=== PATIENT | male | born 1945 | race Caucasian/White ===

== ENCOUNTER 2019-02-06 05:46 | Inpatient (IN) | payer MEDICARE, OTHER ==
[2019-02-06 06:50] LABS: Basophils # (A) 0.1 k/uL (0-0.2); Basophils % (A) 0 %; Eosinophils # (A) 0.1 k/uL (0-0.7); Eosinophils % (A) 0 %; HCT 38.5 % (39.0-53.0); Hypochromasia Slight; Lymphocytes % (A) 4 %; MCH 28.8 pg (25.0-35.0); MCHC 31.1 g/dL (31.0-37.0); MCV 92.5 fL (80.0-100.0); Mean Platelet Volume 6.6; Monocytes # (A) 0.4 k/uL (0-1.0); Monocytes % (A) 2 %; Neutrophils # (A) 23.7 k/uL (1.3-7.7); Neutrophils % (A) 94 %; Platelet Count 330 k/uL (150-450); RBC 4.16 m/uL (4.30-5.90); WBC 25.2 k/uL (3.8-10.6)
[2019-02-06] MEDS ORDERED: LEVOFLOXACIN 750MG-D5W PMX 750 MG in DEXTROSE/WATER 1 150ML.BAG IVPB STA (06:54)
[2019-02-06 06:58] LABS: ALT 19 U/L (21-72); AST 14 U/L (17-59); Albumin 3.1 g/dL (3.5-5.0); Alkaline Phosphatase 72 U/L (38-126); Anion Gap 10 mmol/L; Blood Urea Nitrogen 15 mg/dL (9-20); Calcium 9.2 mg/dL (8.4-10.2); Carbon Dioxide 26 mmol/L (22-30); Chloride 104 mmol/L (98-107); Glucose 248 mg/dL (74-99); Potassium 5.1 mmol/L (3.5-5.1); Sodium 140 mmol/L (137-145); Total Bilirubin 0.8 mg/dL (0.2-1.3); Total Protein 5.7 g/dL (6.3-8.2)
[2019-02-06] MEDS ORDERED: SODIUM CHLORIDE 0.9% 1,000 ML IV ONE (07:04)
--- NOTE | 2019-02-06 07:04 | ED ---
SOB HPI - General Chief Complaint: Shortness of Breath Stated Complaint: Sepsis, ELSA Time Seen by Provider: 02/06/19 06:06 Source: patient, EMS Mode of arrival: ambulatory Limitations: no limitations - History of Present Illness Initial Comments: This patient is a 73-year-old man who arrives as a transfer from [facility]. The patient had gone to that facility earlier tonight for shortness of breath cough, and chest pain with cough. The patient states that symptoms have been coming on over the course of the past 24 hours or so. He states that he was starting to feel similar to an episode that he had in October when he was hospitalized at [facility] for what he is describing as a COPD exacerbation. The patient states that at that time he required intubation. Patient states that his cough is been productive of some thick whitish sputum. He believes he may also had a fever associated. The outside hospital reported that the patient was tachycardic and hypotensive. He received fluid bolus. Patient also was given dose of Zosyn and vancomycin area he reportedly was persistently hypotensive and they placed a central line and started patient on Levophed. On arrival, the patient states that the pain that he was having with the cough has resolved. He states that his breathing seems much better. He does continue to complain of a cough. Review of the outside labs reveals the patient did have leukocytosis with a white count of 25.5 thousand. He was found have lactic acid of 3.0. The patient's outside chest x-rays reviewed and there is right lower lobe infiltrate. MD Complaint: shortness of breath, cough Onset/Timin -: days(s) Severity: moderate Quality: aching Consistency: constant Improves With: nothing Worsens With: coughing, inspiration Known History Of: COPD Associated Symptoms: denies other symptoms Treatments Prior to Arrival: oxygen - Related Data Home Oxygen Therapy: Yes Home Oxygen Amount: 2 Liters Home Medications Medication Instructions Recorded Confirmed ALPRAZolam [Xanax] 0.5 mg PO TID PRN 02/06/19 02/06/19 Albuterol Inhaler [Ventolin Hfa 1 - 2 puff INHALATION RT-Q4H PRN 02/06/19 02/06/19 Inhaler] Aspirin EC [Ecotrin Low Dose] 81 mg PO DAILY 02/06/19 02/06/19 Atorvastatin [Lipitor] 20 mg PO DAILY 02/06/19 02/06/19 Diltiazem Cd [Cardizem Cd] 120 mg PO DAILY 02/06/19 02/06/19 FLUoxetine HCL [PROzac] 20 mg PO DAILY 02/06/19 02/06/19 Fluticasone Nasal [place] [Flonase 1 spr EA NOSTRIL DAILY 02/06/19 02/06/19 Nasal [place]] Fluticasone/Salmeterol [Advair 1 puff INHALATION RT-BID 02/06/19 02/06/19 500-50 Diskus] Ipratropium-Albuterol Nebulize 3 ml INHALATION RT-Q4H PRN 02/06/19 02/06/19 [Duoneb 0.5 mg-3 mg/3 ml Soln] Loperamide [Imodium] 2 mg PO QID PRN 02/06/19 02/06/19 Umeclidinium Brm/Vilanterol Tr 1 puff INHALATION RT-DAILY 02/06/19 02/06/19 [Anoro Ellipta 62.5-25 Mcg INH] metFORMIN HCL [Glucophage] 500 mg PO BID-W/MEALS 02/06/19 02/06/19 Allergies Allergy/AdvReac Type Severity Reaction Status Date / Time No Known Allergies Allergy Unverified 02/06/19 07:31 Review of Systems ROS Statement: Those systems with pertinent positive or pertinent negative responses have been documented in the HPI. ROS Other: All systems not noted in ROS Statement are negative. Constitutional: Reports: chills, weakness Respiratory: Reports: as per HPI, cough, dyspnea. Denies: hemoptysis Cardiovascular: Reports: as per HPI, chest pain. Denies: palpitations, edema, syncope Gastrointestinal: Denies: abdominal pain, nausea, vomiting Genitourinary: Denies: dysuria Musculoskeletal: Denies: back pain Skin: Denies: rash Neurological: Denies: headache Past Medical History Past Medical History: COPD Additional Past Medical History / Comment(s): pneumonia History of Any Multi-Drug Resistant Organisms: MRSA Date of last positivie culture/infection: 2011 Past Surgical History: Orthopedic Surgery Additional Past Surgical History / Comment(s): trachesotmy 2011 Past Psychological History: Anxiety, Depression Smoking Status: Former smoker Past Alcohol Use History: None Reported Past Drug Use History: None Reported - Past Family History Father Family Medical History: Osteoarthritis (OA) Mother Family Medical History: Congestive Heart Failure (CHF), Diabetes Mellitus, Osteoarthritis (OA) Brother(s) Family Medical History: Myocardial Infarction ([place]) Additional Family Medical History / Comment(s): One brother of drowning, One of suicide, One of a heart attack at the age of 52 or 54 General Exam Limitations: no limitations General appearance: alert, in no apparent distress Head exam: Present: atraumatic, normocephalic Eye exam: Present: normal appearance. Absent: scleral icterus, conjunctival injection ENT exam: Present: mucous membranes dry Neck exam: Present: other (Healing tracheostomy) Respiratory exam: Present: wheezes, rales, rhonchi, chest wall tenderness. Absent: respiratory distress, stridor, accessory muscle use Cardiovascular Exam: Present: normal rhythm, tachycardia, normal heart sounds. Absent: systolic murmur, diastolic murmur, rubs, gallop GI/Abdominal exam: Present: soft. Absent: distended, tenderness, guarding, rebound, rigid, mass Extremities exam: Present: normal inspection, normal capillary refill. Absent: pedal edema, calf tenderness Back exam: Present: normal inspection. Absent: CVA tenderness (R), CVA tenderness (L) Neurological exam: Present: alert, oriented X3. Absent: motor sensory deficit Skin exam: Present: warm, dry, intact, normal color. Absent: rash Course Vital Signs 02/06/19 02/06/19 02/06/19 05:47 05:59 06:38 Temperature 98 F Pulse Rate 105 H 100 Respiratory 20 20 Rate Blood Pressure 103/59 112/56 111/63 O2 Sat by Pulse 93 L 97 Oximetry 02/06/19 02/06/19 07:00 08:00 Temperature 97.8 F Pulse Rate 77 94 Respiratory 20 17 Rate Blood Pressure 108/62 105/61 O2 Sat by Pulse 97 97 Oximetry Medical Decision Making - Lab Data Result diagrams: 02/09/19 08:15 02/09/19 08:15 Lab Results 02/06/19 02/06/19 02/06/19 Range/Units 06:29 06:29 06:29 WBC 25.2 H (3.8-10.6) k/uL RBC 4.16 L (4.30-5.90) m/uL Hgb 12.0 L (13.0-17.5) gm/dL Hct 38.5 L (39.0-53.0) % MCV 92.5 (80.0-100.0) fL MCH 28.8 (25.0-35.0) pg MCHC 31.1 (31.0-37.0) g/dL RDW 14.0 (11.5-15.5) % Plt Count 330 (150-450) k/uL Neutrophils % 94 % Lymphocytes % 4 % Monocytes % 2 % Eosinophils % 0 % Basophils % 0 % Neutrophils # 23.7 H (1.3-7.7) k/uL Lymphocytes # 1.0 (1.0-4.8) k/uL Monocytes # 0.4 (0-1.0) k/uL Eosinophils # 0.1 (0-0.7) k/uL Basophils # 0.1 (0-0.2) k/uL Hypochromasia Slight Sodium 140 (137-145) mmol/L Potassium 5.1 (3.5-5.1) mmol/L Chloride 104 (98-107) mmol/L Carbon Dioxide 26 (22-30) mmol/L Anion Gap 10 mmol/L BUN 15 (9-20) mg/dL Creatinine 0.68 (0.66-1.25) mg/dL Est GFR (CKD-EPI)AfAm >90 (>60 ml/min/1.73 sqM) Est GFR (CKD-EPI)NonAf >90 (>60 ml/min/1.73 sqM) Glucose 248 H (74-99) mg/dL Plasma Lactic Acid Issac (0.7-2.0) mmol/L Calcium 9.2 (8.4-10.2) mg/dL Total Bilirubin 0.8 (0.2-1.3) mg/dL AST 14 L (17-59) U/L ALT 19 L (21-72) U/L Alkaline Phosphatase 72 (38-126) U/L Total Protein 5.7 L (6.3-8.2) g/dL Albumin 3.1 L (3.5-5.0) g/dL Influenza Type A RNA Not Detected (Not Detectd) Influenza Type B (PCR) Not Detected (Not Detectd) 02/06/19 Range/Units 06:29 WBC (3.8-10.6) k/uL RBC (4.30-5.90) m/uL Hgb (13.0-17.5) gm/dL Hct (39.0-53.0) % MCV (80.0-100.0) fL MCH (25.0-35.0) pg MCHC (31.0-37.0) g/dL RDW (11.5-15.5) % Plt Count (150-450) k/uL Neutrophils % % Lymphocytes % % Monocytes % % Eosinophils % % Basophils % % Neutrophils # (1.3-7.7) k/uL Lymphocytes # (1.0-4.8) k/uL Monocytes # (0-1.0) k/uL Eosinophils # (0-0.7) k/uL Basophils # (0-0.2) k/uL Hypochromasia Sodium (137-145) mmol/L Potassium (3.5-5.1) mmol/L Chloride (98-107) mmol/L Carbon Dioxide (22-30) mmol/L Anion Gap mmol/L BUN (9-20) mg/dL Creatinine (0.66-1.25) mg/dL Est GFR (CKD-EPI)AfAm (>60 ml/min/1.73 sqM) Est GFR (CKD-EPI)NonAf (>60 ml/min/1.73 sqM) Glucose (74-99) mg/dL Plasma Lactic Acid Issac 4.1 H* (0.7-2.0) mmol/L Calcium (8.4-10.2) mg/dL Total Bilirubin (0.2-1.3) mg/dL AST (17-59) U/L ALT (21-72) U/L Alkaline Phosphatase (38-126) U/L Total Protein (6.3-8.2) g/dL Albumin (3.5-5.0) g/dL Influenza Type A RNA (Not Detectd) Influenza Type B (PCR) (Not Detectd) - EKG Data -: EKG Interpreted by Pa EKG shows normal: sinus rhythm, axis (Normal), intervals (Normal), QRS complexes (Normal) Rate: tachycardia (Rate 102 BPM) Interpretation: nonspecific ST-T wave changes Critical Care Time Critical Care Time: Yes (40 minutes) Disposition Clinical Impression: Sepsis, Pneumonia, Lactic acidosis Disposition: ADMITTED IP TO THIS HOSP Condition: Serious Is patient prescribed a controlled substance at d/c from ED?: No
[2019-02-06] MEDS: SODIUM CHLORIDE 0.9% 1,000 ML IV SCH ×3 (07:22→21:42)
[2019-02-06] MEDS ORDERED: FAMOTIDINE 20 MG/2 ML VIAL IV SCH (09:00)
[2019-02-06 09:18] LABS: Glucose,Whole Blood 203 mg/dL (75-99)
[2019-02-06] MEDS: PIPERACILLIN-TAZOBACTAM 3.375 GM in SODIUM CHLORIDE 0.9% 100 ML IVPB SCH ×3 (09:53→23:24)
[2019-02-06] MEDS ORDERED: LOPERAMIDE 2 MG CAP PO PRN (10:13)
[2019-02-06] MEDS ORDERED: ALBUTEROL NEBULIZED 2.5 MG/3 ML INHALATION PRN (10:13)
[2019-02-06] MEDS ORDERED: IPRATROPIUM-ALBUTEROL 3 ML NEB INHALATION PRN (10:13)
[2019-02-06] MEDS: FLUoxetine HCL 20 MG CAP PO SCH (11:05)
[2019-02-06] MEDS: HEPARIN SODIUM,PORCINE 5,000 UNIT/ML 1 ML VIAL SQ SCH ×3 (11:05→23:24)
[2019-02-06] MEDS: ASPIRIN 81 MG PO SCH (11:05)
[2019-02-06] MEDS: metFORMIN 500 MG TAB PO SCH ×2 (11:05→18:04)
[2019-02-06] MEDS: DILTIAZEM CD 120 MG CAP.ER.24H PO SCH (11:05)
[2019-02-06] MEDS: FLUTICASONE 50MCG/SPRAY NASAL 16GM EA NOSTRIL SCH (11:09)
[2019-02-06 11:24] VITALS: BMI 28.5
[2019-02-06 11:25] LABS: Glucose,Whole Blood 191 mg/dL (75-99)
[2019-02-06] MEDS: IPRATROPIUM-ALBUTEROL 3 ML NEB INHALATION SCH ×4 (11:40→20:26)
[2019-02-06] MEDS ORDERED: IPRATROPIUM 0.5 MG/2.5 ML NEBU INHALATION SCH (12:00)
[2019-02-06] MEDS: INSULIN ASPART (NovoLOG) 100 UNIT/ML VIAL SQ SCH ×3 (12:54→21:42)
[2019-02-06 17:24] LABS: Glucose,Whole Blood 205 mg/dL (75-99)
[2019-02-06] MEDS: ALPRAZolam 0.5 MG TAB PO PRN (18:06)
--- NOTE | 2019-02-06 18:29 | CONS ---
CONSULTATION PULMONARY/CRITICAL CARE CONSULTATION: DATE OF SERVICE: 02/06/2019 Dated February 06, 2019. REASON FOR CONSULTATION: Shortness of breath. A 73-year-old male, well known to me. We actually saw him initially over at [facility] a couple weeks back. The patient apparently went into the [facility] Emergency Room where he was complaining of shortness of breath, cough, chest pain, chest congestion and phlegm production. The patient had not been feeling well for about a day or so prior to being seen there. The patient was feeling very similar to the way he felt when he was hospitalized previously at [facility] back in October. The patient states that his sputum is thick and white. He also has fever and may have some chills as well. In addition, the outside hospital reported that the patient was tachycardic and hypotensive. He received fluid boluses, some Zosyn and vancomycin and shipped down to our ER. He also had a central line placed in his right femoral area and norepinephrine was started. Currently, the patient seems to be doing relatively well. He is sitting on the bed. His tracheostomy is in place. He has got some congested and wet sounding cough. He is not requiring any pressor anymore. He looks quite stable actually. The patient denies any chest pain or chest discomfort. Denies any fever chills today. Still coughing up phlegm. Still quite congested and very short of breath with wheezing. CURRENT MEDICATIONS: Include Xanax, Ventolin inhaler, low-dose aspirin, Lipitor, Cardizem, Prozac, Flonase nasal spray, Advair Diskus, updrafts with albuterol and Atrovent, Imodium, Anoro, metformin. ALLERGIES: There are no known allergies. PAST MEDICAL HISTORY: Positive for pneumonia, respiratory failure requiring long-term mechanical ventilation and eventual tracheostomy insertion. The tracheostomy was placed in 2011. The patient also has a prior episode of pneumonia. He also suffers from hyperlipidemia and anxiety. The patient also has hypertension. The patient also has diabetes mellitus, type 2. SURGICAL HISTORY: Includes tracheostomy and various orthopedic procedures. Again, the tracheostomy was done in 2011. SOCIAL HISTORY: Positive for previous heavy tobacco use. Denies alcohol or illicit drug use. FAMILY HISTORY: Noncontributory. REVIEW OF SYSTEMS: CONSTITUTIONAL: Fever, chills. NEUROLOGIC: Negative. HEENT: Negative. CARDIOVASCULAR: Negative. PULMONARY: Shortness of breath, chest tightness, wheezing, cough, phlegm production. GI: Negative. : Negative. RHEUMATOLOGIC: Negative. IMMUNOLOGIC: Negative. ENDOCRINOLOGIC: Negative. DERMATOLOGIC: Negative. PHYSICAL EXAMINATION: Current vital signs are reviewed, temperature 97.4, heart rate 88, respiratory rate 18, blood pressure 116/59 mean 78, 3 L saturation 95%. Patient appears in no acute distress. HEENT examination is grossly unremarkable. Mucous membranes are moist. Neck is supple. Full range of motion. There is a midline tracheostomy. No adenopathy or thyromegaly. Neck veins are flat. Cardiovascular examination reveals a regular rhythm and rate. S1, S2 normal. Heart rate about 80 beats per minute. No murmur. Lungs reveal coarse inspiratory and expiratory rhonchi and wheezes. Breath sounds are diminished. There is prolongation. Abdomen is soft. Bowel sounds are heard. Extremities are intact. No cyanosis, clubbing, or edema. Skin without rash. Neurologic examination is brief but nonfocal. LABS: Reviewed. White count 25.2, hemoglobin 12, hematocrit 38.5, platelet count 330, 000. Sodium 140, potassium 5.1, chloride 104, CO2 is 26, BUN and creatinine were 15 and 0.68. Plasma lactic acid at 2.6. AST 14, ALT 19, albumin 3.1. Influenza studies are negative. A chest x-ray shows some possible bibasilar, right greater than left atelectasis. Medications are reviewed. The patient is currently on formoterol and updrafts with albuterol and Atrovent. The patient is also receiving Levaquin and Zosyn. No steroids. ASSESSMENT: 1. Chronic obstructive pulmonary disease exacerbation complicated by purulent tracheobronchitis and possible bronchial pneumonia. 2. Previous history of respiratory failure requiring long-term mechanical ventilation. 3. Status post tracheostomy. 4. Previous history of heavy tobacco use. 5. History of hyperlipidemia. 6. History of hypertension. 7. History of diabetes mellitus. 8. Acute on chronic hypoxemic respiratory failure. PLAN: The patient's medications are adjusted accordingly. Will make sure he is on appropriate medications such as short-acting beta agonist, short-acting muscarinic antagonist, inhaled corticosteroids, long-acting beta agonist, antibiotics and systemic corticosteroids. Additional recommendations and suggestions are forthcoming. The patient wants to see us in clinic. He agrees to see us in [place] because he lives up that [address]. No additional recommendations are made. Prognosis is guarded. MMODL / IJN: [id number] /
[2019-02-06] MEDS ORDERED: SYMBICORT 160-4.5 MCG INHALER INHALATION SCH (20:00)
[2019-02-06] MEDS: FORMOTEROL FUMARATE 20 MCG/2 ML NEBU INHALATION SCH (20:26)
[2019-02-06 20:59] LABS: Glucose,Whole Blood 199 mg/dL (75-99)
[2019-02-06] MEDS: FAMOTIDINE 20 MG TAB PO SCH (21:42)
[2019-02-06] MEDS: ATORVASTATIN 20 MG TAB PO SCH (21:42)
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
[2019-02-07] MEDS: SODIUM CHLORIDE 0.9% 1,000 ML IV SCH ×4 (02:11→21:40)
[2019-02-07 02:46] LABS: Basophils % (A) 0 %; Eosinophils # (A) 0.1 k/uL (0-0.7); Eosinophils % (A) 0 %; HCT 34.8 % (39.0-53.0); HGB 10.6 gm/dL (13.0-17.5); Hypochromasia Moderate; Lymphocytes # (A) 1.1 k/uL (1.0-4.8); Lymphocytes % (A) 5 %; MCH 28.7 pg (25.0-35.0); MCHC 30.4 g/dL (31.0-37.0); MCV 94.2 fL (80.0-100.0); Mean Platelet Volume 6.6; Monocytes # (A) 0.7 k/uL (0-1.0); Monocytes % (A) 3 %; Neutrophils # (A) 19.6 k/uL (1.3-7.7); Neutrophils % (A) 90 %; Platelet Count 322 k/uL (150-450); RDW 14.3 % (11.5-15.5); WBC 21.7 k/uL (3.8-10.6)
[2019-02-07 02:56] LABS: Anion Gap 6 mmol/L; Blood Urea Nitrogen 18 mg/dL (9-20); Calcium 9.2 mg/dL (8.4-10.2); Carbon Dioxide 28 mmol/L (22-30); Chloride 107 mmol/L (98-107); Glucose 174 mg/dL (74-99); Potassium 4.6 mmol/L (3.5-5.1); Sodium 141 mmol/L (137-145)
[2019-02-07 06:04] LABS: Glucose,Whole Blood 164 mg/dL (75-99)
[2019-02-07] MEDS: LEVOFLOXACIN 750MG-D5W PMX 750 MG in DEXTROSE/WATER 1 150ML.BAG IVPB SCH (06:32)
[2019-02-07] MEDS: metFORMIN 500 MG TAB PO SCH ×2 (06:32→18:09)
[2019-02-07] MEDS: INSULIN ASPART (NovoLOG) 100 UNIT/ML VIAL SQ SCH ×4 (06:33→21:39)
[2019-02-07] MEDS: FORMOTEROL FUMARATE 20 MCG/2 ML NEBU INHALATION SCH ×2 (07:18→21:46)
[2019-02-07] MEDS: IPRATROPIUM-ALBUTEROL 3 ML NEB INHALATION SCH ×4 (07:19→21:47)
[2019-02-07] MEDS: PIPERACILLIN-TAZOBACTAM 3.375 GM in SODIUM CHLORIDE 0.9% 100 ML IVPB SCH ×3 (08:22→23:43)
[2019-02-07] MEDS: HEPARIN SODIUM,PORCINE 5,000 UNIT/ML 1 ML VIAL SQ SCH ×3 (08:23→21:39)
[2019-02-07] MEDS: ASPIRIN 81 MG PO SCH (08:23)
[2019-02-07] MEDS: DILTIAZEM CD 120 MG CAP.ER.24H PO SCH (08:23)
[2019-02-07] MEDS: FLUoxetine HCL 20 MG CAP PO SCH (08:23)
[2019-02-07] MEDS: FAMOTIDINE 20 MG TAB PO SCH ×2 (08:23→21:38)
[2019-02-07] MEDS: FLUTICASONE 50MCG/SPRAY NASAL 16GM EA NOSTRIL SCH (08:23)
[2019-02-07 11:30] LABS: Glucose,Whole Blood 155 mg/dL (75-99)
--- NOTE | 2019-02-07 13:23 | P.PN ---
Subjective Progress Note Date: 02/07/19 Principal diagnosis: Acute exacerbation of chronic obstructive pulmonary disease, could've a purulent tracheal bronchitis and possible bronchial pneumonia This is 73-year-old white male patient of Dr. Valiente, who was admitted to the hospital on 02/06/2019 after presenting with complaints of shortness of breath, cough, chest pain, chest congestion and phlegm production. Chest x-ray on admission showed a possible bibasilar right greater than left atelectasis. Patient has been started on empiric antibiotics in the form of Levaquin and Zosyn. Patient has a mid midline neck stoma from his previous tracheostomy, is covered with a piece of gauze, and patient is bringing up some yellow colored sputum. Lately on 4 L per nasal cannula his pulse ox is 99%, afebrile, hemodynamically stable, he is ambulating about the room, no acute distress, lung sounds reveal scattered wheezes and rhonchi, his lab work has been reviewed, white blood cell count is 21.7, hemoglobin is 10.6, electrolytes and renal profile were within normal limits, plasma lactic acid is at 1.9. Objective - Vital Signs Vital signs: Vital Signs Temp 98.0 F 02/07/19 08:00 Pulse 102 H 02/07/19 12:32 Resp 15 02/07/19 04:00 BP 108/56 02/07/19 08:00 Pulse Ox 99 02/07/19 08:00 Intake & Output 02/06/19 02/07/19 02/07/19 18:59 06:59 18:59 Intake Total 560 510 Output Total 2400 250 Balance -1840 260 Weight 82.554 kg 85 kg Intake: Intake, IV Titration 100 150 Amount Levofloxacin 750Mg-D5w 100 Pmx 750 mg In Dextrose/ Water 1 150ml.bag @ 100 mls/hr IVPB Q24H [facility] Rx#: [id number] Sodium Chloride 0.9% 1, 150 000 ml @ 150 mls/hr IV . Q6H40M [facility] Rx#:[id number] Oral 460 360 Output: Urine 2400 250 Other: Voiding Method Urinal Urinal # Voids 2 1 - Exam GENERAL EXAM: Alert, pleasant, 73-year-old white male 4 L of oxygen, comfortable in no apparent distress. HEAD: Normocephalic/atraumatic. EYES: Normal reaction of pupils, equal size. Conjunctiva pink, sclera white. NOSE: Clear with pink turbinates. THROAT: No erythema or exudates. NECK: No masses, no JVD, no thyroid enlargement, no adenopathy. Midline neck stoma, covered with the gauze, draining yellowish colored sputum CHEST: No chest wall deformity. Symmetrical expansion. LUNGS: Equal air entry with no crackles, wheeze, rhonchi or dullness. CVS: Regular rate and rhythm, normal S1 and S2, no gallops, no murmurs, no rubs ABDOMEN: Soft, nontender. No hepatosplenomegaly, normal bowel sounds, no g uarding or rigidity. EXTREMITIES: No clubbing, no edema, no cyanosis, 2+ pulses and upper and lower extremities. MUSCULOSKELETAL: Muscle strength and tone normal. SPINE: No scoliosis or deformity SKIN: No rashes CENTRAL NERVOUS SYSTEM: Alert and oriented -3. No focal deficits, tone is normal in all 4 extremities. PSYCHIATRIC: Alert and oriented -3. Appropriate affect. Intact judgment and insight. - Labs CBC & Chem 7: 02/07/19 02:19 02/07/19 02:19 Labs: Abnormal Lab Results - Last 24 Hours (Table) 02/06/19 02/06/19 02/06/19 Range/Units 17:15 17:22 20:57 WBC (3.8-10.6) k/uL RBC (4.30-5.90) m/uL Hgb (13.0-17.5) gm/dL Hct (39.0-53.0) % MCHC (31.0-37.0) g/dL Neutrophils # (1.3-7.7) k/uL Creatinine (0.66-1.25) mg/dL Glucose (74-99) mg/dL POC Glucose (mg/dL) 205 H 199 H (75-99) mg/dL Plasma Lactic Acid Issac 2.6 H* (0.7-2.0) mmol/L 02/06/19 02/07/19 02/07/19 Range/Units 21:08 02:19 02:19 WBC 21.7 H (3.8-10.6) k/uL RBC 3.70 L (4.30-5.90) m/uL Hgb 10.6 L (13.0-17.5) gm/dL Hct 34.8 L (39.0-53.0) % MCHC 30.4 L (31.0-37.0) g/dL Neutrophils # 19.6 H (1.3-7.7) k/uL Creatinine 0.57 L (0.66-1.25) mg/dL Glucose 174 H (74-99) mg/dL POC Glucose (mg/dL) (75-99) mg/dL Plasma Lactic Acid Issac 2.3 H* (0.7-2.0) mmol/L 02/07/19 02/07/19 Range/Units 06:03 11:26 WBC (3.8-10.6) k/uL RBC (4.30-5.90) m/uL Hgb (13.0-17.5) gm/dL Hct (39.0-53.0) % MCHC (31.0-37.0) g/dL Neutrophils # (1.3-7.7) k/uL Creatinine (0.66-1.25) mg/dL Glucose (74-99) mg/dL POC Glucose (mg/dL) 164 H 155 H (75-99) mg/dL Plasma Lactic Acid Issac (0.7-2.0) mmol/L Microbiology - Last 24 Hours (Table) 02/06/19 07:24 Blood Culture - Preliminary Blood No Growth after 24 hours Assessment and Plan Plan: Assessment: #1. Chronic obstructive pulmonary disease exacerbation complicated with purulent tracheal bronchitis and possible bronchial pneumonia #2. Previous history of respiratory failure requiring long-term mechanical ventilation #3. Status post tracheostomy, patient is currently decannulated, and he has midline neck stoma, covered with a gauze which is draining purulent drainage #4. Previous history of heavy tobacco use #5. Hypertension #6. Hyperlipidemia #7. Diabetes mellitus type 2 #8. Acute on chronic hypoxemic respiratory failure related to COPD exacerbation #9. Mild lactic acidosis likely related to sepsis, recovered with IV hydration Plan: We'll continue current medical treatment, continue Zosyn and Levaquin, nebulized bronchodilators, sputum for culture, hemodynamic was stable, no fever or chills, and DVT prophylaxis, we'll continue to follow I performed a history & physical examination of the patient and discussed their management with my nurse practitioner, Katie Mcgovern. I reviewed the nurse practitioner's note and agree with the documented findings and plan of care. Lung sounds are positive for diffuse wheezes and rhonchi. The findings and the impression was discussed with the patient. I attest to the documentation by the nurse practitioner. Time with Patient: Less than 30
[2019-02-07 16:11] LABS: Glucose,Whole Blood 137 mg/dL (75-99)
[2019-02-07 21:11] LABS: Glucose,Whole Blood 229 mg/dL (75-99)
[2019-02-07] MEDS: ALPRAZolam 0.5 MG TAB PO PRN (21:38)
[2019-02-07] MEDS: ATORVASTATIN 20 MG TAB PO SCH (21:38)
[2019-02-08] MEDS: SODIUM CHLORIDE 0.9% 1,000 ML IV SCH ×3 (04:06→21:02)
[2019-02-08] MEDS: INSULIN ASPART (NovoLOG) 100 UNIT/ML VIAL SQ SCH ×4 (06:23→21:01)
[2019-02-08] MEDS: metFORMIN 500 MG TAB PO SCH ×3 (06:23→17:38)
[2019-02-08 06:26] LABS: Glucose,Whole Blood 89 mg/dL (75-99)
[2019-02-08] MEDS: LEVOFLOXACIN 750MG-D5W PMX 750 MG in DEXTROSE/WATER 1 150ML.BAG IVPB SCH (06:28)
[2019-02-08 07:04] LABS: Basophils % (A) 0 %; Eosinophils # (A) 0.1 k/uL (0-0.7); Eosinophils % (A) 1 %; HCT 34.8 % (39.0-53.0); HGB 10.7 gm/dL (13.0-17.5); Hypochromasia Moderate; Lymphocytes # (A) 2.9 k/uL (1.0-4.8); Lymphocytes % (A) 17 %; MCH 28.6 pg (25.0-35.0); MCHC 30.8 g/dL (31.0-37.0); Mean Platelet Volume 7.7; Monocytes # (A) 0.8 k/uL (0-1.0); Monocytes % (A) 5 %; Neutrophils # (A) 12.5 k/uL (1.3-7.7); Neutrophils % (A) 76 %; Platelet Count 357 k/uL (150-450); RBC 3.74 m/uL (4.30-5.90); RDW 14.6 % (11.5-15.5); WBC 16.5 k/uL (3.8-10.6)
[2019-02-08 07:15] LABS: Anion Gap 4 mmol/L; Blood Urea Nitrogen 22 mg/dL (9-20); Calcium 8.7 mg/dL (8.4-10.2); Carbon Dioxide 33 mmol/L (22-30); Chloride 105 mmol/L (98-107); Glucose 88 mg/dL (74-99); Potassium 4.3 mmol/L (3.5-5.1); Sodium 142 mmol/L (137-145)
[2019-02-08] MEDS: FORMOTEROL FUMARATE 20 MCG/2 ML NEBU INHALATION SCH ×2 (08:07→20:55)
[2019-02-08] MEDS: IPRATROPIUM-ALBUTEROL 3 ML NEB INHALATION SCH ×4 (08:08→20:57)
[2019-02-08] MEDS: HEPARIN SODIUM,PORCINE 5,000 UNIT/ML 1 ML VIAL SQ SCH ×2 (08:24→17:39)
[2019-02-08] MEDS: FAMOTIDINE 20 MG TAB PO SCH ×2 (08:24→21:01)
[2019-02-08] MEDS: FLUoxetine HCL 20 MG CAP PO SCH (08:24)
[2019-02-08] MEDS: PIPERACILLIN-TAZOBACTAM 3.375 GM in SODIUM CHLORIDE 0.9% 100 ML IVPB SCH ×2 (08:24→17:38)
[2019-02-08] MEDS: ASPIRIN 81 MG PO SCH (08:24)
[2019-02-08] MEDS: FLUTICASONE 50MCG/SPRAY NASAL 16GM EA NOSTRIL SCH (08:24)
[2019-02-08] MEDS: DILTIAZEM CD 120 MG CAP.ER.24H PO SCH (08:24)
[2019-02-08 11:19] LABS: Glucose,Whole Blood 140 mg/dL (75-99)
[2019-02-08 13:19] LABS: Hemoglobin A1C 6.6 % (4.0-6.0)
[2019-02-08 17:09] LABS: Glucose,Whole Blood 182 mg/dL (75-99)
--- NOTE | 2019-02-08 19:06 | P.PN ---
Subjective Progress Note Date: 02/08/19 Principal diagnosis: Acute exacerbation of chronic obstructive pulmonary disease, could've a purulent tracheal bronchitis and possible bronchial pneumonia This is 73-year-old white male patient of Dr. Valiente, who was admitted to the hospital on 02/06/2019 after presenting with complaints of shortness of breath, cough, chest pain, chest congestion and phlegm production. Chest x-ray on admission showed a possible bibasilar right greater than left atelectasis. Patient has been started on empiric antibiotics in the form of Levaquin and Zosyn. Patient has a mid midline neck stoma from his previous tracheostomy, is covered with a piece of gauze, and patient is bringing up some yellow colored sputum. Lately on 4 L per nasal cannula his pulse ox is 99%, afebrile, hemodynamically stable, he is ambulating about the room, no acute distress, lung sounds reveal scattered wheezes and rhonchi, his lab work has been reviewed, white blood cell count is 21.7, hemoglobin is 10.6, electrolytes and renal profile were within normal limits, plasma lactic acid is at 1.9. On 02/08/2019 patient seen in follow-up on medical surgical floor. Awake and alert, he is breathing easier today, he is on 2 L per nasal cannula, pulse ox of 97%, hemodynamically stable, lung sounds reveal a few scattered wheezes, and rhonchi, overall less bronchospastic on today's exam, no fever or chills, work was reviewed, and there has been a trend down in patients leukocytosis, with blood cell count of 16.5, hemoglobin is 10.7, sodium was 142, potassium is 4.3, chloride was 105, CO2 33, B1 is 22 and creatinine is 0.72. he is ambulating in the room, in no acute distress, his tracheal stoma is covered with a gauze dressing, and there has been decreasing the amount of secretions, blood and sputum cultures so far show no growth. Objective - Vital Signs Vital signs: Vital Signs Temp 98.3 F 02/08/19 17:14 Pulse 99 02/08/19 17:14 Resp 22 02/08/19 17:14 BP 131/72 02/08/19 17:14 Pulse Ox 97 02/08/19 17:14 Intake & Output 02/08/19 02/08/1902/09/19 06:59 18:59 06:59 Intake Total 2600 1790 Output Total 1000 250 Balance 1600 1540 Intake: IV 2600 1300 Piperacillin-Tazobactam 3 200 100 .375 gm In Sodium Chloride 0.9% 100 ml @ 25 mls/hr IVPB Q8HR [facility] Rx# :[id number] Sodium Chloride 0.9% 1, 2400 1200 000 ml @ 150 mls/hr IV . Q6H40M [facility] Rx#:[id number] Oral 490 Output: Urine 1000 250 Other: Voiding Method Urinal # Voids 1 - Exam GENERAL EXAM: Alert, pleasant, 73-year-old white male 3 L of oxygen, comfortable in no apparent distress. HEAD: Normocephalic/atraumatic. EYES: Normal reaction of pupils, equal size. Conjunctiva pink, sclera white. NOSE: Clear with pink turbinates. THROAT: No erythema or exudates. NECK: No masses, no JVD, no thyroid enlargement, no adenopathy. Midline neck stoma, covered with the gauze, draining yellowish colored sputum CHEST: No chest wall deformity. Symmetrical expansion. LUNGS: Equal air entry with no crackles, wheeze, rhonchi or dullness. CVS: Regular rate and rhythm, normal S1 and S2, no gallops, no murmurs, no rubs ABDOMEN: Soft, nontender. No hepatosplenomegaly, normal bowel sounds, no guarding or rigidity. EXTREMITIES: No clubbing, no edema, no cyanosis, 2+ pulses and upper and lower extremities. MUSCULOSKELETAL: Muscle strength and tone normal. SPINE: No scoliosis or deformity SKIN: No rashes CENTRAL NERVOUS SYSTEM: Alert and oriented -3. No focal deficits, tone is normal in all 4 extremities. PSYCHIATRIC: Alert and oriented -3. Appropriate affect. Intact judgment and insight. - Labs CBC & Chem 7: 02/08/19 06:15 02/08/19 06:15 Labs: Abnormal Lab Results - Last 24 Hours (Table) 02/07/19 02/07/19 02/08/19 Range/Units 02:19 21:10 06:15 WBC 16.5 H (3.8-10.6) k/uL RBC 3.74 L (4.30-5.90) m/uL Hgb 10.7 L (13.0-17.5) gm/dL Hct 34.8 L (39.0-53.0) % MCHC 30.8 L (31.0-37.0) g/dL Neutrophils # 12.5 H (1.3-7.7) k/uL Carbon Dioxide (22-30) mmol/L BUN (9-20) mg/dL POC Glucose (mg/dL) 229 H (75-99) mg/dL Hemoglobin A1c 6.6 H (4.0-6.0) % 02/08/19 02/08/19 02/08/19 Range/Units 06:15 11:15 17:07 WBC (3.8-10.6) k/uL RBC (4.30-5.90) m/uL Hgb (13.0-17.5) gm/dL Hct (39.0-53.0) % MCHC (31.0-37.0) g/dL Neutrophils # (1.3-7.7) k/uL Carbon Dioxide 33 H (22-30) mmol/L BUN 22 H (9-20) mg/dL POC Glucose (mg/dL) 140 H 182 H (75-99) mg/dL Hemoglobin A1c (4.0-6.0) % Microbiology - Last 24 Hours (Table) 02/06/19 07:24 Blood Culture - Preliminary Blood No Growth after 48 hours 02/07/19 12:10 Gram Stain - Preliminary Sputum Assessment and Plan Plan: Assessment: #1. Chronic obstructive pulmonary disease exacerbation complicated with purulent tracheal bronchitis and possible bronchial pneumonia #2. Previous history of respiratory failure requiring long-term mechanical ventilation #3. Status post tracheostomy, patient is currently decannulated, and he has midline neck stoma, covered with a gauze which is draining purulent drainage #4. Previous history of heavy tobacco use #5. Hypertension #6. Hyperlipidemia #7. Diabetes mellitus type 2 #8. Acute on chronic hypoxemic respiratory failure related to COPD exacerbation #9. Mild lactic acidosis likely related to sepsis, recovered with IV hydration Plan: Continue current antibiotic coverage, we will obtain repeat chest x-ray in the morning, clinically patient is stable, continue nebulized bronchodilators, Pul micort and Perforomist. I performed a history & physical examination of the patient and discussed their management with my nurse practitioner, Katie Mcgovern. I reviewed the nurse practitioner's note and agree with the documented findings and plan of care. Lung sounds are positive for diffuse wheezes and rhonchi. The findings and the impression was discussed with the patient. I attest to the documentation by the nurse practitioner. Time with Patient: Less than 30
--- NOTE | 2019-02-08 20:15 | P.PN ---
Subjective Progress Note Date: 02/08/19 Interval history:Mr. Schwab is a 73-year-old male with a past medical history of COPD, anxiety, depression status post tracheostomy in 2011 transferred from [facility]. Patient states that he felt his heart racing and also felt unusually dizzy and called 911 from home. Then he was taken to [facility] where he was found to be tachycardic and also hypotensive. Patient received fluid boluses was also given a dose of Zosyn and vancomycin and had a central line placed was started on Levophed. Patient's labs from [place] showed leukocytosis at 25.5 and lactic acid 3. Then he was transferred to [facility] ER. In the ER patient's Levophed has been discontinued his blood pressure was maintained without pressors and in the ER patient's lactic acid has been 4.1. e has been admitted to the floor for further management. Currently the patient is sitting up in the bed appears to be in no acute distress. Patient states that his breathing has improved and he does not have palpitations anymore. Patient thinks that he might have had a fever at home but not sure about it. Patient had tracheostomy done in 2011 and he covers his ostomy opening with a gauze every day. He reports having noticed a little more secretions from his tracheostomy. And was having mild difficulty in breathing. Denies having any cough he felt that his chest was feeling tight but no chest pain. Patient denies having any recent travel. No complaints of having lower extremity swelling. Patient has been started on levofloxacin and Zosyn. 02/08/2019 maintained on nebulized bronchodilators, Levaquin, Zosyn. Afebrile, WBC trending down to 16.7. Sputum culture pending. Preliminary Blood cultures reporting no growth. Maintaining O2 sats in the high 90s on 3 L nasal cannula. Ambulating in room, tolerating exertion well. Objective - Vital Signs Vital signs: Vital Signs Temp 98.3 F 02/08/19 17:14 Pulse 99 02/08/19 17:14 Resp 22 02/08/19 17:14 BP 131/72 02/08/19 17:14 Pulse Ox 97 02/08/19 17:14 Intake & Output 02/08/19 02/08/19 02/09/19 06:59 18:59 06:59 Intake Total 2600 1790 Output Total 1000 250 Balance 1600 1540 Intake: IV 2600 1300 Piperacillin-Tazobactam 3 200 100 .375 gm In Sodium Chloride 0.9% 100 ml @ 25 mls/hr IVPB Q8HR [facility] Rx# :[id number] Sodium Chloride 0.9% 1, 2400 1200 000 ml @ 150 mls/hr IV . Q6H40M [facility] Rx#:[id number] Oral 490 Output: Urine 1000 250 Other: Voiding Method Urinal # Voids 1 - Exam GEN. APPEARANCE: Sitting up at bedside, alert and oriented 3, no acute distress HEAD EXAM: atraumatic, normocephalic, normal inspection EYE EXAM: No pallor. No icterus. NECK EXAM: Patient has midline stoma present. Decreasing purulent secretions on the gauze noticed around the ostomy. Ostomy covered with gauze. RESPIRATORY EXAM: normal lung sounds bilaterally. Occasional fine bibasilar crackles and expiratory wheeze. Absent: respiratory distress, rhonchi, stridor CARDIOVASCULAR EXAM: regular rate, normal rhythm, normal heart sounds. Absent: systolic murmur, diastolic murmur, rubs, gallop, clicks GI/ABDOMINAL EXAM: soft, normal bowel sounds. Absent: distended, tenderness, guarding, rebound, rigid EXTREMITIES EXAM: No peripheral edema. No calf tenderness. NEUROLOGICAL EXAM: alert, oriented X3, no focal neurological deficits PSYCHIATRIC EXAM: normal affect, normal mood SKIN EXAM: warm, dry, intact, normal color. Absent: rash Microbiology 02/06/19 07:24 Blood Blood Culture - Preliminary No Growth after 48 hours 02/07/19 12:10 Sputum Gram Stain - Preliminary - Labs CBC & Chem 7: 02/08/19 06:15 02/08/19 06:15 Labs: Abnormal Lab Results - Last 24 Hours (Table) 02/07/19 02/07/19 02/08/19 Range/Units 02:19 21:10 06:15 WBC 16.5 H (3.8-10.6) k/uL RBC 3.74 L (4.30-5.90) m/uL Hgb 10.7 L (13.0-17.5) gm/dL Hct 34.8 L (39.0-53.0) % MCHC 30.8 L (31.0-37.0) g/dL Neutrophils # 12.5 H (1.3-7.7) k/uL Carbon Dioxide (22-30) mmol/L BUN (9-20) mg/dL POC Glucose (mg/dL) 229 H (75-99) mg/dL Hemoglobin A1c 6.6 H (4.0-6.0) % 02/08/19 02/08/19 02/08/19 Range/Units 06:15 11:15 17:07 WBC (3.8-10.6) k/uL RBC (4.30-5.90) m/uL Hgb (13.0-17.5) gm/dL Hct (39.0-53.0) % MCHC (31.0-37.0) g/dL Neutrophils # (1.3-7.7) k/uL Carbon Dioxide 33 H (22-30) mmol/L BUN 22 H (9-20) mg/dL POC Glucose (mg/dL) 140 H 182 H (75-99) mg/dL Hemoglobin A1c (4.0-6.0) % Microbiology - Last 24 Hours (Table) 02/06/19 07:24 Blood Culture - Preliminary Blood No Growth after 48 hours 02/07/19 12:10 Gram Stain - Preliminary Sputum Assessment and Plan Assessment: -Sepsis, present on admission, secondary to acute COPD exacerbation, purulent tracheobronchitis, possible pneumonia. -Acute on chronic hypoxic respiratory failure secondary to the above. -History of tracheostomy, decannulated. -Former smoker -Diabetes mellitus type 2 -Degenerative joint disease Plan: Continue on current medication regime ,monitoring and symptomatic treatment. Maintain antibiotics, sputum cultures pending. Continue on nebulized bronchodilators. Follow closely with pulmonary. Increase ambulation as tolerated. The impression and plan of care has been dictated as directed. : I performed a history and examination of this patient, discussed the same with the dictator. I agree with the dictator's note ,documented as a scribe. Any additional findings or plans will be noted.
[2019-02-08 20:55] LABS: Glucose,Whole Blood 134 mg/dL (75-99)
[2019-02-08] MEDS: ATORVASTATIN 20 MG TAB PO SCH (21:01)
[2019-02-08] MEDS: ALPRAZolam 0.5 MG TAB PO PRN (21:02)
--- NOTE | 2019-02-08 22:53 | P.PN ---
Subjective Progress Note Date: 02/07/19 Principal diagnosis: Sepsis Mr. Schwab is a 73-year-old male with a past medical history of COPD, anxiety, depression status post tracheostomy in 2011 transferred from [facility]. Patient states that he felt his heart racing and also felt unusually dizzy and called 911 from home. Then he was taken to [facility] where he was found to be tachycardic and also hypotensive. Patient received fluid boluses was also given a dose of Zosyn and vancomycin and had a central line placed was started on Levophed. Patient's labs from [place] showed leukocytosis at 25.5 and lactic acid 3. Then he was transferred to [facility] ER. In the ER patient's Levophed has been discontinued his blood pressure was maintained without pressors and in the ER patient's lactic acid has been 4.2 and he is admitted for further management. On 02/07/19 - Today the patient is lying comfortably in bed appears to be in no acute distress. He states that he is still having secretions that are thick from his tracheal stoma. He mentions that he has given a sample for culture. On review of systems Constitutional-no fever chills or rigors Respiratory-still having thick respiratory secretions, difficulty in breathing improved Cardiovascular-no chest pain palpitations GI-no abdominal pain nausea vomiting or diarrhea Objective - Vital Signs Vital signs: Vital Signs Temp 98.5 F 02/07/19 16:00 Pulse 98 02/07/19 16:24 Resp 15 02/07/19 04:00 BP 136/66 02/07/19 16:00 Pulse Ox 97 02/07/19 16:00 Intake & Output 02/06/19 02/07/19 02/07/19 18:59 06:59 18:59 Intake Total 560 750 Output Total 2400 450 Balance -1840 300 Weight 82.554 kg 85 kg Intake: Intake, IV Titration 100 150 Amount Levofloxacin 750Mg-D5w 100 Pmx 750 mg In Dextrose/ Water 1 150ml.bag @ 100 mls/hr IVPB Q24H [facility] Rx#: [id number] Sodium Chloride 0.9% 1, 150 000 ml @ 150 mls/hr IV . Q6H40M [facility] Rx#:[id number] Oral 460 600 Output: Urine 2400 450 Other: Voiding Method Urinal Urinal # Voids 2 1 - Exam GEN. APPEARANCE: alert, in no apparent distress HEAD EXAM: atraumatic, normocephalic, normal inspection EYE EXAM: No pallor. No icterus. NECK EXAM: Patient has tracheostomy in place. Thick secretions on the gauze noticed around the tracheal stoma. RESPIRATORY EXAM: normal lung sounds bilaterally. Absent: respiratory distress, wheezes, rales, rhonchi, stridor CARDIOVASCULAR EXAM: regular rate, normal rhythm, normal heart sounds. Absent: systolic murmur, diastolic murmur, rubs, gallop, clicks GI/ABDOMINAL EXAM: soft, normal bowel sounds. Absent: distended, tenderness, guarding, rebound, rigid EXTREMITIES EXAM: No peripheral edema. No calf tenderness. NEUROLOGICAL EXAM: alert, oriented X3, no focal neurological deficits - Labs CBC & Chem 7: 02/08/19 06:15 02/08/19 06:15 Labs: Abnormal Lab Results - Last 24 Hours (Table) 02/06/19 02/06/19 02/07/19 Range/Units 20:57 21:08 02:19 WBC 21.7 H (3.8-10.6) k/uL RBC 3.70 L (4.30-5.90) m/uL Hgb 10.6 L (13.0-17.5) gm/dL Hct 34.8 L (39.0-53.0) % MCHC 30.4 L (31.0-37.0) g/dL Neutrophils # 19.6 H (1.3-7.7) k/uL Creatinine (0.66-1.25) mg/dL Glucose (74-99) mg/dL POC Glucose (mg/dL) 199 H (75-99) mg/dL Plasma Lactic Acid Issac 2.3 H* (0.7-2.0) mmol/L 02/07/19 02/07/19 02/07/19 Range/Units 02:19 06:03 11:26 WBC (3.8-10.6) k/uL RBC (4.30-5.90) m/uL Hgb (13.0-17.5) gm/dL Hct (39.0-53.0) % MCHC (31.0-37.0) g/dL Neutrophils # (1.3-7.7) k/uL Creatinine 0.57 L (0.66-1.25) mg/dL Glucose 174 H (74-99) mg/dL POC Glucose (mg/dL) 164 H 155 H (75-99) mg/dL Plasma Lactic Acid Issac (0.7-2.0) mmol/L 02/07/19 Range/Units 16:10 WBC (3.8-10.6) k/uL RBC (4.30-5.90) m/uL Hgb (13.0-17.5) gm/dL Hct (39.0-53.0) % MCHC (31.0-37.0) g/dL Neutrophils # (1.3-7.7) k/uL Creatinine (0.66-1.25) mg/dL Glucose (74-99) mg/dL POC Glucose (mg/dL) 137 H (75-99) mg/dL Plasma Lactic Acid Issac (0.7-2.0) mmol/L Microbiology - Last 24 Hours (Table) 02/06/19 07:24 Blood Culture - Preliminary Blood No Growth after 24 hours Assessment and Plan Assessment: ASSESSMENT Sepsis- due to pneumonia vs Tracheobronchitis History of tracheostomy Type 2 DM Former smoker Degenerative joint disease COPD Plan: As the patient had lactic acidosis and required pressors with a white count he had sepsis, the possible source of infection could be his lungs- pneumonia versus tracheobronchitis. Patient has been started on vancomycin and Zosyn , chnaged to Levo and Zosyn by Pulmonary. Final blood and suputum cultures pending . Continue with breathing treatments. GI DVT prophylaxis. Pulmonary Dr. Hughes has been consulted and following the pt. Further recommendations to follow depending on the progress of the patient.
[2019-02-09] MEDS: HEPARIN SODIUM,PORCINE 5,000 UNIT/ML 1 ML VIAL SQ SCH ×3 (00:39→16:23)
[2019-02-09] MEDS: PIPERACILLIN-TAZOBACTAM 3.375 GM in SODIUM CHLORIDE 0.9% 100 ML IVPB SCH ×3 (00:39→16:23)
[2019-02-09 01:53] LABS: Glucose,Whole Blood 121 mg/dL (75-99)
[2019-02-09] MEDS ORDERED: LEVOFLOXACIN 750 MG TAB PO SCH (07:00)
[2019-02-09 07:07] LABS: Glucose,Whole Blood 99 mg/dL (75-99)
[2019-02-09] MEDS: SODIUM CHLORIDE 0.9% 1,000 ML IV SCH ×3 (07:09→14:23)
[2019-02-09] MEDS: INSULIN ASPART (NovoLOG) 100 UNIT/ML VIAL SQ SCH ×3 (07:09→17:15)
--- NOTE | 2019-02-09 07:25 | XR ---
EXAMINATION TYPE: XR chest 2V DATE OF EXAM: 02/09/2019 COMPARISON: 12/22/2012 HISTORY: Shortness of breath and productive cough TECHNIQUE: Frontal and lateral views of the chest are obtained. FINDINGS: There is pulmonary hyperinflation and flattening of the diaphragms credit resolution representative of under lying COPD. Additionally there is a right middle lobe and to a lesser degree right lung base focal co nsolidation and small right pleural effusion extending up the pleural surface with loculation lateral ly in the upper thorax. Mild interstitial edema is present. Cardia mediastinal silhouette is upper li mits of normal. Osseous structures are grossly intact. IMPRESSION: Right middle lobe and to lesser degree right basilar consolidations concerning for pneum onia with small loculated parapneumonic effusion and interstitial pulmonary edema. Findings are super imposed upon COPD.
[2019-02-09] MEDS: IPRATROPIUM-ALBUTEROL 3 ML NEB INHALATION SCH ×3 (08:43→15:22)
[2019-02-09] MEDS: FORMOTEROL FUMARATE 20 MCG/2 ML NEBU INHALATION SCH (08:43)
[2019-02-09 08:50] LABS: Basophils % (A) 0 %; Eosinophils # (A) 0.3 k/uL (0-0.7); Eosinophils % (A) 2 %; HGB 11.6 gm/dL (13.0-17.5); Hypochromasia Slight; Lymphocytes # (A) 2.3 k/uL (1.0-4.8); Lymphocytes % (A) 19 %; MCH 27.9 pg (25.0-35.0); MCHC 30.5 g/dL (31.0-37.0); MCV 91.2 fL (80.0-100.0); Mean Platelet Volume 6.8; Monocytes # (A) 0.7 k/uL (0-1.0); Monocytes % (A) 6 %; Neutrophils # (A) 8.7 k/uL (1.3-7.7); Neutrophils % (A) 71 %; Platelet Count 380 k/uL (150-450); RBC 4.17 m/uL (4.30-5.90); RDW 14.2 % (11.5-15.5); WBC 12.2 k/uL (3.8-10.6)
[2019-02-09 08:58] LABS: Anion Gap 8 mmol/L; Blood Urea Nitrogen 18 mg/dL (9-20); Calcium 8.5 mg/dL (8.4-10.2); Carbon Dioxide 33 mmol/L (22-30); Chloride 98 mmol/L (98-107); Glucose 148 mg/dL (74-99); Potassium 4.3 mmol/L (3.5-5.1); Sodium 139 mmol/L (137-145)
[2019-02-09] MEDS: metFORMIN 500 MG TAB PO SCH ×2 (09:24→17:15)
[2019-02-09] MEDS: DILTIAZEM CD 120 MG CAP.ER.24H PO SCH (09:24)
[2019-02-09] MEDS: FLUoxetine HCL 20 MG CAP PO SCH (09:24)
[2019-02-09] MEDS: ASPIRIN 81 MG PO SCH (09:24)
[2019-02-09] MEDS: FAMOTIDINE 20 MG TAB PO SCH (09:24)
[2019-02-09 11:20] LABS: Glucose,Whole Blood 126 mg/dL (75-99)
[2019-02-09] MEDS: FLUTICASONE 50MCG/SPRAY NASAL 16GM EA NOSTRIL SCH (11:29)
[2019-02-09 12:03] VITALS: BP 122/75; TEMP 97.4
--- NOTE | 2019-02-09 13:42 | P.PN ---
Subjective Progress Note Date: 02/09/19 Principal diagnosis: Acute exacerbation of chronic obstructive pulmonary disease, complicated by purulent tracheobronchitis and possible bronchial pneumonia. This is 73-year-old white male patient of Dr. Valiente, who was admitted to the hospital on 02/06/2019 after presenting with complaints of shortness of breath, cough, chest pain, chest congestion and phlegm production. Chest x-ray on admission showed a possible bibasilar right greater than left atelectasis. Patient has been started on empiric antibiotics in the form of Levaquin and Zosyn. Patient has a mid midline neck stoma from his previous tracheostomy, is covered with a piece of gauze, and patient is bringing up some yellow colored sputum. Lately on 4 L per nasal cannula his pulse ox is 99%, afebrile, hemodyna mically stable, he is ambulating about the room, no acute distress, lung sounds reveal scattered wheezes and rhonchi, his lab work has been reviewed, white blood cell count is 21.7, hemoglobin is 10.6, electrolytes and renal profile were within normal limits, plasma lactic acid is at 1.9. On 02/08/2019 patient seen in follow-up on medical surgical floor. Awake and alert, he is breathing easier today, he is on 2 L per nasal cannula, pulse ox of 97%, hemodynamically stable, lung sounds reveal a few scattered wheezes, and rhonchi, overall less bronchospastic on today's exam, no fever or chills, work was reviewed, and there has been a trend down in patients leukocytosis, with blood cell count of 16.5, hemoglobin is 10.7, sodium was 142, potassium is 4.3, chloride was 105, CO2 33, B1 is 22 and creatinine is 0.72. he is ambulating in the room, in no acute distress, his tracheal stoma is covered with a gauze dressing, and there has been decreasing the amount of secretions, blood and sputum cultures so far show no growth. Patient was seen today 02/09/2018 in follow-up on the regular medical floor. He is awake and alert in no acute distress. His breathing is back to his baseline. He is maintaining good O2 saturations in the upper 90s on 3 L/m per nasal cannula. He is afebrile. Hemodynamically stable. Blood cultures reveal no growth. Sputum culture reveals no growth. White count 12.2. Hemoglobin 11.6. Creatinine 0.64. He is currently on Zosyn and Levaquin, bronchodilators. Objective - Vital Signs Vital signs: Vital Signs Temp 97.4 F L 02/09/19 12:02 Pulse 101 H 02/09/19 12:02 Resp 20 02/09/19 12:02 BP 122/75 02/09/19 12:02 Pulse Ox 96 02/09/19 12:02 Intake & Output 02/08/19 02/09/19 02/09/19 18:59 06:59 18:59 Intake Total 1790 250 Output Total 250 900 Balance 1540 -650 Intake: IV 1300 250 Piperacillin-Tazobactam 3 100 100 .375 gm In Sodium Chloride 0.9% 100 ml @ 25 mls/hr IVPB Q8HR [facility] Rx# :[id number] Sodium Chloride 0.9% 1, 1200 150 000 ml @ 150 mls/hr IV . Q6H40M [facility] Rx#:[id number] Oral 490 Output: Urine 250 900 Other: Voiding Method Urinal Urinal # Voids 1 - Exam GENERAL EXAM: Alert, pleasant, 73-year-old gentleman, 3 L of oxygen, comfortable in no apparent distress. HEAD: Normocephalic/atraumatic. EYES: Normal reaction of pupils, equal size. Conjunctiva pink, sclera white. NOSE: Clear with pink turbinates. THROAT: No erythema or exudates. NECK: No masses, no JVD, no thyroid enlargement, no adenopathy. Midline neck stoma, covered with the gauze, draining yellowish colored sputum CHEST: No chest wall deformity. Symmetrical expansion. LUNGS: Equal air entry with no crackles, wheeze, rhonchi or dullness. CVS: Regular rate and rhythm, normal S1 and S2, no gallops, no murmurs, no rubs ABDOMEN: Soft, nontender. No hepatosplenomegaly, normal bowel sounds, no guarding or rigidity. EXTREMITIES: No clubbing, no edema, no cyanosis, 2+ pulses and upper and lower extremities. MUSCULOSKELETAL: Muscle strength and tone normal. SPINE: No scoliosis or deformity SKIN: No rashes CENTRAL NERVOUS SYSTEM: Alert and oriented -3. No focal deficits, tone is normal in all 4 extremities. PSYCHIATRIC: Alert and oriented -3. Appropriate affect. Intact judgment and insight. - Labs CBC & Chem 7: 02/09/19 08:15 02/09/19 08:15 Labs: Abnormal Lab Results - Last 24 Hours (Table) 02/08/19 02/08/19 02/09/19 Range/Units 17:07 20:39 01:51 WBC (3.8-10.6) k/uL RBC (4.30-5.90) m/uL Hgb (13.0-17.5) gm/dL Hct (39.0-53.0) % MCHC (31.0-37.0) g/dL Neutrophils # (1.3-7.7) k/uL Carbon Dioxide (22-30) mmol/L Creatinine (0.66-1.25) mg/dL Glucose (74-99) mg/dL POC Glucose (mg/dL) 182 H 134 H 121 H (75-99) mg/dL 02/09/19 02/09/19 02/09/19 Range/Units 08:15 08:15 11:19 WBC 12.2 H (3.8-10.6) k/uL RBC 4.17 L (4.30-5.90) m/uL Hgb 11.6 L (13.0-17.5) gm/dL Hct 38.0 L (39.0-53.0) % MCHC 30.5 L (31.0-37.0) g/dL Neutrophils # 8.7 H (1.3-7.7) k/uL Carbon Dioxide 33 H (22-30) mmol/L Creatinine 0.64 L (0.66-1.25) mg/dL Glucose 148 H (74-99) mg/dL POC Glucose (mg/dL) 126 H (75-99) mg/dL Microbiology - Last 24 Hours (Table) 02/07/19 12:10 Gram Stain - Final Sputum Sputum Culture - Final 02/06/19 07:24 Blood Culture - Preliminary Blood No Growth after 72 hours Assessment and Plan Assessment: Assessment: #1. Chronic obstructive pulmonary disease exacerbation complicated with purulent tracheal bronchitis and possible bronchial pneumonia #2. Previous history of respiratory failure requiring long-term mechanical ventilation #3. Status post tracheostomy, patient is currently decannulated, and he has mi dline neck stoma, covered with a gauze which is draining purulent drainage #4. Previous history of heavy tobacco use #5. Hypertension #6. Hyperlipidemia #7. Diabetes mellitus type 2 #8. Acute on chronic hypoxemic respiratory failure related to COPD exacerbation #9. Mild lactic acidosis likely related to sepsis, recovered with IV hydration Plan: The patient was seen and evaluated by Dr. Raymond. He is currently stable from the pulmonary standpoint he could be discharged home on his home luminary medications along with a course of antibiotics. He'll be seen in our office in 1-2 weeks' time. He is encouraged to call sooner with any recurrence of symptoms or other questions or concerns. I, the cosigning physician, performed a history & physical examination of the patient. Lungs sounds with faint end expiratory wheeze, diminished. Maintaining good O2 saturations in the 90s on 3 L/m per nasal cannula. I discussed the assessment and plan of care with my nurse practitioner, Kathy Arango. I attest to the above note as dictated by her.
[2019-02-09 15:24] VITALS: RESP 16
[2019-02-09 15:35] VITALS: PULSE 101
--- NOTE | 2019-02-09 17:40 | P.DS ---
Providers Date of admission: 02/06/19 06:54 Expected date of discharge: 02/09/19 Attending physician: Megan Hamm Consults: 02/06/19 07:26 Consult Physician Routine Consulting Provider: Davi Hughes Reason/Comments: sepsis and pneumonia. Do you want consulting provider notified?: Yes Primary care physician: [facility] Course: Final Diagnoses: -Sepsis, present on admission, secondary to acute COPD exacerbation, purulent tracheobronchitis, possible bronchial pneumonia. -Acute on chronic hypoxic respiratory failure secondary to the above. -History of tracheostomy, decannulated. -Former smoker -Diabetes mellitus type 2 -Degenerative joint disease Hospital course:Mr. Schwab is a 73-year-old male with a past medical history of COPD, anxiety, depression status post tracheostomy in 2011 transferred from [facility]. Patient states that he felt his heart racing and also felt unusually dizzy and called 911 from home. Then he was taken to [facility] where he was found to be tachycardic and also hypotensive. Patient received fluid boluses was also given a dose of Zosyn and vancomycin and had a central line placed was started on Levophed. Patient's labs from [place] showed leukocytosis at 25.5 and lactic acid 3. Then he was transferred to [facility] ER. In the ER patient's Levophed has been discontinued his blood pressure was maintained without pressors and in the ER patient's lactic acid has been 4.1. e has been admitted to the floor for further management. Currently the patient is sitting up in the bed appears to be in no acute distress. Patient states that his breathing has improved and he does not have palpitations anymore. Patient thinks that he might have had a fever at home but not sure about it. Patient had tracheostomy done in 2011 and he covers his ostomy opening with a gauze every day. He reports having noticed a little more secretions from his tracheostomy. And was having mild difficulty in breathing. Denies having any cough he felt that his chest was feeling tight but no chest pain. Patient denies having any recent travel. No complaints of having lower extremity swelling. Patient has been started on levofloxacin and Zosyn. 02/08/2019 maintained on nebulized bronchodilators, Levaquin, Zosyn. Afebrile, WBC trending down to 16.7. Sputum culture pending. Preliminary Blood cultures reporting no growth. Maintaining O2 sats in the high 90s on 3 L nasal cannula. Ambulating in room, tolerating exertion well. 02/09/2019 sputum and blood cultures reporting no growth. Significant clinical improvement. Cleared by pulmonary for discharge. Patient is being discharged home in a stable condition with guarded prognosis. - Exam GEN. APPEARANCE: alert and oriented 3, no acute distress RESPIRATORY EXAM: normal lung sounds bilaterally. CARDIOVASCULAR EXAM: regular rate, normal rhythm, normal heart sounds. GI/ABDOMINAL EXAM: soft, normal bowel sounds. NEUROLOGICAL EXAM: no focal neurological deficits Microbiology 02/07/19 12:10 Sputum Gram Stain - Final 02/07/19 12:10 Sputum Sputum Culture - Final 02/06/19 07:24 Blood Blood Culture - Preliminary No Growth after 72 hours The impression and plan of care has been dictated as directed. : I performed a history and examination of this patient, discussed the same with the dictator. I agree with the dictator's note ,documented as a scribe. Any additional findings or plans will be noted. Time taken: 35 minutes Patient Condition at Discharge: Stable Plan - Discharge Summary Discharge Rx Participant: No New Discharge Prescriptions: New Levofloxacin [Levaquin] 750 mg PO Q24H #5 tab predniSONE 10 mg PO DIRECTED #30 tab Continue Umeclidinium Brm/Vilanterol Tr [Anoro Ellipta 62.5-25 Mcg INH] 1 puff INHALATION RT-DAILY Fluticasone Nasal [place] [Flonase Nasal [place]] 1 spr EA NOSTRIL DAILY Diltiazem Cd [Cardizem CD] 120 mg PO DAILY Albuterol Inhaler [Ventolin Hfa Inhaler] 1 - 2 puff INHALATION RT-Q4H PRN PRN Reason: Shortness Of Breath metFORMIN HCL [Glucophage] 500 mg PO BID-W/MEALS Loperamide [Imodium] 2 mg PO QID PRN PRN Reason: Loose Stool Fluticasone/Salmeterol [Advair 500-50 Diskus] 1 puff INHALATION RT-BID Atorvastatin [Lipitor] 20 mg PO DAILY Aspirin EC [Ecotrin Low Dose] 81 mg PO DAILY FLUoxetine HCL [PROzac] 20 mg PO DAILY ALPRAZolam [Xanax] 0.5 mg PO TID PRN PRN Reason: Anxiety Ipratropium-Albuterol Nebulize [Duoneb 0.5 mg-3 mg/3 ml Soln] 3 ml INHALATION RT-Q4H PRN PRN Reason: Shortness Of Breath Discharge Medication List ALPRAZolam [Xanax] 0.5 mg PO TID PRN 02/06/19 [History] Albuterol Inhaler [Ventolin Hfa Inhaler] 1 - 2 puff INHALATION RT-Q4H PRN 02/06/19 [History] Aspirin EC [Ecotrin Low Dose] 81 mg PO DAILY 02/06/19 [History] Atorvastatin [Lipitor] 20 mg PO DAILY 02/06/19 [History] Diltiazem Cd [Cardizem CD] 120 mg PO DAILY 02/06/19 [History] FLUoxetine HCL [PROzac] 20 mg PO DAILY 02/06/19 [History] Fluticasone Nasal [place] [Flonase Nasal [place]] 1 spr EA NOSTRIL DAILY 02/06/19 [History] Fluticasone/Salmeterol [Advair 500-50 Diskus] 1 puff INHALATION RT-BID 02/06/19 [History] Ipratropium-Albuterol Nebulize [Duoneb 0.5 mg-3 mg/3 ml Soln] 3 ml INHALATION RT-Q4H PRN 02/06/19 [History] Loperamide [Imodium] 2 mg PO QID PRN 02/06/19 [History] Umeclidinium Brm/Vilanterol Tr [Anoro Ellipta 62.5-25 Mcg INH] 1 puff INHALATION RT-DAILY 02/06/19 [History] metFORMIN HCL [Glucophage] 500 mg PO BID-W/MEALS 02/06/19 [History] Levofloxacin [Levaquin] 750 mg PO Q24H #5 tab 02/09/19 [Rx] predniSONE 10 mg PO DIRECTED #30 tab 02/09/19 [Rx] Follow up Appointment(s)/Referral(s): Prasanna Valiente MD [Primary Care Provider] - 02/18/19 2:30 pm Kal Raymond MD [STAFF PHYSICIAN] - 02/17/19 1:15 pm Ambulatory/Diagnostic Orders: Complete Blood Count w/diff [LAB.AMB] Time Frame: 3 Days, Location: None Coco cted Patient Instructions/Handouts: Prednisone (By mouth), Levofloxacin (By mouth), Sepsis (GEN), Pneumonia (DC)
== END 2019-02-09 17:30 | disposition home or self-care (01) | DRG 871 ==
LOC: EC 05:46 → 3SCARD 06:54 → 3NMEDONC 02-08 12:04
PROVIDERS: ADMIT Hospitalist; ATTEND Hospitalist
DX: A41.9 Sepsis, unspecified organism (principal); J18.9 Pneumonia, unspecified organism; J96.21 Acute and chronic respiratory failure with hypoxia; E87.2 Acidosis; J44.0 Chronic obstructive pulmonary disease with (acute) lower respiratory infection; J44.1 Chronic obstructive pulmonary disease with (acute) exacerbation; E11.9 Type 2 diabetes mellitus without complications; E78.5 Hyperlipidemia, unspecified; F32.9 Major depressive disorder, single episode, unspecified; F41.9 Anxiety disorder, unspecified; I10 Essential (primary) hypertension; M19.90 Unspecified osteoarthritis, unspecified site; Z79.82 Long term (current) use of aspirin; Z79.84 Long term (current) use of oral hypoglycemic drugs; Z79.899 Other long term (current) drug therapy; Z82.49 Family history of ischemic heart disease and other diseases of the circulatory system; Z83.3 Family history of diabetes mellitus; Z87.891 Personal history of nicotine dependence; Z93.0 Tracheostomy status; Z87.01 Personal history of pneumonia (recurrent); Z86.14 Personal history of Methicillin resistant Staphylococcus aureus infection; Z82.61 Family history of arthritis; Z81.8 Family history of other mental and behavioral disorders
CPT/HCPCS: 36415; 71046; 80048; 80053; 83036; 83605; 85025; 87040; 87070; 87205; 87502; 93005; 94640; 94760; 96365; 99291

== ENCOUNTER 2022-09-20 13:41 | Inpatient (IN) | payer MEDICARE, OTHER ==
--- NOTE | 2022-09-20 14:04 | ED ---
SOB HPI - General Chief Complaint: Shortness of Breath Stated Complaint: shortness of breath Time Seen by Provider: 09/20/22 13:49 Source: patient, EMS, RN notes reviewed - History of Present Illness Initial Comments: Patient is a pleasant 77-year-old male presents to the emergency room via EMS with complaints of worsening shortness of breath and increased oxygen needs at home. He reports that he has been having increased shortness of breath over the last week and over the last 3 days he has required increased amounts of oxygen he is typically on 3 L nasal cannula and has been meaning to utilize 4-5 L nasal cannula. He states that today on 5 L he was unable to get his oxygen saturations above 87%. In addition to the shortness of breath he does complain of a cough with occasional sputum production. He denies any fevers chills chest pain, nausea, vomiting, known exposure to flu or COVID. 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 In addition to his respiratory history he has a hip past medical history significant for hypertension, hyperlipidemia depression and anxiety. - Related Data Home Medications Medication Instructions Recorded Confirmed ALPRAZolam [Xanax] 0.5 mg PO TID PRN 02/06/19 02/06/19 Albuterol Inhaler [Ventolin Hfa 1 - 2 puff INHALATION RT-Q4H PRN 02/06/19 02/06/19 Inhaler] Aspirin EC [Ecotrin Low Dose] 81 mg PO DAILY 02/06/19 02/06/19 Atorvastatin [Lipitor] 20 mg PO DAILY 02/06/19 02/06/19 Diltiazem Cd [Cardizem CD] 120 mg PO DAILY 02/06/19 02/06/19 FLUoxetine HCL [PROzac] 20 mg PO DAILY 02/06/19 02/06/19 Fluticasone Nasal [place] [Flonase 1 spr EA NOSTRIL DAILY 02/06/19 02/06/19 Nasal [place]] Fluticasone Propion/Salmeterol 1 puff INHALATION RT-BID 02/06/19 02/06/19 [Advair 500-50 Diskus] Ipratropium-Albuterol Nebulize 3 ml INHALATION RT-Q4H PRN 02/06/19 02/06/19 [Duoneb 0.5 mg-3 mg/3 ml Soln] Loperamide [Imodium] 2 mg PO QID PRN 02/06/19 02/06/19 Umeclidinium Brm/Vilanterol Tr 1 puff INHALATION RT-DAILY 02/06/19 02/06/19 [Anoro Ellipta 62.5-25 Mcg INH] metFORMIN HCL [Glucophage] 500 mg PO BID-W/MEALS 02/06/19 02/06/19 Previous Rx's Medication Instructions Recorded Levofloxacin [Levaquin] 750 mg PO Q24H #5 tab 02/09/19 predniSONE 10 mg PO DIRECTED #30 tab 02/09/19 Allergies Allergy/AdvReac Type Severity Reaction Status Date / Time No Known Allergies Allergy Verified 09/20/22 14:13 Review of Systems ROS Statement: Those systems with pertinent positive or pertinent negative responses have been documented in the HPI. ROS Other: All systems not noted in ROS Statement are negative. Past Medical History Past Medical History: COPD Additional Past Medical History / Comment(s): pneumonia History of Any Multi-Drug Resistant Organisms: MRSA Date of last positivie culture/infection: 2011 MDRO Source:: sputum Past Surgical History: Orthopedic Surgery Additional Past Surgical History / Comment(s): trachesotmy 2011 Past Anesthesia/Blood Transfusion Reactions: No Reported Reaction Past Psychological History: Anxiety, Depression Past Alcohol Use History: None Reported Past Drug Use History: None Reported - Past Family History Father Family Medical History: Osteoarthritis (OA) Mother Family Medical History: Congestive Heart Failure (CHF), Diabetes Mellitus, Osteoarthritis (OA) Brother(s) Family Medical History: Myocardial Infarction (AR) Additional Family Medical History / Comment(s): One brother of drowning, One of suicide, One of a heart attack at the age of 52 or 54 General Exam Limitations: no limitations General appearance: alert, in no apparent distress Head exam: Present: atraumatic, normocephalic, normal inspection Eye exam: Present: normal appearance, PERRL, EOMI. Absent: scleral icterus, conjunctival injection, periorbital swelling ENT exam: Present: normal exam, mucous membranes moist Neck exam: Present: other (Tracheostoma with dressing intact) Respiratory exam: Present: respiratory distress (Intermittent use of the accesory muscles oxygenating well on 5 L nasal cannula with intermittent episodes of tachypnea), wheezes (fine upper expiratory), accessory muscle use (Occasional tripoding and purse lipped breathing), decreased breath sounds. Absent: rales, rhonchi Cardiovascular Exam: Present: regular rate, normal rhythm, normal heart sounds. Absent: systolic murmur, diastolic murmur, rubs, gallop, clicks GI/Abdominal exam: Present: soft, normal bowel sounds. Absent: distended, tenderness, guarding, rebound, rigid Extremities exam: Present: normal inspection. Absent: pedal edema, joint swelling Back exam: Present: normal inspection Neurological exam: Present: alert, oriented X3, CN II-XII intact Psychiatric exam: Present: normal affect, normal mood Skin exam: Present: warm, dry, intact, normal color, other (sylvester complexion). Absent: rash Course Vital Signs 09/20/22 09/20/22 09/20/22 13:55 14:00 15:32 Temperature 98.1 F Pulse Rate 94 92 Respiratory 18 22 Rate Blood Pressure 112/52 O2 Sat by Pulse 99 Oximetry 09/20/22 15:38 Temperature Pulse Rate 92 Respiratory Rate Blood Pressure O2 Sat by Pulse Oximetry Medical Decision Making - Medical Decision Making 77-year-old male with known history of hypoxic COPD requiring home oxygen on several inhalers and nebulized treatments at home presenting with increased shortness of breath and increased oxygen demand. No coarse rales noted on exam highly suspect COPD exacerbation given lack of significant airflow. Will obtain chest x-ray, EKG, CBC, CMP, troponin, coags along with lactic acid and blood cultures in case of pneumonia. Will obtain chest x-ray as well. Will get general lab treatment along with IV Solu-Medrol and monitor response. Labs reveal elevated lactic acid and elevated CO2 will add venous blood gases. No evidence of severe decompensation indicating need for arterial blood gases or BiPAP at this time. Chest x-ray negative for acute processes. CBC reveals mild leukocytosis. Tolerated steroids and nebulized treatment well. Still with occasional pursed lip breathing and tri-poding along with increased oxygenation needs. Patient will need admission for acute COPD exacerbation. Dr. Lizama notified regarding patient's status and need for admission. Orders received for admission along with consult to pulmonary Dr. Raymond is his primary court door fitter. Case discussed with Dr. Ambrosio. - Lab Data Result diagrams: 09/20/22 14:44 09/20/22 14:44 Lab Results 09/20/22 09/20/22 09/20/22 Range/Units 14:44 14:44 14:44 WBC 10.9 H (3.8-10.6) k/uL RBC 4.37 (4.30-5.90) m/uL Hgb 13.2 (13.0-17.5) gm/dL Hct 42.8 (39.0-53.0) % MCV 98.0 (80.0-100.0) fL MCH 30.3 (25.0-35.0) pg MCHC 30.9 L (31.0-37.0) g/dL RDW 12.7 (11.5-15.5) % Plt Count 240 (150-450) k/uL MPV 8.3 Neutrophils % 87 % Lymphocytes % 9 % Monocytes % 3 % Eosinophils % 1 % Basophils % 0 % Neutrophils # 9.5 H (1.3-7.7) k/uL Lymphocytes # 1.0 (1.0-4.8) k/uL Monocytes # 0.3 (0-1.0) k/uL Eosinophils # 0.1 (0-0.7) k/uL Basophils # 0.0 (0-0.2) k/uL Hypochromasia Marked PT 9.7 (9.0-12.0) sec INR 0.9 (<1.2) APTT 21.0 L (22.0-30.0) sec Sodium 139 (137-145) mmol/L Potassium 4.6 (3.5-5.1) mmol/L Chloride 90 L (98-107) mmol/L Carbon Dioxide 41 H* (22-30) mmol/L Anion Gap 8 mmol/L BUN 22 H (9-20) mg/dL Creatinine 0.58 L (0.66-1.25) mg/dL Est GFR (CKD-EPI)AfAm >90 (>60 ml/min/1.73 sqM) Est GFR (CKD-EPI)NonAf >90 (>60 ml/min/1.73 sqM) Glucose 371 H (74-99) mg/dL Plasma Lactic Acid Issac (0.7-2.0) mmol/L Calcium 8.6 (8.4-10.2) mg/dL Total Bilirubin 0.5 (0.2-1.3) mg/dL AST 20 (17-59) U/L ALT 16 (4-49) U/L Alkaline Phosphatase 74 (38-126) U/L Troponin I (0.000-0.034) ng/mL Total Protein 6.2 L (6.3-8.2) g/dL Albumin 3.9 (3.5-5.0) g/dL Coronavirus (PCR) (Not Detectd) Influenza Type A RNA (Not Detectd) Influenza Type B (PCR) (Not Detectd) 09/20/22 09/20/22 09/20/22 Range/Units 14:44 14:58 15:03 WBC (3.8-10.6) k/uL RBC (4.30-5.90) m/uL Hgb (13.0-17.5) gm/dL Hct (39.0-53.0) % MCV (80.0-100.0) fL MCH (25.0-35.0) pg MCHC (31.0-37.0) g/dL RDW (11.5-15.5) % Plt Count (150-450) k/uL MPV Neutrophils % % Lymphocytes % % Monocytes % % Eosinophils % % Basophils % % Neutrophils # (1.3-7.7) k/uL Lymphocytes # (1.0-4.8) k/uL Monocytes # (0-1.0) k/uL Eosinophils # (0-0.7) k/uL Basophils # (0-0.2) k/uL Hypochromasia PT (9.0-12.0) sec INR (<1.2) APTT (22.0-30.0) sec Sodium (137-145) mmol/L Potassium (3.5-5.1) mmol/L Chloride (98-107) mmol/L Carbon Dioxide (22-30) mmol/L Anion Gap mmol/L BUN (9-20) mg/dL Creatinine (0.66-1.25) mg/dL Est GFR (CKD-EPI)AfAm (>60 ml/min/1.73 sqM) Est GFR (CKD-EPI)NonAf (>60 ml/min/1.73 sqM) Glucose (74-99) mg/dL Plasma Lactic Acid Issac 3.8 H* (0.7-2.0) mmol/L Calcium (8.4-10.2) mg/dL Total Bilirubin (0.2-1.3) mg/dL AST (17-59) U/L ALT (4-49) U/L Alkaline Phosphatase (38-126) U/L Troponin I <0.012 (0.000-0.034) ng/mL Total Protein (6.3-8.2) g/dL Albumin (3.5-5.0) g/dL Coronavirus (PCR) (Not Detectd) Influenza Type A RNA Not Detected (Not Detectd) Influenza Type B (PCR) Not Detected (Not Detectd) 09/20/22 Range/Units 15:03 WBC (3.8-10.6) k/uL RBC (4.30-5.90) m/uL Hgb (13.0-17.5) gm/dL Hct (39.0-53.0) % MCV (80.0-100.0) fL MCH (25.0-35.0) pg MCHC (31.0-37.0) g/dL RDW (11.5-15.5) % Plt Count (150-450) k/uL MPV Neutrophils % % Lymphocytes % % Monocytes % % Eosinophils % % Basophils % % Neutrophils # (1.3-7.7) k/uL Lymphocytes # (1.0-4.8) k/uL Monocytes # (0-1.0) k/uL Eosinophils # (0-0.7) k/uL Basophils # (0-0.2) k/uL Hypochromasia PT (9.0-12.0) sec INR (<1.2) APTT (22.0-30.0) sec Sodium (137-145) mmol/L Potassium (3.5-5.1) mmol/L Chloride (98-107) mmol/L Carbon Dioxide (22-30) mmol/L Anion Gap mmol/L BUN (9-20) mg/dL Creatinine (0.66-1.25) mg/dL Est GFR (CKD-EPI)AfAm (>60 ml/min/1.73 sqM) Est GFR (CKD-EPI)NonAf (>60 ml/min/1.73 sqM) Glucose (74-99) mg/dL Plasma Lactic Acid Issac (0.7-2.0) mmol/L Calcium (8.4-10.2) mg/dL Total Bilirubin (0.2-1.3) mg/dL AST (17-59) U/L ALT (4-49) U/L Alkaline Phosphatase (38-126) U/L Troponin I (0.000-0.034) ng/mL Total Protein (6.3-8.2) g/dL Albumin (3.5-5.0) g/dL Coronavirus (PCR) Not Detected (Not Detectd) Influenza Type A RNA (Not Detectd) Influenza Type B (PCR) (Not Detectd) - EKG Data EKG Comments: Sinus rhythm, ventricular rate 94 bpm, AK interval 151 ms, QRS duration 84 ms, QT/QTC 367/419 ms, PRT axes 53, 57, 76 - Radiology Data Radiology results: report reviewed, image reviewed Chest x-ray two-view impression no evidence of acute pulmonary disease hyperinflation compatible with COPD Disposition Clinical Impression: COPD exacerbation Disposition: ADMITTED IP TO THIS HOSP Condition: Stable Is patient prescribed a controlled substance at d/c from ED?: No Referrals: None,Stated [REFERRING] - 1-2 days Time of Disposition: 16:12
--- NOTE | 2022-09-20 14:40 | XR ---
EXAMINATION TYPE: XR chest 2V DATE OF EXAM: 09/20/2022 COMPARISON: 02/09/19 HISTORY: Shortness of breath TECHNIQUE: Frontal and lateral views of the chest are obtained. FINDINGS: Scattered senescent parenchymal changes noted. Hyperinflation compatible with COPD. No evidence for infiltrate. No evidence for atelectasis. Heart size is stable. Mediastinal structures are stable and grossly unremarkable. No evidence for hilar prominence. Degenerative changes dorsal spine. IMPRESSION: 1. No evidence for acute pulmonary disease.
[2022-09-20] MEDS ORDERED: methylPREDNISolone SOD SUCCI 125 MG/2 ML VIAL IV STA (14:45)
[2022-09-20] MEDS ORDERED: IPRATROPIUM-ALBUTEROL 3 ML NEB INHALATION STA (14:45)
[2022-09-20 15:26] LABS: Basophils % (A) 0 %; Eosinophils # (A) 0.1 k/uL (0-0.7); Eosinophils % (A) 1 %; HCT 42.8 % (39.0-53.0); HGB 13.2 gm/dL (13.0-17.5); Hypochromasia Marked; Lymphocytes % (A) 9 %; MCH 30.3 pg (25.0-35.0); MCHC 30.9 g/dL (31.0-37.0); Mean Platelet Volume 8.3; Monocytes # (A) 0.3 k/uL (0-1.0); Monocytes % (A) 3 %; Neutrophils # (A) 9.5 k/uL (1.3-7.7); Neutrophils % (A) 87 %; Platelet Count 240 k/uL (150-450); RBC 4.37 m/uL (4.30-5.90); RDW 12.7 % (11.5-15.5); WBC 10.9 k/uL (3.8-10.6)
[2022-09-20 15:40] LABS: INR 0.9 (<1.2); Prothrombin Time 9.7 sec (9.0-12.0)
[2022-09-20 15:46] LABS: ALT 16 U/L (4-49); AST 20 U/L (17-59); African American GFR (CKD) >90 (>60 ml/min/1.73 sqM); Albumin 3.9 g/dL (3.5-5.0); Alkaline Phosphatase 74 U/L (38-126); Blood Urea Nitrogen 22 mg/dL (9-20); Calcium 8.6 mg/dL (8.4-10.2); Chloride 90 mmol/L (98-107); Glucose 371 mg/dL (74-99); Non-African American GFR(CKD) >90 (>60 ml/min/1.73 sqM); Potassium 4.6 mmol/L (3.5-5.1); Sodium 139 mmol/L (137-145); Total Bilirubin 0.5 mg/dL (0.2-1.3); Total Protein 6.2 g/dL (6.3-8.2)
[2022-09-20 15:53] LABS: Anion Gap 8 mmol/L
[2022-09-20 15:57] LABS: Carbon Dioxide 41 mmol/L (22-30)
[2022-09-20] MEDS ORDERED: NALOXONE 0.4 MG/ML 1 ML VIAL IV PRN (16:00)
[2022-09-20] MEDS ORDERED: CALCIUM CARBONATE 500 MG CHEWABLE PO PRN (17:59)
[2022-09-20] MEDS ORDERED: ONDANSETRON 4 MG/2 ML VIAL IVP PRN (17:59)
[2022-09-20] MEDS ORDERED: LACTULOSE 20 GM/30 ML CUP PO PRN (17:59)
[2022-09-20] MEDS ORDERED: ACETAMINOPHEN TAB 325 MG TAB PO PRN (17:59)
[2022-09-20] MEDS ORDERED: DEXTROSE 50% SYRINGE 50 ML IVP PRN ×2 (17:59)
--- NOTE | 2022-09-20 18:09 | P.HPIM ---
History of Present Illness H&P Date: 09/20/22 Chief Complaint: Short of breath This is a pleasant 77-year-old patient who follows with Dr. 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 Patient able to get around the house without any support. Patient presents with 4 days of worsening shortness of breath. Slight cough which is quite his baseline. Little phlegm if any. No fever no chills. No edema. Appetite is fair. Tired. Rundown. Admitted with COPD exacerbation. Review of systems: GEN.: Tired EYES: None HEENT: None NECK: None RESPIRATORY: As above CARDIOVASCULAR: No chest pain GASTROINTESTINAL: None GENITOURINARY: None MUSCULOSKELETAL: None LYMPHATICS: None HEMATOLOGICAL: None PSYCHIATRY: None NEUROLOGICAL: None Past medical history to include: Anxiety, COPD, hyperlipidemia, diabetes, hypertension Social history: This is his brother. Stop smoking 7 years ago, smoked for about 60 years was smoking up to 3 packs a day. 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 Physical examination: VITAL SIGNS: 98.1, 94, 18, 112/52, 99% on 5 L GENERAL: BMI 26.6, laying in bed, short of breath., Tattoos EYES: Pupils equal. Conjunctiva normal. HEENT: External appearance of nose and ears normal, oral cavity grossly normal. NECK: JVD not raised; masses not palpable. HEART: First and second heart sounds are normal; no edema. LUNGS:[ Respiratory rate increased diminished breath sounds prolonged expiration, not able to speak in full sentences. ABDOMEN: Soft, nontender, liver spleen not palpable, no masses palpable. PSYCH: Alert and oriented x3; mood and affect slightly eyesl. MUSCULOSKELETAL:No Clubbing/cyanosis;muscles-grossly intact, evidence of OA NEUROLOGICAL: Cranial nerves grossly intact; no facial asymmetry, power and sensation grossly intact. LYMPHATICS: No lymph nodes palpable in the axilla and neck INVESTIGATIONS, reviewed in the clinical context: WBC 10.9 hemoglobin 13.2 platelets 240 sodium 139 potassium 4.6 bicarbonate 41 BUN 22 creatinine 0.58 lactic acid 3.8 Troponin I less than 0.012 COVID 19/influenza type A/influenza type B: Not detected EKG tracing personally reviewed by me: Normal sinus rhythm. Chest x-ray film personally reviewed by me-hyperinflation, prominent pulmonary artery Assessment and plan: -Acute exacerbation of severe steroid-dependent COPD in a previous smoker DuoNeb every 4, IV Solu-Medrol, nebulized Perforomist and nebulized steroids. -Acute on chronic hypoxic and hypercapnic type II respiratory failure from COPD Baseline oxygen is 3 L, currently on 5 L -Anxiety not otherwise specified Xanax when necessary -Hyperlipidemia Lipitor -Diabetes mellitus type 2, chronically on oral hypoglycemic Follow Accu-Cheks with sliding scale -Essential hypertension Cardizem IV Solu-Medrol. DuoNeb. Nebulized Perforomist and Pulmicort. Resume home medi cations. Follow Accu-Cheks. DVT prophylaxis. Care was discussed with the patient. Questions answered. Consult pulmonary. Given the complexity and severity of patient's condition expect the patient to be in the hospital at least for 2 overnights Past Medical History Past Medical History: COPD Additional Past Medical History / Comment(s): pneumonia History of Any Multi-Drug Resistant Organisms: MRSA Date of last positivie culture/infection: 2011 MDRO Source:: sputum Past Surgical History: Orthopedic Surgery Additional Past Surgical History / Comment(s): trachesotmy 2012 Past Anesthesia/Blood Transfusion Reactions: No Reported Reaction Past Psychological History: Anxiety, Depression Past Alcohol Use History: None Reported Past Drug Use History: None Reported - Past Family History Father Family Medical History: Osteoarthritis (OA) Mother Family Medical History: Congestive Heart Failure (CHF), Diabetes Mellitus, Osteoarthritis (OA) Brother(s) Family Medical History: Myocardial Infarction ([place]) Additional Family Medical History / Comment(s): One brother of drowning, One of suicide, One of a heart attack at the age of 52 or 54 Medications and Allergies Home Medications Medication Instructions Recorded Confirmed Type ALPRAZolam [Xanax] 0.5 mg PO BID PRN 02/06/19 09/20/22 History Albuterol Inhaler [Ventolin Hfa 2 puff INHALATION RT-Q6H PRN 02/06/19 09/20/22 History Inhaler] Atorvastatin [Lipitor] 20 mg PO HS 02/06/19 09/20/22 History Diltiazem Cd [Cardizem CD] 120 mg PO DAILY 02/06/19 09/20/22 History Fluticasone Nasal [place] [Flonase 1 spr EA NOSTRIL DAILY 02/06/19 09/20/22 Hi story Nasal [place]] Ipratropium-Albuterol Nebulize 3 ml INHALATION RT-Q4H PRN 02/06/19 09/20/22 History [Duoneb 0.5 mg-3 mg/3 ml Soln] ALPRAZolam [Xanax] 0.5 mg PO HS 09/20/22 09/20/22 History Azithromycin [Zithromax Z Pack] See Taper PO DIRECTED 09/20/22 09/20/22 History Fluticasone/Umeclidin/Vilanter 1 puff INHALATION RT-DAILY 09/20/22 09/20/22 History [Trelegy Ellipta 100-62.5-25] metFORMIN HCL ER [Glucophage XR] 500 mg PO BID-W/MEALS 09/20/22 09/20/22 History predniSONE 5 mg PO HS 09/20/22 09/20/22 History predniSONE 10 mg PO DAILY 09/20/22 09/20/22 History Allergies Allergy/AdvReac Type Severity Reaction Status Date / Time No Known Allergies Allergy Verified 09/20/22 17:06 Physical Exam Vitals: Vital Signs Temp Pulse Resp BP Pulse Ox 09/20/22 18:01 78 18 116/61 98 09/20/22 15:38 92 09/20/22 15:32 92 09/20/22 14:00 22 09/20/22 13:55 98.1 F 94 18 112/52 99 Intake and Output 09/20/22 09/20/22 09/20/22 06:59 14:59 22:59 Other: Weight 77.111 kg Results CBC & Chem 7: 09/20/22 14:44 09/20/22 14:44 Labs: Abnormal Lab Results - Last 24 Hours (Table) 09/20/22 09/20/22 09/20/22 Range/Units 14:44 14:44 14:44 WBC 10.9 H (3.8-10.6) k/uL MCHC 30.9 L (31.0-37.0) g/dL Neutrophils # 9.5 H (1.3-7.7) k/uL APTT 21.0 L (22.0-30.0) sec Chloride 90 L (98-107) mmol/L Carbon Dioxide 41 H* (22-30) mmol/L BUN 22 H (9-20) mg/dL Creatinine 0.58 L (0.66-1.25) mg/dL Glucose 371 H (74-99) mg/dL Plasma Lactic Acid Issac (0.7-2.0) mmol/L Total Protein 6.2 L (6.3-8.2) g/dL 09/20/22 Range/Units 14:58 WBC (3.8-10.6) k/uL MCHC (31.0-37.0) g/dL Neutrophils # (1.3-7.7) k/uL APTT (22.0-30.0) sec Chloride (98-107) mmol/L Carbon Dioxide (22-30) mmol/L BUN (9-20) mg/dL Creatinine (0.66-1.25) mg/dL Glucose (74-99) mg/dL Plasma Lactic Acid Issac 3.8 H* (0.7-2.0) mmol/L Total Protein (6.3-8.2) g/dL
[2022-09-20 18:12] LABS: Glucose,Whole Blood 255 mg/dL (70-110)
[2022-09-20] MEDS: INSULIN ASPART (NovoLOG) 100 UNIT/ML VIAL SQ SCH (18:16)
[2022-09-20 19:46] LABS: Glucose,Whole Blood 247 mg/dL (70-110)
[2022-09-20] MEDS: BUDESONIDE 1 MG/2 ML NEBU INHALATION SCH (20:05)
[2022-09-20] MEDS: FORMOTEROL FUMARATE 20 MCG/2 ML NEBU INHALATION SCH (20:06)
[2022-09-20] MEDS: IPRATROPIUM-ALBUTEROL 3 ML NEB INHALATION SCH (20:07)
[2022-09-20] MEDS: ALPRAZolam 0.5 MG TAB PO SCH (20:23)
[2022-09-20] MEDS: ATORVASTATIN 20 MG TAB PO SCH (20:23)
[2022-09-20 22:26] LABS: VBG PH 7.36 (7.31-7.41)
[2022-09-20] MEDS: methylPREDNISolone SOD SUCCI 40 MG/ML 1 ML VIAL IV SCH (23:06)
[2022-09-20] MEDS: ENOXAPARIN 40 MG/0.4 ML SYRINGE SQ SCH (23:22)
[2022-09-21] MEDS: IPRATROPIUM-ALBUTEROL 3 ML NEB INHALATION SCH ×7 (03:38→23:42)
[2022-09-21 06:09] LABS: Glucose,Whole Blood 208 mg/dL (70-110)
[2022-09-21] MEDS: INSULIN ASPART (NovoLOG) 100 UNIT/ML VIAL SQ SCH ×3 (06:34→18:01)
[2022-09-21] MEDS: metFORMIN 500 MG TAB PO SCH ×2 (06:34→18:00)
[2022-09-21] MEDS: methylPREDNISolone SOD SUCCI 40 MG/ML 1 ML VIAL IV SCH (08:46)
[2022-09-21] MEDS: ENOXAPARIN 40 MG/0.4 ML SYRINGE SQ SCH (08:47)
[2022-09-21] MEDS: DILTIAZEM CD 120 MG CAP.ER.24H PO SCH (08:47)
[2022-09-21] MEDS: BUDESONIDE 1 MG/2 ML NEBU INHALATION SCH ×2 (08:48→20:36)
[2022-09-21] MEDS: FORMOTEROL FUMARATE 20 MCG/2 ML NEBU INHALATION SCH ×2 (08:48→20:36)
--- NOTE | 2022-09-21 11:30 | P.PN ---
Progress Note - Text Progress Note Date: 09/21/22 Chief Complaint: Short of breath This is a pleasant 77-year-old patient who follows with Dr. 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 Patient able to get around the house without any shaw pport. Patient presents with 4 days of worsening shortness of breath. Slight cough which is quite his baseline. Little phlegm if any. No fever no chills. No edema. Appetite is fair. Tired. Rundown. Admitted with COPD exacerbation. Admitted with COPD exacerbation and acute hypoxic/hypercapnic respiratory failure. 09/21/2022: Sitting with agents bed. Remains short of breath. Coughing or sp utum. Oral intake fair. Awaiting input from pulmonary. Add theophylline 300 mg daily at bedtime Active Medications Acetaminophen (Acetaminophen Tab 325 Mg Tab) 650 mg PO Q6HR PRN PRN Reason: Mild Pain or Fever > 100.5 Albuterol/Ipratropium (Ipratropium-Albuterol 3 Ml Neb) 3 ml INHALATION RT-Q4H [facility] Last Admin: 09/21/22 08:48 Dose: 3 ml Alprazolam (Alprazolam 0.5 Mg Tab) 0.5 mg PO BID PRN PRN Reason: Anxiety Alprazolam (Alprazolam 0.5 Mg Tab) 0.5 mg PO HS [facility] Last Admin: 09/20/22 20:23 Dose: 0.5 mg Atorvastatin Calcium (Atorvastatin 20 Mg Tab) 20 mg PO HS [facility] Last Admin: 09/20/22 20:23 Dose: 20 mg Budesonide (Budesonide 1 Mg/2 Ml Nebu) 1 mg INHALATION RT-BID [facility] Last Admin: 09/21/22 08:48 Dose: 1 mg Calcium Carbonate/Glycine (Calcium Carbonate 500 Mg Chewable) 1,000 mg PO Q4HR PRN PRN Reason: Dyspepsia Dextrose/Water (Dextrose 50% Syringe 50 Ml) 25 ml IVP PER PROTOCOL PRN; Protocol PRN Reason: Hypoglycemia Dextrose/Water (Dextrose 50% Syringe 50 Ml) 50 ml IVP PER PROTOCOL PRN; Protocol PRN Reason: Hypoglycemia Diltiazem HCl (Diltiazem Cd 120 Mg Cap.Er.24h) 120 mg PO DAILY [facility] Last Admin: 09/21/22 08:47 Dose: 120 mg Enoxaparin Sodium (Enoxaparin 40 Mg/0.4 Ml Syringe) 40 mg SQ DAILY [facility] Last Admin: 09/21/22 08:47 Dose: 40 mg Formoterol Fumarate (Formoterol Fumarate 20 Mcg/2 Ml Nebu) 20 mcg INHALATION RT-BID [facility] Last Admin: 09/21/22 08:48 Dose: 20 mcg Insulin Aspart (Insulin Aspart (Novolog) 100 Unit/Ml Vial) 0 unit SQ AC-TID [facility]; Protocol Last Admin: 09/21/22 06:34 Dose: 4 unit Lactulose (Lactulose 20 Gm/30 Ml Cup) 20 gm PO DAILY PRN PRN Reason: Constipation Metformin HCl (Metformin 500 Mg Tab) 500 mg PO BID-W/MEALS [facility] Last Admin: 09/21/22 06:34 Dose: 500 mg Methylprednisolone Sodium Succinate (Methylprednisolone Sod Succi 40 Mg/Ml 1 Ml Vial) 40 mg IV Q8HR [facility] Last Admin: 09/21/22 08:46 Dose: 40 mg Naloxone HCl (Naloxone 0.4 Mg/Ml 1 Ml Vial) 0.2 mg IV Q2M PRN PRN Reason: Opioid Reversal Ondansetron HCl (Ondansetron 4 Mg/2 Ml Vial) 4 mg IVP Q8HR PRN PRN Reason: Nausea And Vomiting Theophylline (Theophylline 24 Hour 300 Mg Cap.Er.24h) 300 mg PO HS [place] Past medical history to include: Anxiety, COPD, hyperlipidemia, diabetes, hypertension Social history: This is his brother. Stop smoking 7 years ago, smoked for about 60 years was smoking up to 3 packs a day. 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 Physical examination: VITAL SIGNS: Afebrile, 75, 22, 107.57, 97% on 3 L GENERAL: Sitting of the agents bed, leaning, short of breath Tattoos EYES: Pupils equal. Conjunctiva normal. HEENT: External appearance of nose and ears normal, oral cavity grossly normal. NECK: JVD not raised; masses not palpable. HEART: First and second heart sounds are normal; no edema. LUNGS:Respiratory rate increased diminished breath sounds prolonged expiration, ABDOMEN: Soft, nontender, liver spleen not palpable, no masses palpable. PSYCH: Alert and oriented x3; mood and affect slightly eyesl. MUSCULOSKELETAL:No Clubbing/cyanosis;muscles-grossly intact, evidence of OA INVESTIGATIONS, reviewed in the clinical context: Venous gases: PCO2 is 76 bicarbonate 43 pH 7.36 WBC 10.9 hemoglobin 13.2 platelets 240 sodium 139 potassium 4.6 bicarbonate 41 BUN 22 creatinine 0.58 lactic acid 3.8 Troponin I less than 0.012 COVID 19/influenza type A/influenza type B: Not detected EKG tracing personally reviewed by me: Normal sinus rhythm. Chest x-ray film personally reviewed by me-hyperinflation, prominent pulmonary artery Assessment and plan: -Acute exacerbation of severe steroid-dependent COPD in a previous smoker: Slow to respond DuoNeb every 4, IV Solu-Medrol, nebulized Perforomist and nebulized steroids. Had theophylline 300 mg daily at bedtime -Acute on chronic hypoxic and hypercapnic type II respiratory failure from COPD Baseline oxygen is 3 L, -Anxiety not otherwise specified Xanax when necessary -Hyperlipidemia Lipitor -Diabetes mellitus type 2, chronically on oral hypoglycemic, uncontrolled with hyperglycemia secondary to steroids Follow Accu-Cheks with sliding scale. Add Levemir 10 units subcu daily -Essential hypertension Cardizem -Full code IV Solu-Medrol. DuoNeb. Nebulized Perforomist and Pulmicort. Had theophylline. Add Levemir 10 units subcu daily. Awaiting input from pulmonary.
[2022-09-21] MEDS: methylPREDNISolone SOD SUCCI 125 MG/2 ML VIAL IV SCH ×3 (12:34→23:18)
[2022-09-21] MEDS: INSULIN DETEMIR (LEVEMIR) 100 UNIT/ML SYR SQ SCH (12:35)
--- NOTE | 2022-09-21 13:49 | P.CNPUL ---
History of Present Illness Consult date: 09/21/22 Requesting physician: Manjit Lizama Reason for consult: dyspnea, COPD Chief complaint: Shortness of breath, cough, congestion History of present illness: This is a 77-year-old male patient with a history of diabetes mellitus, general anxiety disorder, obesity, previous pseudomonas pneumonias with previous ventilatory dependent respiratory failure requiring tracheostomy and subsequent removal in 2011. He also has severe oxygen dependent chronic obstructive pulmonary disease maintained on home oxygen at 3 L. He is Trelegy, DuoNeb inhalations and albuterol HFA. He is also steroid dependent and is on 5 mg daily. He does have been required transcutaneous fistula with a dressing over his anterior neck. He was a heavy smoker for many years starting at the age of 10. Quit about 10 years ago. He presented to the emergency room with a three- day history of increasing shortness of breath cough or congestion. He had titrated up his oxygen to 5 L without much improvement. His saturations were still in the 80s. Denied any sick contacts. No known exposure to cold or flu. Chest x-ray shows no acute pulmonary process. White count 10.9. Hemoglobin 13.2. Sodium 139. Potassium 4.6. Bicarb 41. BUN 22. Creatinine 0.58. Glucose 247. AST 20. ALT 16. Troponin negative 1. Yao virus not detected. Influenza screen negative. He's been initiated on theophylline, DuoNeb inhalations, Pulmicort and Perforomist inhalations, Solu-Medrol. He is seen today in consultation on the selective care unit. He is currently resting comfortably in bed. Awake and alert in no acute distress. Maintaining O2 saturations in the 90s on 3 L/m per nasal cannula. He's been afebrile. Hemod ynamically stable. Review of Systems REVIEW OF SYSTEMS: CONSTITUTIONAL: Denies any recent significant weight loss or weight gain. EYES: Denies change in vision. EARS, NOSE, MOUTH, THROAT: Denies headaches, denies sore throat. CARDIOVASCULAR: Denies chest pain, palpitations or syncopal episodes. RESPIRATORY: Positive for shortness of breath, cough, congestion no hemoptysis. GASTROINTESTINAL: Denies change in appetite, denies abdominal pain GENITOURINARY: Denies hematuria, denies infections. MUSKULOSKELETAL: Denies pain, denies swelling. INTEGUMENTARY: Denies rash, denies eczema. NEUROLOGICAL: Denies recent memory loss, no recent seizure activity. PSYCHIATRIC: Denies anxiety, denies depression. HEMATOLOGIC/LYMPHATIC: Denies anemia, denies enlarged lymph nodes. Past Medical History Past Medical History: COPD, Diabetes Mellitus Additional Past Medical History / Comment(s): pneumonia History of Any Multi-Drug Resistant Organisms: MRSA Date of last positivie culture/infection: 2011 MDRO Source:: sputum Past Surgical History: Orthopedic Surgery Additional Past Surgical History / Comment(s): trachesotmy 2012 Past Anesthesia/Blood Transfusion Reactions: No Reported Reaction Past Psychological History: Anxiety, Depression Smoking Status: Former smoker Past Alcohol Use History: None Reported Additional Past Alcohol Use History / Comment(s): quit drinking in 2008, was a heavy drinker bottle of vodka daily for 10 years Past Drug Use History: None Reported - Past Family History Father Family Medical History: Osteoarthritis (OA) Mother Family Medical History: Congestive Heart Failure (CHF), Diabetes Mellitus, Osteoarthritis ([place]) Brother(s) Family Medical History: Myocardial Infarction ([place]) Additional Family Medical History / Comment(s): One brother of drowning, One of suicide, One of a heart attack at the age of 52 or 54 Medications and Allergies Home Medications Medication Instructions Recorded Confirmed Type ALPRAZolam [Xanax] 0.5 mg PO BID PRN 02/06/19 09/20/22 History Albuterol Inhaler [Ventolin Hfa 2 puff INHALATION RT-Q6H PRN 02/06/19 09/20/22 History Inhaler] Atorvastatin [Lipitor] 20 mg PO 02/06/19 09/20/22 History Diltiazem Cd [Cardizem CD] 120 mg PO DAILY 02/06/19 09/20/22 History Fluticasone Nasal [place] [Flonase 1 spr EA NOSTRIL DAILY 02/06/19 09/20/22 History Nasal [place]] Ipratropium-Albuterol Nebulize 3 ml INHALATION RT-Q4H PRN 02/06/19 09/20/22 History [Duoneb 0.5 mg-3 mg/3 ml Soln] ALPRAZolam [Xanax] 0.5 mg PO HS 09/20/22 09/20/22 History Azithromycin [Zithromax Z Pack] See Taper PO DIRECTED 09/20/22 09/20/22 History Fluticasone/Umeclidin/Vilanter 1 puff INHALATION RT-DAILY 09/20/22 09/20/22 History [Trelegy Ellipta 100-62.5-25] metFORMIN HCL ER [Glucophage XR] 500 mg PO BID-W/MEALS 09/20/22 09/20/22 History predniSONE 5 mg PO HS 09/20/22 09/20/22 History predniSONE 10 mg PO DAILY 09/20/22 09/20/22 History Allergies Allergy/AdvReac Type Severity Reaction Status Date / Time No Known Allergies Allergy Verified 09/20/22 17:06 Physical Exam Vitals: Vital Signs Temp Pulse Pulse Resp BP BP Pulse Ox 09/21/22 12:29 80 09/21/22 12:16 84 09/21/22 09:07 80 09/21/22 08:58 80 09/21/22 08:48 80 09/21/22 04:00 75 16 107/57 97 09/21/22 00:00 81 18 114/54 96 09/20/22 20:20 92 09/20/22 20:15 17 98 09/20/22 20:14 92 09/20/22 20:13 92 09/20/22 20:05 90 09/20/22 20:00 98.4 F 85 19 113/62 98 09/20/22 18:42 90 18 147/67 97 09/20/22 18:01 78 18 116/61 98 09/20/22 15:38 92 09/20/22 15:32 92 09/20/22 14:00 22 09/20/22 13:55 98.1 F 94 18 112/52 99 Intake and Output 09/20/22 09/21/22 09/21/22 22:59 06:59 14:59 Intake Total 236 Output Total 400 Balance -164 Intake: Oral 236 Output: Urine 400 Other: Voiding Method Urinal # Voids 3 Weight 77.111 kg GENERAL EXAM: Alert, 77-year-old male patient, on 3 L nasal cannula, comfortable in no apparent distress. HEAD: Normocephalic. EYES: Normal reaction of pupils, equal size. NOSE: Clear with pink turbinates. THROAT: No erythema or exudates. NECK: Anterior dressing applied to fistula. No masses, no JVD. CHEST: No chest wall deformity. LUNGS: Equal air entry with bilateral end expiratory wheeze, diminished. CVS: S1 and S2 normal with no audible murmur, regular rhythm. ABDOMEN: No hepatosplenomegaly, normal bowel sounds, no guarding or rigidity. SPINE: No scoliosis or deformity SKIN: No rashes CENTRAL NERVOUS SYSTEM: No focal deficits, tone is normal in all 4 extremities. EXTREMITIES: There is no peripheral edema. No clubbing, no cyanosis. Peripheral pulses are intact. Results - Laboratory Findings CBC and BMP: 09/20/22 14:44 09/20/22 14:44 PT/INR, D-dimer PT 9.7 sec (9.0-12.0) 09/20/22 14:44 INR 0.9 (<1.2) 09/20/22 14:44 Abnormal lab findings: Abnormal Labs 09/20/22 09/20/22 09/20/22 14:44 14:44 14:44 WBC 10.9 H MCHC 30.9 L Neutrophils # 9.5 H APTT 21.0 L VBG pCO2 VBG HCO3 Chloride 90 L Carbon Dioxide 41 H* BUN 22 H Creatinine 0.58 L Glucose 371 H POC Glucose (mg/dL) Plasma Lactic Acid Issac Total Protein 6.2 L 09/20/22 09/20/22 09/20/22 14:58 18:10 18:20 WBC MCHC Neutrophils # APTT VBG pCO2 VBG HCO3 Chloride Carbon Dioxide BUN Creatinine Glucose POC Glucose (mg/dL) 255 H Plasma Lactic Acid Issac 3.8 H* 2.6 H* Total Protein 09/20/22 09/20/22 09/21/22 19:45 21:52 06:06 WBC MCHC Neutrophils # APTT VBG pCO2 76 H* VBG HCO3 43 H Chloride Carbon Dioxide BUN Creatinine Glucose POC Glucose (mg/dL) 247 H 208 H Plasma Lactic Acid Issac Total Protein - Diagnostic Findings Chest x-ray: image reviewed Assessment and Plan Assessment: Acute on chronic hypoxemic respiratory failure secondary to an acute exacerbation of chronic obstructive pulmonary disease. No clear evidence of pneumonia. Severe oxygen dependent chronic obstructive pulmonary disease History of heavy tobacco dependence History of pseudomonas pneumonia requiring mechanical ventilation with inability to wean and subsequent tracheostomy tube placement and removal Acquired tracheal cutaneous fistula History of general anxiety disorder Diabetes mellitus, type II Plan: The patient was seen and evaluated Chest x-ray, labs and medications reviewed Continue DuoNeb inhalations, Pulmicort and Perforomist inhalations Increase IV Solu-Medrol to 60 mg every 6 hours Continue theophylline Titrate the FiO2 as tolerated Lovenox for DVT prophylaxis Increase his activity as tolerated We will continue to follow and make further recommendations based on his clinical status I have personally seen and examined the patient, performed the documentation and the assessment and plan as written. Number of minutes spent on the visit: 20.
[2022-09-21] MEDS: ALPRAZolam 0.5 MG TAB PO PRN (14:47)
[2022-09-21] MEDS ORDERED: VANCOMYCIN IV PER PHARMACY 1 EACH MISC MISCELLANE PRN (15:10)
[2022-09-21 16:11] LABS: African American GFR (CKD) >90 (>60 ml/min/1.73 sqM); Non-African American GFR(CKD) 86 (>60 ml/min/1.73 sqM)
[2022-09-21 16:51] LABS: Glucose,Whole Blood 187 mg/dL (70-110)
[2022-09-21] MEDS: VANCOMYCIN 1,500 MG in SODIUM CHLORIDE 0.9% 500 ML 500 ML IVPB SCH (17:07)
[2022-09-21 20:10] LABS: Glucose,Whole Blood 236 mg/dL (70-110)
[2022-09-21] MEDS: ATORVASTATIN 20 MG TAB PO SCH (20:27)
[2022-09-21] MEDS: ALPRAZolam 0.5 MG TAB PO SCH (20:27)
[2022-09-21] MEDS: THEOPHYLLINE 24 HOUR 300 MG CAP.ER.24H PO SCH (20:27)
[2022-09-22] MEDS: IPRATROPIUM-ALBUTEROL 3 ML NEB INHALATION SCH ×6 (04:00→23:43)
[2022-09-22] MEDS: VANCOMYCIN 1,500 MG in SODIUM CHLORIDE 0.9% 500 ML 500 ML IVPB SCH ×2 (04:11→17:17)
[2022-09-22 06:19] LABS: Glucose,Whole Blood 172 mg/dL (70-110)
[2022-09-22 06:56] LABS: African American GFR (CKD) >90 (>60 ml/min/1.73 sqM); Non-African American GFR(CKD) >90 (>60 ml/min/1.73 sqM)
[2022-09-22] MEDS: INSULIN ASPART (NovoLOG) 100 UNIT/ML VIAL SQ SCH ×3 (07:02→17:17)
[2022-09-22] MEDS: methylPREDNISolone SOD SUCCI 125 MG/2 ML VIAL IV SCH ×3 (07:02→18:43)
[2022-09-22] MEDS: INSULIN DETEMIR (LEVEMIR) 100 UNIT/ML SYR SQ SCH (07:02)
[2022-09-22] MEDS: BUDESONIDE 1 MG/2 ML NEBU INHALATION SCH ×2 (08:30→19:46)
[2022-09-22] MEDS: FORMOTEROL FUMARATE 20 MCG/2 ML NEBU INHALATION SCH ×2 (08:31→19:46)
[2022-09-22] MEDS: DILTIAZEM CD 120 MG CAP.ER.24H PO SCH (09:32)
[2022-09-22] MEDS: ENOXAPARIN 40 MG/0.4 ML SYRINGE SQ SCH (09:32)
[2022-09-22] MEDS: ALPRAZolam 0.5 MG TAB PO PRN (09:32)
[2022-09-22] MEDS: metFORMIN 500 MG TAB PO SCH ×2 (09:32→18:43)
--- NOTE | 2022-09-22 10:14 | P.PN ---
Subjective Progress Note Date: 09/22/22 Principal diagnosis: Shortness of breath. This is a 77-year-old male patient with a history of diabetes mellitus, general anxiety disorder, obesity, previous pseudomonas pneumonias with previous ventilatory dependent respiratory failure requiring tracheostomy and subsequent removal in 2011. He also has severe oxygen dependent chronic obstructive pulmonary disease maintained on home oxygen at 3 L. He is Trelegy, DuoNeb inhalations and albuterol HFA. He is also steroid dependent and is on 5 mg daily. He does have been required transcutaneous fistula with a dressing over his anterior neck. He was a heavy smoker for many years starting at the age of 10. Quit about 10 years ago. He presented to the emergency room with a three- day history of increasing shortness of breath cough or congestion. He had titrated up his oxygen to 5 L without much improvement. His saturations were still in the 80s. Denied any sick contacts. No known exposure to cold or flu. Chest x-ray shows no acute pulmonary process. White count 10.9. Hemoglobin 13.2. Sodium 139. Potassium 4.6. Bicarb 41. BUN 22. Creatinine 0.58. Glucose 247. AST 20. ALT 16. Troponin negative 1. Yao virus not detected. Influenza screen negative. He's been initiated on theophylline, DuoNeb inhalations, Pulmicort and Perforomist inhalations, Solu-Medrol. He is seen today in consultation on the selective care unit. He is currently resting comfortably in bed. Awake and alert in no acute distress. Maintaining O2 saturations in the 90s on 3 L/m per nasal cannula. He's been afebrile. H emodynamically stable. Progress note dated 09/22/2022. The patient is seen today in room 382. We saw the patient yesterday in consultation. He was minute with a diagnosis of COPD exacerbation. He has an extensive history including diabetes, anxiety, obesity, pseudomonas pneumonia, ventilator dependent respiratory failure, tracheostomy, and subsequent decannulation. He also has chronic hypoxemic respiratory failure, and uses home oxygen at 3 L, 16/06. Currently, he is on 4 L of oxygen. He is not receiving any IV fluids. He actually states that he's feeling a bit better today. He was placed on usual medications. No new labs today other than a creatinine 0.64, and a glucose of 172. Blood cultures are positive for coag-negative staph. This is likely a contaminant. Objective - Vital Signs Vital signs: Vital Signs Temp 97.5 F L 09/21/22 20:00 Pulse 76 09/22/22 08:56 Resp 17 09/22/22 04:00 BP 113/62 09/22/22 04:00 Pulse Ox 97 09/22/22 04:00 FiO2 Intake & Output 09/21/22 09/22/22 09/22/22 18:59 06:59 18:59 Intake Total 361 125 Output Total 550 200 275 Balance -189 -200 -150 Intake: Oral 361 125 Output: Urine 550 200 275 Other: Voiding Method Urinal - Exam No acute distress, oriented 3. No audible wheezing, or use of accessory muscles. Nasal O2 noted. HEENT examination is grossly unremarkable. Neck supple. Full range of motion. No adenopathy thyromegaly or neck vein dis tention. Cardiovascular examination reveals regular rhythm rate. S1-S2 normal. No S3 or S4. No discernible murmur noted. Heart rate 76 bpm. Lungs reveal scattered bilateral expiratory wheezes. Breath sounds are equal bilaterally. Breath sounds are severely diminished throughout. No crackles. Abdomen soft bowel sounds are heard. No masses or tenderness. Extremities are intact. No cyanosis or clubbing. Trace edema present. Skin is without rash or lesion. Neurologic examination is brief but nonfocal. - Labs CBC & Chem 7: 09/20/22 14:44 09/22/22 05:37 Labs: Abnormal Lab Results - Last 24 Hours (Table) 09/21/22 09/21/22 09/22/22 Range/Units 16:44 20:08 05:37 Creatinine 0.64 L (0.66-1.25) mg/dL POC Glucose (mg/dL) 187 H 236 H (70-110) mg/dL 09/22/22 Range/Units 06:16 Creatinine (0.66-1.25) mg/dL POC Glucose (mg/dL) 172 H (70-110) mg/dL Microbiology - Last 24 Hours (Table) 09/20/22 15:01 Blood Culture Gram Stain - Preliminary Blood Blood Culture - Preliminary Coagulase Negative Staph 09/20/22 14:44 Blood Culture Gram Stain - Preliminary Blood 09/20/22 15:01 Blood Culture - Final Blood 09/20/22 14:44 Blood Culture - Final Blood Assessment and Plan Assessment: Acute on chronic hypoxemic respiratory failure secondary to an acute exace rbation of chronic obstructive pulmonary disease. No clear evidence of pneumonia. Severe oxygen dependent chronic obstructive pulmonary disease. History of heavy tobacco dependence. History of pseudomonas pneumonia requiring mechanical ventilation with inability to wean and subsequent tracheostomy tube placement and removal. Acquired tracheocutaneous fistula. History of general anxiety disorder. Diabetes mellitus, type II. Plan: Plan dated 09/22/2022. The patient's on 4 L of oxygen. He looks well comfortable. The patient states that he is feeling better. He was placed on albuterol sulfate, and ipratropium bromide, 4 times a day and when necessary. In addition, he is receiving formoterol 20 g, and budesonide 1 mg, twice a day. Also, the patient is on Solu-Medrol, 60 mg IV push, every 6 hours. He also continues on theophylline. We will continue to follow the patient make recommendations along the way. Prognosis is guarded. Labs, x-rays, and medications are all reviewed. Time with Patient: Less than 30
[2022-09-22 11:50] LABS: Glucose,Whole Blood 175 mg/dL (70-110)
--- NOTE | 2022-09-22 11:52 | P.PN ---
Progress Note - Text Progress Note Date: 09/22/22 Chief Complaint: Short of breath This is a pleasant 77-year-old patient who follows with Dr. Valiente as his PCP and Dr. Raymond as his customer service associate. 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 Patient able to get around the house without any shaw pport. Patient presents with 4 days of worsening shortness of breath. Slight cough which is quite his baseline. Little phlegm if any. No fever no chills. No edema. Appetite is fair. Tired. Rundown. Admitted with COPD exacerbation. Admitted with COPD exacerbation and acute hypoxic/hypercapnic respiratory failure. 09/21/2022: Sitting at the edge bed. Remains short of breath. Coughing or sp utum. Oral intake fair. Awaiting input from pulmonary. Add theophylline 300 mg daily at bedtime 09/22/2022: Sitting at the edge of the bed.started on theophylline last night. Breathing Dose of IV Solu-Medrol increased yesterday. better. Some sputum. Oral intake fair. Active Medications Acetaminophen (Acetaminophen Tab 325 Mg Tab) 650 mg PO Q6HR PRN PRN Reason: Mild Pain or Fever > 100.5 Albuterol/Ipratropium (Ipratropium-Albuterol 3 Ml Neb) 3 ml INHALATION RT-Q4H [facility] Last Admin: 09/22/22 08:31 Dose: 3 ml Alprazolam (Alprazolam 0.5 Mg Tab) 0.5 mg PO BID PRN PRN Reason: Anxiety Last Admin: 09/22/22 09:32 Dose: 0.5 mg Alprazolam (Alprazolam 0.5 Mg Tab) 0.5 mg PO [facility] Last Admin: 09/21/22 20:27 Dose: 0.5 mg Atorvastatin Calcium (Atorvastatin 20 Mg Tab) 20 mg PO [facility] Last Admin: 09/21/22 20:27 Dose: 20 mg Budesonide (Budesonide 1 Mg/2 Ml Nebu) 1 mg INHALATION RT-BID [facility] Last Admin: 09/22/22 08:30 Dose: 1 mg Calcium Carbonate/Glycine (Calcium Carbonate 500 Mg Chewable) 1,000 mg PO Q4HR PRN PRN Reason: Dyspepsia Dextrose/Water (Dextrose 50% Syringe 50 Ml) 25 ml IVP PER PROTOCOL PRN; Protocol PRN Reason: Hypoglycemia Dextrose/Water (Dextrose 50% Syringe 50 Ml) 50 ml IVP PER PROTOCOL PRN; Protocol PRN Reason: Hypoglycemia Diltiazem HCl (Diltiazem Cd 120 Mg Cap.Er.24h) 120 mg PO DAILY [facility] Last Admin: 09/22/22 09:32 Dose: 120 mg Enoxaparin Sodium (Enoxaparin 40 Mg/0.4 Ml Syringe) 40 mg SQ DAILY [facility] Last Admin: 09/22/22 09:32 Dose: 40 mg Formoterol Fumarate (Formoterol Fumarate 20 Mcg/2 Ml Nebu) 20 mcg INHALATION RT-BID [facility] Last Admin: 09/22/22 08:31 Dose: 20 mcg Vancomycin HCl 1,500 mg/ (Sodium Chloride) 500 mls @ 167 mls/hr IVPB Q12H [facility] Last Admin: 09/22/22 04:11 Dose: 167 mls/hr Insulin Aspart (Insulin Aspart (Novolog) 100 Unit/Ml Vial) 0 unit SQ AC-TID [facility]; Protocol Last Admin: 09/22/22 07:02 Dose: 2 unit Insulin Detemir (Insulin Detemir (Levemir) 100 Unit/Ml Syr) 10 unit SQ DAILY@0700 [facility] Last Admin: 09/22/22 07:02 Dose: 10 unit Lactulose (Lactulose 20 Gm/30 Ml Cup) 20 gm PO DAILY PRN PRN Reason: Constipation Metformin HCl (Metformin 500 Mg Tab) 500 mg PO BID-W/MEALS [facility] Last Admin: 09/22/22 09:32 Dose: 500 mg Methylprednisolone Sodium Succinate (Methylprednisolone Sod Succi 125 Mg/2 Ml Vial) 60 mg IV Q6HR [facility] Last Admin: 09/22/22 07:02 Dose: 60 mg Naloxone HCl (Naloxone 0.4 Mg/Ml 1 Ml Vial) 0.2 mg IV Q2M PRN PRN Reason: Opioid Reversal Ondansetron HCl (Ondansetron 4 Mg/2 Ml Vial) 4 mg IVP Q8HR PRN PRN Reason: Nausea And Vomiting Theophylline (Theophylline 24 Hour 300 Mg Cap.Er.24h) 300 mg PO HS [facility] Last Admin: 09/21/22 20:27 Dose: 300 mg Past medical history to include: Anxiety, COPD, hyperlipidemia, diabetes, hypertension Social history: This is his brother. Stop smoking 7 years ago, smoked for about 60 years was smoking up to 3 packs a day. 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 Physical examination: VITAL SIGNS: 98, 112, 20, 134/73, 96% on 3 L GENERAL: Sitting at the age of bed, , Tattoos EYES: Pupils equal. Conjunctiva normal. HEENT: External appearance of nose and ears normal, oral cavity grossly normal. NECK: JVD not raised; masses not palpable. HEART: First and second heart sounds are normal; no edema. LUNGS:Respiratory rate increased diminished breath sounds prolonged expiration, ABDOMEN: Soft, nontender, liver spleen not palpable, no masses palpable. PSYCH: Alert and oriented x3; mood and affect slightly anxious MUSCULOSKELETAL:No Clubbing/cyanosis;muscles-grossly intact, evidence of OA INVESTIGATIONS, reviewed in the clinical context: Venous gases: PCO2 is 76 bicarbonate 43 pH 7.36 WBC 10.9 hemoglobin 13.2 platelets 240 sodium 139 potassium 4.6 bicarbonate 41 BUN 22 creatinine 0.58 lactic acid 3.8 Troponin I less than 0.012 COVID 19/influenza type A/influenza type B: Not detected EKG tracing personally reviewed by me: Normal sinus rhythm. Chest x-ray film personally reviewed by me-hyperinflation, prominent pulmonary artery Assessment and plan: -Acute exacerbation of severe steroid-dependent COPD in a previous smoker: Slow to respond DuoNeb every 4, IV [id number] mg every 6, nebulized Perforomist and nebulized steroids. theophylline 300 mg daily at bedtime -Acute on chronic hypoxic and hypercapnic type II respiratory failure from COPD Baseline oxygen is 3 L, -Anxiety not otherwise specified Xanax when necessary -Hyperlipidemia Lipitor -Diabetes mellitus type 2, chronically on oral hypoglycemic, uncontrolled with hyperglycemia secondary to steroids Follow Accu-Cheks with sliding scale. increase Levemir 16 units subcu daily -Essential hypertension Cardizem -Full code IV Solu-Medrol. DuoNeb. Nebulized Perforomist and Pulmicort. Had theophylline. Add Levemir 10 units subcu daily. Awaiting input from pulmonary.
[2022-09-22] MEDS ORDERED: INSULIN DETEMIR (LEVEMIR) 100 UNIT/ML SYR SQ SCH (12:15)
[2022-09-22 16:58] LABS: Glucose,Whole Blood 275 mg/dL (70-110)
[2022-09-22] MEDS: ALPRAZolam 0.5 MG TAB PO SCH (20:17)
[2022-09-22] MEDS: THEOPHYLLINE 24 HOUR 300 MG CAP.ER.24H PO SCH (20:17)
[2022-09-22] MEDS: ATORVASTATIN 20 MG TAB PO SCH (20:17)
[2022-09-22 20:36] LABS: Glucose,Whole Blood 232 mg/dL (70-110)
[2022-09-23] MEDS: methylPREDNISolone SOD SUCCI 125 MG/2 ML VIAL IV SCH ×4 (00:14→19:02)
[2022-09-23] MEDS: IPRATROPIUM-ALBUTEROL 3 ML NEB INHALATION SCH ×6 (03:16→23:26)
[2022-09-23] MEDS: VANCOMYCIN 1,500 MG in SODIUM CHLORIDE 0.9% 500 ML 500 ML IVPB SCH ×2 (03:26→15:32)
[2022-09-23 06:01] LABS: Glucose,Whole Blood 186 mg/dL (70-110)
[2022-09-23] MEDS: metFORMIN 500 MG TAB PO SCH ×2 (07:04→16:55)
[2022-09-23] MEDS: INSULIN ASPART (NovoLOG) 100 UNIT/ML VIAL SQ SCH ×3 (07:04→16:55)
[2022-09-23] MEDS: INSULIN DETEMIR (LEVEMIR) 100 UNIT/ML SYR SQ SCH (07:04)
[2022-09-23 07:58] LABS: Basophils % (A) 0 %; Eosinophils % (A) 0 %; HGB 11.6 gm/dL (13.0-17.5); Hypochromasia Marked; Lymphocytes # (A) 0.6 k/uL (1.0-4.8); Lymphocytes % (A) 4 %; MCH 30.1 pg (25.0-35.0); MCHC 30.6 g/dL (31.0-37.0); MCV 98.2 fL (80.0-100.0); Mean Platelet Volume 8.3; Monocytes # (A) 0.4 k/uL (0-1.0); Monocytes % (A) 3 %; Neutrophils # (A) 11.9 k/uL (1.3-7.7); Neutrophils % (A) 92 %; Platelet Count 275 k/uL (150-450); RBC 3.87 m/uL (4.30-5.90); RDW 12.7 % (11.5-15.5); WBC 12.9 k/uL (3.8-10.6)
[2022-09-23 08:18] LABS: African American GFR (CKD) >90 (>60 ml/min/1.73 sqM); Anion Gap 8 mmol/L; Blood Urea Nitrogen 29 mg/dL (9-20); Calcium 8.5 mg/dL (8.4-10.2); Carbon Dioxide 37 mmol/L (22-30); Chloride 95 mmol/L (98-107); Glucose 186 mg/dL (74-99); Non-African American GFR(CKD) >90 (>60 ml/min/1.73 sqM); Potassium 4.6 mmol/L (3.5-5.1); Sodium 140 mmol/L (137-145)
[2022-09-23] MEDS: BUDESONIDE 1 MG/2 ML NEBU INHALATION SCH ×2 (08:18→20:00)
[2022-09-23] MEDS: FORMOTEROL FUMARATE 20 MCG/2 ML NEBU INHALATION SCH ×2 (08:18→20:00)
[2022-09-23] MEDS: ENOXAPARIN 40 MG/0.4 ML SYRINGE SQ SCH (08:28)
[2022-09-23] MEDS: DILTIAZEM CD 120 MG CAP.ER.24H PO SCH (08:29)
[2022-09-23 08:55] LABS: Glucose,Whole Blood 215 mg/dL (70-110)
[2022-09-23 11:49] LABS: Glucose,Whole Blood 202 mg/dL (70-110)
[2022-09-23] MEDS: ALPRAZolam 0.5 MG TAB PO PRN (12:03)
--- NOTE | 2022-09-23 12:09 | P.PN ---
Subjective Progress Note Date: 09/23/22 This is a 77-year-old male patient with a history of diabetes mellitus, general anxiety disorder, obesity, previous pseudomonas pneumonias with previous ventilatory dependent respiratory failure requiring tracheostomy and subsequent removal in 2011. He also has severe oxygen dependent chronic obstructive pulmonary disease maintained on home oxygen at 3 L. He is Trelegy, DuoNeb inhalations and albuterol HFA. He is also steroid dependent and is on 5 mg daily. He does have been required transcutaneous fistula with a dressing over his anterior neck. He was a heavy smoker for many years starting at the age of 10. Quit about 10 years ago. He presented to the emergency room with a three- day history of increasing shortness of breath cough or congestion. He had titrated up his oxygen to 5 L without much improvement. His saturations were still in the 80s. Denied any sick contacts. No known exposure to cold or flu. Chest x-ray shows no acute pulmonary process. White count 10.9. Hemoglobin 13.2. Sodium 139. Potassium 4.6. Bicarb 41. BUN 22. Creatinine 0.58. Glucose 247. AST 20. ALT 16. Troponin negative 1. Yao virus not detected. Influenza screen negative. He's been initiated on theophylline, DuoNeb inhalations, Pulmicort and Perforomist inhalations, Solu-Medrol. He is seen today in consultation on the selective care unit. He is currently resting comfortably in bed. Awake and alert in no acute distress. Maintaining O2 saturations in the 90s on 3 L/m per nasal cannula. He's been afebrile. Hemodynamically stable. Progress note dated 09/22/2022. The patient is seen today in room 382. We saw the patient yesterday in consultation. He was minute with a diagnosis of COPD exacerbation. He has an extensive history including diabetes, anxiety, obesity, pseudomonas pneumonia, ventilator dependent respiratory failure, tracheostomy, and subsequent decannulation. He also has chronic hypoxemic respiratory failure, and uses home oxygen at 3 L, 16/06. Currently, he is on 4 L of oxygen. He is not receiving any IV fluids. He actually states that he's feeling a bit better today. He was placed on usual medications. No new labs today other than a creatinine 0.64, and a glucose of 172. Blood cultures are positive for coag-negative staph. This is likely a contaminant. On today's evaluation of 09/23/2022, Mauro is anxious. He is worried about a blood infection that he was informed of. This is a coagulase-negative staph. I'm not sure this is a true infection could be a contaminant. He was covered with vancomycin. No leukocytosis. No hemodynamic instability. No fever or chills. He is on bronchodilators and he is also on IV Solu-Medrol. While at home, he is on Trelegy Ellipta one inhalation a day and 5 mg of prednisone as maintenance. His tracheostomy site is showing yellowish mucoid material. He is on 3 L O2 at home. He is back on 3 L. The patient has had previous history of Pseudomonas pneumonia and previous ventilator dependent respiratory failure requiring tracheostomy tube insertion with subsequent removal in 2011. He is maintained also on theophylline and combination with Trelegy Ellipta and 5 mg of prednisone. Objective - Vital Signs Vital signs: Vital Signs Temp 98.0 F 09/23/22 08:25 Pulse 102 H 09/23/22 11:57 Resp 18 09/23/22 09:57 BP 122/56 09/23/22 08:25 Pulse Ox 95 09/23/22 08:25 FiO2 Intake & Output 09/22/22 09/23/22 09/23/22 18:59 06:59 18:59 Intake Total 368 118 Output Total 275 450 Balance 93 -450 118 Intake: Oral 368 118 Output: Urine 275 450 Other: Voiding Method Urinal Urinal # Voids 3 - Exam No acute distress, oriented 3. No audible wheezing, or use of accessory muscles. Nasal O2 noted. HEENT examination is grossly unremarkable. Neck supple. Full range of motion. No adenopathy thyromegaly or neck vein distention. Cardiovascular examination reveals regular rhythm rate. S1-S2 normal. No S3 or S4. No discernible murmur noted. Lungs reveal scattered bilateral expiratory wheezes. Breath sounds are equal bilaterally. Breath sounds are severely diminished throughout. No crackles. Abdomen soft bowel sounds are heard. No masses or tenderness. Extremities are intact. No cyanosis or clubbing. Trace edema present. Skin is without rash or lesion. Neurologic examination is brief but nonfocal. - Labs CBC & Chem 7: 09/23/22 07:21 09/23/22 07:21 Labs: Abnormal Lab Results - Last 24 Hours (Table) 09/21/22 09/22/22 09/22/22 Range/Units 11:54 16:57 20:34 WBC (3.8-10.6) k/uL RBC (4.30-5.90) m/uL Hgb (13.0-17.5) gm/dL Hct (39.0-53.0) % MCHC (31.0-37.0) g/dL Neutrophils # (1.3-7.7) k/uL Lymphocytes # (1.0-4.8) k/uL Chloride (98-107) mmol/L Carbon Dioxide (22-30) mmol/L BUN (9-20) mg/dL Glucose (74-99) mg/dL POC Glucose (mg/dL) 215 H 275 H 232 H (70-110) mg/dL 09/23/22 09/23/22 09/23/22 Range/Units 06:00 07:21 07:21 WBC 12.9 H (3.8-10.6) k/uL RBC 3.87 L (4.30-5.90) m/uL Hgb 11.6 L (13.0-17.5) gm/dL Hct 38.0 L (39.0-53.0) % MCHC 30.6 L (31.0-37.0) g/dL Neutrophils # 11.9 H (1.3-7.7) k/uL Lymphocytes # 0.6 L (1.0-4.8) k/uL Chloride 95 L (98-107) mmol/L Carbon Dioxide 37 H (22-30) mmol/L BUN 29 H (9-20) mg/dL Glucose 186 H (74-99) mg/dL POC Glucose (mg/dL) 186 H (70-110) mg/dL 09/23/22 Range/Units 11:47 WBC (3.8-10.6) k/uL RBC (4.30-5.90) m/uL Hgb (13.0-17.5) gm/dL Hct (39.0-53.0) % MCHC (31.0-37.0) g/dL Neutrophils # (1.3-7.7) k/uL Lymphocytes # (1.0-4.8) k/uL Chloride (98-107) mmol/L Carbon Dioxide (22-30) mmol/L BUN (9-20) mg/dL Glucose (74-99) mg/dL POC Glucose (mg/dL) 202 H (70-110) mg/dL Microbiology - Last 24 Hours (Table) 09/20/22 14:44 Blood Culture Gram Stain - Preliminary Blood Blood Culture - Preliminary Coagulase Negative Staph 09/20/22 15:01 Blood Culture Gram Stain - Preliminary Blood Blood Culture - Preliminary Coagulase Negative Staph Assessment and Plan Plan: Acute on chronic hypoxemic respiratory failure secondary to an acute exacerbation of chronic obstructive pulmonary disease. No clear evidence of pneumonia. Severe oxygen dependent chronic obstructive pulmonary disease. History of heavy tobacco dependence. History of pseudomonas pneumonia requiring mechanical ventilation with inability to wean and subsequent tracheostomy tube placement and removal. Acquired tracheocutaneous fistula. History of general anxiety disorder. Diabetes mellitus, type II. Coagulase-negative staph in the blood, likely a colonizer Plan: Clinically stable Keep the patient on oxygen at 3 L nasal cannula DuoNeb neb blotchiness on the clock Prednisone burst taper at the time of discharge No antibiotic coverage for now He is all medication will include Trelegy Ellipta, theophylline and a digital neb blotchiness on the clock. Is also on 5 mg of prednisone on outpatient basis. May discontinue the vancomycin. This is most not it showed infection this patient. Recommend checking his sputum from the tracheostomy site for cultures
[2022-09-23] MEDS ORDERED: VANCOMYCIN TROUGH DUE 1 EACH MISC MISCELLANE ONE (15:00)
[2022-09-23 16:48] LABS: Glucose,Whole Blood 203 mg/dL (70-110)
--- NOTE | 2022-09-23 19:37 | P.PN ---
Progress Note - Text Progress Note Date: 09/23/22 Chief Complaint: Short of breath This is a pleasant 77-year-old patient who follows with Dr. Valiente as his PCP and Dr. Raymond as his costing analyst. 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 Patient able to get around the house without any shaw pport. Patient presents with 4 days of worsening shortness of breath. Slight cough which is quite his baseline. Little phlegm if any. No fever no chills. No edema. Appetite is fair. Tired. Rundown. Admitted with COPD exacerbation. Admitted with COPD exacerbation and acute hypoxic/hypercapnic respiratory failure. 09/21/2022: Sitting at the edge bed. Remains short of breath. Coughing or sp utum. Oral intake fair. Awaiting input from pulmonary. Add theophylline 300 mg daily at bedtime 09/22/2022: Sitting at the edge of the bed.started on theophylline last night. Breathing Dose of IV Solu-Medrol increased yesterday. better. Some sputum. Oral intake fair. 09/23/2022: Sitting at edge bed. Breathing slowly improving. Better short of breath. On IV Solu-Medrol. Eating well. Active Medications Acetaminophen (Acetaminophen Tab 325 Mg Tab) 650 mg PO Q6HR PRN PRN Reason: Mild Pain or Fever > 100.5 Albuterol/Ipratropium (Ipratropium-Albuterol 3 Ml Neb) 3 ml INHALATION RT-Q4H [facility] Last Admin: 09/23/22 15:36 Dose: 3 ml Alprazolam (Alprazolam 0.5 Mg Tab) 0.5 mg PO BID PRN PRN Reason: Anxiety Last Admin: 09/23/22 12:03 Dose: 0.5 mg Alprazolam (Alprazolam 0.5 Mg Tab) 0.5 mg PO [facility] Last Admin: 09/22/22 20:17 Dose: 0.5 mg Atorvastatin Calcium (Atorvastatin 20 Mg Tab) 20 mg PO [facility] Last Admin: 09/22/22 20:17 Dose: 20 mg Budesonide (Budesonide 1 Mg/2 Ml Nebu) 1 mg INHALATION RT-BID [facility] Last Admin: 09/23/22 08:18 Dose: 1 mg Calcium Carbonate/Glycine (Calcium Carbonate 500 Mg Chewable) 1,000 mg PO Q4HR PRN PRN Reason: Dyspepsia Dextrose/Water (Dextrose 50% Syringe 50 Ml) 25 ml IVP PER PROTOCOL PRN; Protocol PRN Reason: Hypoglycemia Dextrose/Water (Dextrose 50% Syringe 50 Ml) 50 ml IVP PER PROTOCOL PRN; Protocol PRN Reason: Hypoglycemia Diltiazem HCl (Diltiazem Cd 120 Mg Cap.Er.24h) 120 mg PO DAILY [facility] Last Admin: 09/23/22 08:29 Dose: 120 mg Enoxaparin Sodium (Enoxaparin 40 Mg/0.4 Ml Syringe) 40 mg SQ DAILY [facility] Last Admin: 09/23/22 08:28 Dose: 40 mg Formoterol Fumarate (Formoterol Fumarate 20 Mcg/2 Ml Nebu) 20 mcg INHALATION RT-BID [facility] Last Admin: 09/23/22 08:18 Dose: 20 mcg Vancomycin HCl 1,500 mg/ (Sodium Chloride) 500 mls @ 167 mls/hr IVPB Q12H [facility] Last Admin: 09/23/22 15:32 Dose: 167 mls/hr Insulin Aspart (Insulin Aspart (Novolog) 100 Unit/Ml Vial) 0 unit SQ AC-TID [facility]; Protocol Last Admin: 09/23/22 16:55 Dose: 4 unit Insulin Detemir (Insulin Detemir (Levemir) 100 Unit/Ml Syr) 16 unit SQ DAILY@0700 [facility] Last Admin: 09/23/22 07:04 Dose: 16 unit Lactulose (Lactulose 20 Gm/30 Ml Cup) 20 gm PO DAILY PRN PRN Reason: Constipation Metformin HCl (Metformin 500 Mg Tab) 500 mg PO BID-W/MEALS [facility] Last Admin: 09/23/22 16:55 Dose: 500 mg Methylprednisolone Sodium Succinate (Methylprednisolone Sod Succi 125 Mg/2 Ml Vial) 60 mg IV Q6HR [facility] Last Admin: 09/23/22 19:02 Dose: 60 mg Naloxone HCl (Naloxone 0.4 Mg/Ml 1 Ml Vial) 0.2 mg IV Q2M PRN PRN Reason: Opioid Reversal Ondansetron HCl (Ondansetron 4 Mg/2 Ml Vial) 4 mg IVP Q8HR PRN PRN Reason: Nausea And Vomiting Theophylline (Theophylline 24 Hour 300 Mg Cap.Er.24h) 300 mg PO HS [facility] Last Admin: 09/22/22 20:17 Dose: 300 mg Past medical history to include: Anxiety, COPD, hyperlipidemia, diabetes, hypertension Social history: This is his brother. Stop smoking 7 years ago, smoked for about 60 years was smoking up to 3 packs a day. 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 Physical examination: VITAL SIGNS: 98, 92, 18, 1 22 x 56, 95% on 3 L GENERAL: Sitting at the age of bed, , Tattoos EYES: Pupils equal. Conjunctiva normal. HEENT: External appearance of nose and ears normal, oral cavity grossly normal. NECK: JVD not raised; masses not palpable. HEART: First and second heart sounds are normal; no edema. LUNGS:Respiratory rate increased diminished breath sounds ABDOMEN: Soft, nontender, liver spleen not palpable, no masses palpable. PSYCH: Alert and oriented x3; mood and affect slightly anxious MUSCULOSKELETAL:No Clubbing/cyanosis;muscles-grossly intact, evidence of OA INVESTIGATIONS, reviewed in the clinical context: September 23: WBC 12.9 hemoglobin 11.6 potassium 4.6 creatinine 0.67 Venous gases: PCO2 is 76 bicarbonate 43 pH 7.36 WBC 10.9 hemoglobin 13.2 platelets 240 sodium 139 potassium 4.6 bicarbonate 41 BUN 22 creatinine 0.58 lactic acid 3.8 Troponin I less than 0.012 COVID 19/influenza type A/influenza type B: Not detected EKG tracing personally reviewed by me: Normal sinus rhythm. Chest x-ray film personally reviewed by me-hyperinflation, prominent pulmonary artery Assessment and plan: -Acute exacerbation of severe steroid-dependent COPD in a previous smoker: Slow to respond DuoNeb every 4, IV [id number] mg every 6, nebulized Perforomist and nebulized steroids. theophylline 300 mg daily at bedtime -Acute on chronic hypoxic and hypercapnic type II respiratory failure from COPD Baseline oxygen is 3 L, -Anxiety not otherwise specified Xanax when necessary -Hyperlipidemia Lipitor -Diabetes mellitus type 2, chronically on oral hypoglycemic, uncontrolled with hyperglycemia secondary to steroids Follow Accu-Cheks with sliding scale. increase Levemir 16 units subcu daily -Essential hypertension Cardizem -Full code IV Solu-Medrol. DuoNeb. Nebulized Perforomist and Pulmicort. theophylline. Follow with pulmonary. Hopefully discharge in next 1-2 days.
[2022-09-23] MEDS: THEOPHYLLINE 24 HOUR 300 MG CAP.ER.24H PO SCH (21:42)
[2022-09-23] MEDS: ATORVASTATIN 20 MG TAB PO SCH (21:42)
[2022-09-23] MEDS: ALPRAZolam 0.5 MG TAB PO SCH (21:42)
[2022-09-24] MEDS: methylPREDNISolone SOD SUCCI 125 MG/2 ML VIAL IV SCH ×2 (00:18→06:36)
[2022-09-24] MEDS: IPRATROPIUM-ALBUTEROL 3 ML NEB INHALATION SCH ×5 (03:30→20:33)
[2022-09-24] MEDS: VANCOMYCIN 1,500 MG in SODIUM CHLORIDE 0.9% 500 ML 500 ML IVPB SCH ×2 (04:23→16:39)
[2022-09-24 06:18] LABS: Glucose,Whole Blood 156 mg/dL (70-110)
[2022-09-24] MEDS: metFORMIN 500 MG TAB PO SCH ×2 (06:36→16:57)
[2022-09-24] MEDS: INSULIN DETEMIR (LEVEMIR) 100 UNIT/ML SYR SQ SCH (06:36)
[2022-09-24] MEDS: INSULIN ASPART (NovoLOG) 100 UNIT/ML VIAL SQ SCH ×3 (06:37→16:57)
[2022-09-24] MEDS: FORMOTEROL FUMARATE 20 MCG/2 ML NEBU INHALATION SCH ×2 (08:28→20:34)
[2022-09-24] MEDS: BUDESONIDE 1 MG/2 ML NEBU INHALATION SCH ×2 (08:28→20:34)
[2022-09-24] MEDS: DILTIAZEM CD 120 MG CAP.ER.24H PO SCH (09:32)
[2022-09-24] MEDS: ENOXAPARIN 40 MG/0.4 ML SYRINGE SQ SCH (09:32)
[2022-09-24 10:38] LABS: African American GFR (CKD) >90 (>60 ml/min/1.73 sqM); Non-African American GFR(CKD) >90 (>60 ml/min/1.73 sqM)
[2022-09-24 11:41] LABS: Glucose,Whole Blood 195 mg/dL (70-110)
--- NOTE | 2022-09-24 12:01 | P.PN ---
Progress Note - Text Progress Note Date: 09/24/22 Chief Complaint: Short of breath This is a pleasant 77-year-old patient who follows with Dr. 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 Patient able to get around the house without any shaw pport. Patient presents with 4 days of worsening shortness of breath. Slight cough which is quite his baseline. Little phlegm if any. No fever no chills. No edema. Appetite is fair. Tired. Rundown. Admitted with COPD exacerbation. Admitted with COPD exacerbation and acute hypoxic/hypercapnic respiratory failure. 09/21/2022: Sitting at the edge bed. Remains short of breath. Coughing or sp utum. Oral intake fair. Awaiting input from pulmonary. Add theophylline 300 mg daily at bedtime 09/22/2022: Sitting at the edge of the bed.started on theophylline last night. Breathing Dose of IV Solu-Medrol increased yesterday. better. Some sputum. Oral intake fair. 09/23/2022: Sitting at edge bed. Breathing slowly improving. Better short of breath. On IV Solu-Medrol. Eating well. Neck supple first 2021: Breathing better. Less cough. Cutback IV Solu-Medrol to 40 mg every 8. Continue other medications. Discussed with the patient and renal case manager. They'll arrange for transport to go home tomorrow. Active Medications Acetaminophen (Acetaminophen Tab 325 Mg Tab) 650 mg PO Q6HR PRN PRN Reason: Mild Pain or Fever > 100.5 Albuterol/Ipratropium (Ipratropium-Albuterol 3 Ml Neb) 3 ml INHALATION RT-Q4H [facility] Last Admin: 09/24/22 11:47 Dose: 3 ml Alprazolam (Alprazolam 0.5 Mg Tab) 0.5 mg PO BID PRN PRN Reason: Anxiety Last Admin: 09/23/22 12:03 Dose: 0.5 mg Alprazolam (Alprazolam 0.5 Mg Tab) 0.5 mg PO [facility] Last Admin: 09/23/22 21:42 Dose: 0.5 mg Atorvastatin Calcium (Atorvastatin 20 Mg Tab) 20 mg PO [facility] Last Admin: 09/23/22 21:42 Dose: 20 mg Budesonide (Budesonide 1 Mg/2 Ml Nebu) 1 mg INHALATION RT-BID [facility] Last Admin: 09/24/22 08:28 Dose: 1 mg Calcium Carbonate/Glycine (Calcium Carbonate 500 Mg Chewable) 1,000 mg PO Q4HR PRN PRN Reason: Dyspepsia Dextrose/Water (Dextrose 50% Syringe 50 Ml) 25 ml IVP PER PROTOCOL PRN; Protocol PRN Reason: Hypoglycemia Dextrose/Water (Dextrose 50% Syringe 50 Ml) 50 ml IVP PER PROTOCOL PRN; Protocol PRN Reason: Hypoglycemia Diltiazem HCl (Diltiazem Cd 120 Mg Cap.Er.24h) 120 mg PO DAILY [facility] Last Admin: 09/24/22 09:32 Dose: 120 mg Enoxaparin Sodium (Enoxaparin 40 Mg/0.4 Ml Syringe) 40 mg SQ DAILY [facility] Last Admin: 09/24/22 09:32 Dose: 40 mg Formoterol Fumarate (Formoterol Fumarate 20 Mcg/2 Ml Nebu) 20 mcg INHALATION RT-BID [facility] Last Admin: 09/24/22 08:28 Dose: 20 mcg Vancomycin HCl 1,500 mg/ (Sodium Chloride) 500 mls @ 167 mls/hr IVPB Q12H [facility] Last Admin: 09/24/22 04:23 Dose: 167 mls/hr Insulin Aspart (Insulin Aspart (Novolog) 100 Unit/Ml Vial) 0 unit SQ AC-TID [facility]; Protocol Last Admin: 09/24/22 06:37 Dose: 2 unit Insulin Detemir (Insulin Detemir (Levemir) 100 Unit/Ml Syr) 16 unit SQ DAILY@0700 [facility] Last Admin: 09/24/22 06:36 Dose: 16 unit Lactulose (Lactulose 20 Gm/30 Ml Cup) 20 gm PO DAILY PRN PRN Reason: Constipation Metformin HCl (Metformin 500 Mg Tab) 500 mg PO BID-W/MEALS [facility] Last Admin: 09/24/22 06:36 Dose: 500 mg Methylprednisolone Sodium Succinate (Methylprednisolone Sod Succi 40 Mg/Ml 1 Ml Vial) 40 mg IV Q8HR [facility] Miscellaneous Information (Vancomycin Trough Due 1 Each Misc) 0 each MISCELLANE DIRECTED ONE Stop: 09/25/22 15:01 Naloxone HCl (Naloxone 0.4 Mg/Ml 1 Ml Vial) 0.2 mg IV Q2M PRN PRN Reason: Opioid Reversal Ondansetron HCl (Ondansetron 4 Mg/2 Ml Vial) 4 mg IVP Q8HR PRN PRN Reason: Nausea And Vomiting Theophylline (Theophylline 24 Hour 300 Mg Cap.Er.24h) 300 mg PO HS [facility] Last Admin: 09/23/22 21:42 Dose: 300 mg Past medical history to include: Anxiety, COPD, hyperlipidemia, diabetes, hypertension Social history: This is his brother. Stop smoking 7 years ago, smoked for about 60 years was smoking up to 3 packs a day. 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 Physical examination: VITAL SIGNS: 97.1, 93, 15, 1 28 x 60, 93 was sent on 3 L GENERAL: Reclining in bed, , Tattoos EYES: Pupils equal. Conjunctiva normal. HEENT: External appearance of nose and ears normal, oral cavity grossly normal. NECK: JVD not raised; masses not palpable. HEART: First and second heart sounds are normal; no edema. LUNGS:Respiratory rate increased diminished breath sounds ABDOMEN: Soft, nontender, liver spleen not palpable, no masses palpable. PSYCH: Alert and oriented x3; mood and affect slightly anxious MUSCULOSKELETAL:No Clubbing/cyanosis;muscles-grossly intact, evidence of OA INVESTIGATIONS, reviewed in the clinical context: September 23: WBC 12.9 hemoglobin 11.6 potassium 4.6 creatinine 0.67 Venous gases: PCO2 is 76 bicarbonate 43 pH 7.36 WBC 10.9 hemoglobin 13.2 platelets 240 sodium 139 potassium 4.6 bicarbonate 41 BUN 22 creatinine 0.58 lactic acid 3.8 Troponin I less than 0.012 COVID 19/influenza type A/influenza type B: Not detected EKG tracing personally reviewed by me: Normal sinus rhythm. Chest x-ray film personally reviewed by me-hyperinflation, prominent pulmonary artery Assessment and plan: -Acute exacerbation of severe steroid-dependent COPD in a previous smoker: Improving DuoNeb every 4, IV Solu-Medrol, decreased to 40 mg every 8, nebulized Perforomist and nebulized steroids. theophylline 300 mg daily at bedtime -Acute on chronic hypoxic and hypercapnic type II respiratory failure from COPD Baseline oxygen is 3 L, -Anxiety not otherwise specified Xanax when necessary -Hyperlipidemia Lipitor -Diabetes mellitus type 2, chronically on oral hypoglycemic, uncontrolled with hyperglycemia secondary to steroids Follow Accu-Cheks with sliding scale. increase Levemir 16 units subcu daily -Essential hypertension Cardizem -Full code Cutback dose of IV Solu-Medrol. Other medications to continue. Discussed with patient renal case manager. Arrange for transport home tomorrow.
[2022-09-24] MEDS: ALPRAZolam 0.5 MG TAB PO PRN (12:34)
--- NOTE | 2022-09-24 12:44 | P.PN ---
Subjective Progress Note Date: 09/24/22 This is a 77-year-old male patient with a history of diabetes mellitus, general anxiety disorder, obesity, previous pseudomonas pneumonias with previous ventilatory dependent respiratory failure requiring tracheostomy and subsequent removal in 2011. He also has severe oxygen dependent chronic obstructive pulmonary disease maintained on home oxygen at 3 L. He is Trelegy, DuoNeb inhalations and albuterol HFA. He is also steroid dependent and is on 5 mg daily. He does have been required transcutaneous fistula with a dressing over his anterior neck. He was a heavy smoker for many years starting at the age of 10. Quit about 10 years ago. He presented to the emergency room with a three- day history of increasing shortness of breath cough or congestion. He had titrated up his oxygen to 5 L without much improvement. His saturations were still in the 80s. Denied any sick contacts. No known exposure to cold or flu. Chest x-ray shows no acute pulmonary process. White count 10.9. Hemoglobin 13.2. Sodium 139. Potassium 4.6. Bicarb 41. BUN 22. Creatinine 0.58. Glucose 247. AST 20. ALT 16. Troponin negative 1. Yao virus not detected. Influenza screen negative. He's been initiated on theophylline, DuoNeb inhalations, Pulmicort and Perforomist inhalations, Solu-Medrol. He is seen today in consultation on the selective care unit. He is currently resting comfortably in bed. Awake and alert in no acute distress. Maintaining O2 saturations in the 90s on 3 L/m per nasal cannula. He's been afebrile. Hemodynamically stable. Progress note dated 09/22/2022. The patient is seen today in room 382. We saw the patient yesterday in consultation. He was minute with a diagnosis of COPD exacerbation. He has an extensive history including diabetes, anxiety, obesity, pseudomonas pneumonia, ventilator dependent respiratory failure, tracheostomy, and subsequent decannulation. He also has chronic hypoxemic respiratory failure, and uses home oxygen at 3 L, 16/06. Currently, he is on 4 L of oxygen. He is not receiving any IV fluids. He actually states that he's feeling a bit better today. He was placed on usual medications. No new labs today other than a creatinine 0.64, and a glucose of 172. Blood cultures are positive for coag-negative staph. This is likely a contaminant. On today's evaluation of 09/23/2022, Mauro is anxious. He is worried about a blood infection that he was informed of. This is a coagulase-negative staph. I'm not sure this is a true infection could be a contaminant. He was covered with vancomycin. No leukocytosis. No hemodynamic instability. No fever or chills. He is on bronchodilators and he is also on IV Solu-Medrol. While at home, he is on Trelegy Ellipta one inhalation a day and 5 mg of prednisone as maintenance. His tracheostomy site is showing yellowish mucoid material. He is on 3 L O2 at home. He is back on 3 L. The patient has had previous history of Pseudomonas pneumonia and previous ventilator dependent respiratory failure requiring tracheostomy tube insertion with subsequent removal in 2011. He is maintained also on theophylline and combination with Trelegy Ellipta and 5 mg of prednisone. 09/24/2022, the patient is less anxious and he is feeling somewhat better. He has his tracheostomy fistula adequately dressed and there is no active drainage. We cultured in yesterday and the cultures are still pending for now. No fever. No chills. Remains on IV Solu-Medrol. He has been infected with Pseudomonas in the past. He remains on 3 L O2 with a saturation of 95%. His temperature 97.0. No new labs are available from today. His creatinine is at 0.5. At the same time, he remains on vancomycin and I would leave the final decision on this staphylococcal treatment to infectious disease. This may be as well as a contaminant. He is not looking toxic at all. The patient is on broncho dilators. He remains on IV Solu-Medrol and the dose has been tapered down to 40 mg every 8 hours. Objective - Vital Signs Vital signs: Vital Signs Temp 97.0 F L 09/24/22 12:29 Pulse 98 09/24/22 12:29 Resp 15 09/24/22 12:29 BP 141/62 09/24/22 12:29 Pulse Ox 94 L 09/24/22 12:29 FiO2 Intake & Output 09/23/22 09/24/22 09/24/22 18:59 06:59 18:59 Intake Total 118 Output Total 475 300 Balance 118 -475 -300 Intake: Oral 118 Output: Urine 475 300 Other: Voiding Method Urinal Urinal Urinal - Exam No acute distress, oriented 3. No audible wheezing, or use of accessory muscles. Nasal O2 noted. HEENT examination is grossly unremarkable. Neck supple. Full range of motion. No adenopathy thyromegaly or neck vein distention. Cardiovascular examination reveals regular rhythm rate. S1-S2 normal. No S3 or S4. No discernible murmur noted. Lungs reveal scattered bilateral expiratory wheezes. Breath sounds are equal bilaterally. Breath sounds are severely diminished throughout. No crackles. Abdomen soft bowel sounds are heard. No masses or tenderness. Extremities are intact. No cyanosis or clubbing. Trace edema present. Skin is without rash or lesion. Neurologic examination is brief but nonfocal. - Labs CBC & Chem 7: 09/23/22 07:21 09/24/22 09:27 Labs: Abnormal Lab Results - Last 24 Hours (Table) 09/23/22 09/24/22 09/24/22 Range/Units 16:46 06:16 09:27 Creatinine 0.56 L (0.66-1.25) mg/dL POC Glucose (mg/dL) 203 H 156 H (70-110) mg/dL 09/24/22 Range/Units 11:39 Creatinine (0.66-1.25) mg/dL POC Glucose (mg/dL) 195 H (70-110) mg/dL Microbiology - Last 24 Hours (Table) 09/23/22 20:36 Gram Stain - Preliminary Sputum Sputum Culture - Preliminary 09/20/22 15:01 Blood Culture Gram Stain - Preliminary Blood Blood Culture - Preliminary Staphylococcus auricularis 09/22/22 12:09 Blood Culture - Preliminary Blood No Growth after 24 hours 09/20/22 14:44 Blood Culture Gram Stain - Final Blood Blood Culture - Final Staphylococcus auricularis Assessment and Plan Plan: Acute on chronic hypoxemic respiratory failure secondary to an acute exacerbation of chronic obstructive pulmonary disease. No clear evidence of pneumonia. Awaiting final sputum samples and will decide on any further treatment with antibiotics accordingly. Severe oxygen dependent chronic obstructive pulmonary disease. History of heavy tobacco dependence. History of pseudomonas pneumonia requiring mechanical ventilation with inability to wean and subsequent tracheostomy tube placement and removal. Acquired tracheocutaneous fistula. History of general anxiety disorder. Diabetes mellitus, type II. Coagulase-negative staph in the blood, likely a colonizer, final cultures are not to be Staphylococcus auricularis Plan: Clinically stable Keep the patient on oxygen at 3 L nasal cannula DuoNeb neb on the clock Prednisone burst taper at the time of discharge my Solu-Medrol was dropped down to 40 mg every 8 hours No antibiotic coverage for now He is all medication will include Trelegy Ellipta, theophylline and a DuoNeb nebulizer treatments around the clock. Is also on 5 mg of prednisone on outpatient basis. May discontinue the vancomycin.
[2022-09-24] MEDS: methylPREDNISolone SOD SUCCI 40 MG/ML 1 ML VIAL IV SCH (16:38)
[2022-09-24 16:40] LABS: Glucose,Whole Blood 167 mg/dL (70-110)
[2022-09-24 20:19] LABS: Glucose,Whole Blood 192 mg/dL (70-110)
[2022-09-24] MEDS: ALPRAZolam 0.5 MG TAB PO SCH (20:35)
[2022-09-24] MEDS: ATORVASTATIN 20 MG TAB PO SCH (20:35)
[2022-09-24] MEDS: THEOPHYLLINE 24 HOUR 300 MG CAP.ER.24H PO SCH (20:35)
[2022-09-25] MEDS: methylPREDNISolone SOD SUCCI 40 MG/ML 1 ML VIAL IV SCH ×2 (00:32→08:00)
[2022-09-25] MEDS: IPRATROPIUM-ALBUTEROL 3 ML NEB INHALATION SCH ×6 (00:33→19:21)
[2022-09-25] MEDS: VANCOMYCIN 1,500 MG in SODIUM CHLORIDE 0.9% 500 ML 500 ML IVPB SCH ×2 (04:32→16:50)
[2022-09-25 06:13] LABS: Glucose,Whole Blood 183 mg/dL (70-110)
[2022-09-25] MEDS: INSULIN ASPART (NovoLOG) 100 UNIT/ML VIAL SQ SCH ×3 (06:42→16:49)
[2022-09-25] MEDS: INSULIN DETEMIR (LEVEMIR) 100 UNIT/ML SYR SQ SCH (06:42)
[2022-09-25] MEDS: metFORMIN 500 MG TAB PO SCH ×2 (06:42→16:49)
[2022-09-25] MEDS: DILTIAZEM CD 120 MG CAP.ER.24H PO SCH (08:01)
[2022-09-25] MEDS: ENOXAPARIN 40 MG/0.4 ML SYRINGE SQ SCH (08:01)
[2022-09-25] MEDS: BUDESONIDE 1 MG/2 ML NEBU INHALATION SCH ×2 (08:59→19:21)
[2022-09-25] MEDS: FORMOTEROL FUMARATE 20 MCG/2 ML NEBU INHALATION SCH ×2 (09:00→19:21)
--- NOTE | 2022-09-25 11:16 | P.PN ---
Subjective Progress Note Date: 09/25/22 This is a 77-year-old male patient with a history of diabetes mellitus, general anxiety disorder, obesity, previous pseudomonas pneumonias with previous ventilatory dependent respiratory failure requiring tracheostomy and subsequent removal in 2011. He also has severe oxygen dependent chronic obstructive pulmonary disease maintained on home oxygen at 3 L. He is Trelegy, DuoNeb inhalations and albuterol HFA. He is also steroid dependent and is on 5 mg daily. He does have been required transcutaneous fistula with a dressing over his anterior neck. He was a heavy smoker for many years starting at the age of 10. Quit about 10 years ago. He presented to the emergency room with a three- day history of increasing shortness of breath cough or congestion. He had titrated up his oxygen to 5 L without much improvement. His saturations were still in the 80s. Denied any sick contacts. No known exposure to cold or flu. Chest x-ray shows no acute pulmonary process. White count 10.9. Hemoglobin 13.2. Sodium 139. Potassium 4.6. Bicarb 41. BUN 22. Creatinine 0.58. Glucose 247. AST 20. ALT 16. Troponin negative 1. Yao virus not detected. Influenza screen negative. He's been initiated on theophylline, DuoNeb inhalations, Pulmicort and Perforomist inhalations, Solu-Medrol. He is seen today in consultation on the selective care unit. He is currently resting comfortably in bed. Awake and alert in no acute distress. Maintaining O2 saturations in the 90s on 3 L/m per nasal cannula. He's been afebrile. Hemodynamically stable. Progress note dated 09/22/2022. The patient is seen today in room 382. We saw the patient yesterday in consultation. He was minute with a diagnosis of COPD exacerbation. He has an extensive history including diabetes, anxiety, obesity, pseudomonas pneumonia, ventilator dependent respiratory failure, tracheostomy, and subsequent decannulation. He also has chronic hypoxemic respiratory failure, and uses home oxygen at 3 L, 16/06. Currently, he is on 4 L of oxygen. He is not receiving any IV fluids. He actually states that he's feeling a bit better today. He was placed on usual medications. No new labs today other than a creatinine 0.64, and a glucose of 172. Blood cultures are positive for coag-negative staph. This is likely a contaminant. On today's evaluation of 09/23/2022, Mauro is anxious. He is worried about a blood infection that he was informed of. This is a coagulase-negative staph. I'm not sure this is a true infection could be a contaminant. He was covered with vancomycin. No leukocytosis. No hemodynamic instability. No fever or chills. He is on bronchodilators and he is also on IV Solu-Medrol. While at home, he is on Trelegy Ellipta one inhalation a day and 5 mg of prednisone as maintenance. His tracheostomy site is showing yellowish mucoid material. He is on 3 L O2 at home. He is back on 3 L. The patient has had previous history of Pseudomonas pneumonia and previous ventilator dependent respiratory failure requiring tracheostomy tube insertion with subsequent removal in 2011. He is maintained also on theophylline and combination with Trelegy Ellipta and 5 mg of prednisone. 09/24/2022, the patient is less anxious and he is feeling somewhat better. He has his tracheostomy fistula adequately dressed and there is no active drainage. We cultured in yesterday and the cultures are still pending for now. No fever. No chills. Remains on IV Solu-Medrol. He has been infected with Pseudomonas in the past. He remains on 3 L O2 with a saturation of 95%. His temperature 97.0. No new labs are available from today. His creatinine is at 0.5. At the same time, he remains on vancomycin and I would leave the final decision on this staphylococcal treatment to infectious disease. This may be as well as a contaminant. He is not looking toxic at all. The patient is on broncho dilators. He remains on IV Solu-Medrol and the dose has been tapered down to 40 mg every 8 hours. 09/25/2022, clinically the patient is stable. Follow-up blood cultures have been negative. No major respiratory distress. Sputum cultures still pending. He remains on 3 L O2 nasal cannula. He remains on bronchodilators and IV Solu- Medrol and is currently on 40 mg every 8 hours. His review blood cultures have been negative. Objective - Vital Signs Vital signs: Vital Signs Temp 97.8 F 09/25/22 07:56 Pulse 99 09/25/22 09:21 Resp 18 09/25/22 09:21 BP 129/62 11/02/22 07:56 Pulse Ox 95 09/25/22 09:02 FiO2 Intake & Output 09/24/22 09/25/22 09/25/22 18:59 06:59 18:59 Output Total 300 250 Balance -300 -250 Output: Urine 300 250 Other: Voiding Method Urinal Urinal Urinal - Exam No acute distress, oriented 3. No audible wheezing, or use of accessory muscles. Nasal O2 noted. HEENT examination is grossly unremarkable. Neck supple. Full range of motion. No adenopathy thyromegaly or neck vein distention. Cardiovascular examination reveals regular rhythm rate. S1-S2 normal. No S3 or S4. No discernible murmur noted. Lungs reveal scattered bilateral expiratory wheezes. Breath sounds are equal bilaterally. Breath sounds are severely diminished throughout. No crackles. Abdomen soft bowel sounds are heard. No masses or tenderness. Extremities are intact. No cyanosis or clubbing. Trace edema present. Skin is without rash or lesion. Neurologic examination is brief but nonfocal. - Labs CBC & Chem 7: 09/23/22 07:21 09/24/22 09:27 Labs: Abnormal Lab Results - Last 24 Hours (Table) 09/24/22 09/24/22 09/24/22 Range/Units 11:39 16:38 20:17 POC Glucose (mg/dL) 195 H 167 H 192 H (70-110) mg/dL 09/25/22 Range/Units 06:12 POC Glucose (mg/dL) 183 H (70-110) mg/dL Microbiology - Last 24 Hours (Table) 09/20/22 15:01 Blood Culture Gram Stain - Final Blood Blood Culture - Final Staphylococcus auricularis 09/23/22 14:47 Blood Culture - Preliminary Blood No Growth after 24 hours 09/23/22 14:47 Blood Culture - Preliminary Blood No Growth after 24 hours 09/22/22 12:09 Blood Culture - Preliminary Blood No Growth after 48 hours 09/23/22 20:36 Gram Stain - Preliminary Sputum Sputum Culture - Preliminary Assessment and Plan Plan: Acute on chronic hypoxemic respiratory failure secondary to an acute exacerbation of chronic obstructive pulmonary disease. No clear evidence of pneumonia. Awaiting final sputum samples and will decide on any further treatment with antibiotics accordingly. Severe oxygen dependent chronic obstructive pulmonary disease. History of heavy tobacco dependence. History of pseudomonas pneumonia requiring mechanical ventilation with inability to wean and subsequent tracheostomy tube placement and removal. Acquired tracheocutaneous fistula. History of general anxiety disorder. Diabetes mellitus, type II. Coagulase-negative staph in the blood, likely a colonizer, final cultures are not to be Staphylococcus auricularis Plan: Clinically stable Keep the patient on oxygen at 3 L nasal cannula DuoNeb neb on the clock Prednisone burst taper at the time of discharge my Solu-Medrol was dropped down to 40 mg every 8 hours No antibiotic coverage for now He is all medication will include Trelegy Ellipta, theophylline and a DuoNeb nebulizer treatments around the clock. Is also on 5 mg of prednisone on outpatient basis. May discontinue the vancomycin. Medicine is still working on the previously possible culture. Repeat cultures have been negative. Plan to discharge this patient home probably by tomorrow. Awaiting the final sputum sample cultures.
[2022-09-25 11:43] LABS: Glucose,Whole Blood 210 mg/dL (70-110)
--- NOTE | 2022-09-25 12:40 | P.PN ---
Progress Note - Text Progress Note Date: 09/25/22 Chief Complaint: Short of breath This is a pleasant 77-year-old patient who follows with Dr. 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 Patient able to get around the house without any shaw pport. Patient presents with 4 days of worsening shortness of breath. Slight cough which is quite his baseline. Little phlegm if any. No fever no chills. No edema. Appetite is fair. Tired. Rundown. Admitted with COPD exacerbation. Admitted with COPD exacerbation and acute hypoxic/hypercapnic respiratory failure. 09/21/2022: Sitting at the edge bed. Remains short of breath. Coughing or sp utum. Oral intake fair. Awaiting input from pulmonary. Add theophylline 300 mg daily at bedtime 09/22/2022: Sitting at the edge of the bed.started on theophylline last night. Breathing Dose of IV Solu-Medrol increased yesterday. better. Some sputum. Oral intake fair. 09/23/2022: Sitting at edge bed. Breathing slowly improving. Better short of breath. On IV Solu-Medrol. Eating well. September 24 2022: Breathing better. Less cough. Cutback IV Solu-Medrol to 40 mg every 8. Continue other medications. Discussed with the patient and director of casework department. They'll arrange for transport to go home tomorrow. 09/25/2022: Patient blood cultures have been positive for Staphylococcus auricularis-possibly contaminant. On IV vancomycin. Consult ID. Hold off discharge for now. Breathing better. Active Medications Acetaminophen (Acetaminophen Tab 325 Mg Tab) 650 mg PO Q6HR PRN PRN Reason: Mild Pain or Fever > 100.5 Albuterol/Ipratropium (Ipratropium-Albuterol 3 Ml Neb) 3 ml INHALATION RT-Q4H AKIKO Last Admin: 09/25/22 11:57 Dose: 3 ml Alprazolam (Alprazolam 0.5 Mg Tab) 0.5 mg PO BID PRN PRN Reason: Anxiety Last Admin: 09/24/22 12:34 Dose: 0.5 mg Alprazolam (Alprazolam 0.5 Mg Tab) 0.5 mg PO HS AKIKO Last Admin: 09/24/22 20:35 Dose: 0.5 mg Atorvastatin Calcium (Atorvastatin 20 Mg Tab) 20 mg PO HS [facility] Last Admin: 09/24/22 20:35 Dose: 20 mg Budesonide (Budesonide 1 Mg/2 Ml Nebu) 1 mg INHALATION RT-BID [facility] Last Admin: 09/25/22 08:59 Dose: 1 mg Calcium Carbonate/Glycine (Calcium Carbonate 500 Mg Chewable) 1,000 mg PO Q4HR PRN PRN Reason: Dyspepsia Dextrose/Water (Dextrose 50% Syringe 50 Ml) 25 ml IVP PER PROTOCOL PRN; Protocol PRN Reason: Hypoglycemia Dextrose/Water (Dextrose 50% Syringe 50 Ml) 50 ml IVP PER PROTOCOL PRN; Pro tocol PRN Reason: Hypoglycemia Diltiazem HCl (Diltiazem Cd 120 Mg Cap.Er.24h) 120 mg PO DAILY [facility] Last Admin: 09/25/22 08:01 Dose: 120 mg Enoxaparin Sodium (Enoxaparin 40 Mg/0.4 Ml Syringe) 40 mg SQ DAILY [facility] Last Admin: 09/25/22 08:01 Dose: 40 mg Formoterol Fumarate (Formoterol Fumarate 20 Mcg/2 Ml Nebu) 20 mcg INHALATION RT-BID [facility] Last Admin: 09/25/22 09:00 Dose: 20 mcg Vancomycin HCl 1,500 mg/ (Sodium Chloride) 500 mls @ 167 mls/hr IVPB Q12H [facility] Last Admin: 09/25/22 04:32 Dose: 167 mls/hr Insulin Aspart (Insulin Aspart (Novolog) 100 Unit/Ml Vial) 0 unit SQ AC-TID [facility]; Protocol Last Admin: 09/25/22 06:42 Dose: 2 unit Insulin Detemir (Insulin Detemir (Levemir) 100 Unit/Ml Syr) 16 unit SQ DAILY@0700 [facility] Last Admin: 09/25/22 06:42 Dose: 16 unit Lactulose (Lactulose 20 Gm/30 Ml Cup) 20 gm PO DAILY PRN PRN Reason: Constipation Metformin HCl (Metformin 500 Mg Tab) 500 mg PO BID-W/MEALS [facility] Last Admin: 09/25/22 06:42 Dose: 500 mg Miscellaneous Information (Vancomycin Trough Due 1 Each Misc) 0 each MISCELLANE DIRECTED ONE Stop: 09/25/22 15:01 Naloxone HCl (Naloxone 0.4 Mg/Ml 1 Ml Vial) 0.2 mg IV Q2M PRN PRN Reason: Opioid Reversal Ondansetron HCl (Ondansetron 4 Mg/2 Ml Vial) 4 mg IVP Q8HR PRN PRN Reason: Nausea And Vomiting Prednisone (Prednisone 20 Mg Tab) 40 mg PO DAILY [facility] Theophylline (Theophylline 24 Hour 300 Mg Cap.Er.24h) 300 mg PO HS [facility] Last Admin: 09/24/22 20:35 Dose: 300 mg Past medical history to include: Anxiety, COPD, hyperlipidemia, diabetes, hypertension Social history: This is his brother. Stop smoking 7 years ago, smoked for about 60 years was smoking up to 3 packs a day. 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 Physical examination: VITAL SIGNS: 97.8, 101, 18, 1 29 x 6 2, 95% on 3 L GENERAL: Sitting at edge of bed, breathing better, tattoos EYES: Pupils equal. Conjunctiva normal. HEENT: External appearance of nose and ears normal, oral cavity grossly normal. NECK: JVD not raised; masses not palpable. HEART: First and second heart sounds are normal; no edema. LUNGS:Respiratory rate increased diminished breath sounds ABDOMEN: Soft, nontender, liver spleen not palpable, no masses palpable. PSYCH: Alert and oriented x3; mood and affect slightly anxious MUSCULOSKELETAL:No Clubbing/cyanosis;muscles-grossly intact, evidence of OA INVESTIGATIONS, reviewed in the clinical context: Blood culture [September 20]: Staphylococcus auricularis, Staphylococcus aortic tinnitus September 23: WBC 12.9 hemoglobin 11.6 potassium 4.6 creatinine 0.67 Venous gases: PCO2 is 76 bicarbonate 43 pH 7.36 WBC 10.9 hemoglobin 13.2 platelets 240 sodium 139 potassium 4.6 bicarbonate 41 BUN 22 creatinine 0.58 lactic acid 3.8 Troponin I less than 0.012 COVID 19/influenza type A/influenza type B: Not detected EKG tracing personally reviewed by me: Normal sinus rhythm. Chest x-ray film personally reviewed by me-hyperinflation, prominent pulmonary artery Assessment and plan: -Acute exacerbation of severe steroid-dependent COPD in a previous smoker: Improving DuoNeb every 4, IV Solu-Medrol, changed to oral prednisone, nebulized Perforomist and nebulized steroids. theophylline 300 mg daily at bedtime -Acute on chronic hypoxic and hypercapnic type II respiratory failure from COPD Baseline oxygen is 3 L, -Blood culture positive for Staphylococcus auricularis, possibly contaminant. On IV vancomycin. Get ID opinion -Anxiety not otherwise specified Xanax when necessary -Hyperlipidemia Lipitor -Diabetes mellitus type 2, chronically on oral hypoglycemic, uncontrolled with hyperglycemia secondary to steroids Follow Accu-Cheks with sliding scale. increase Levemir 16 units subcu daily -Essential hypertension Cardizem -Full code Change IV Solu-Medrol to prednisone. Sputum cultures pending. Get ID consultation for the blood cultures. Repeat coming back negative. Hold discharge for now.
[2022-09-25] MEDS: ALPRAZolam 0.5 MG TAB PO PRN (12:50)
[2022-09-25 12:52] VITALS: BMI 26.6
[2022-09-25] MEDS ORDERED: VANCOMYCIN TROUGH DUE 1 EACH MISC MISCELLANE ONE (15:00)
[2022-09-25 16:22] LABS: Glucose,Whole Blood 193 mg/dL (70-110)
[2022-09-25 20:06] LABS: Glucose,Whole Blood 195 mg/dL (70-110)
[2022-09-25] MEDS: ALPRAZolam 0.5 MG TAB PO SCH (20:52)
[2022-09-25] MEDS: ATORVASTATIN 20 MG TAB PO SCH (20:52)
[2022-09-25] MEDS: THEOPHYLLINE 24 HOUR 300 MG CAP.ER.24H PO SCH (20:52)
[2022-09-26] MEDS: IPRATROPIUM-ALBUTEROL 3 ML NEB INHALATION SCH ×6 (03:59→23:53)
[2022-09-26] MEDS: VANCOMYCIN 1,500 MG in SODIUM CHLORIDE 0.9% 500 ML 500 ML IVPB SCH (04:59)
[2022-09-26] MEDS: INSULIN ASPART (NovoLOG) 100 UNIT/ML VIAL SQ SCH ×4 (06:19→20:30)
[2022-09-26 06:20] LABS: Glucose,Whole Blood 136 mg/dL (70-110)
[2022-09-26] MEDS: INSULIN DETEMIR (LEVEMIR) 100 UNIT/ML SYR SQ SCH (06:31)
[2022-09-26] MEDS: metFORMIN 500 MG TAB PO SCH ×2 (06:32→17:54)
--- NOTE | 2022-09-26 08:03 | P.CONS ---
History of Present Illness - Reason for Consult Consult date: 09/25/22 - History of Present Illness Patient is a 77-year-old male with a past medical history significant for diabetes mellitus generalized anxiety disorder pneumonia with ventilator dependent respiratory failure requiring tracheostomy subsequently more COPD, presenting to the hospital about 5 days ago on 09/20/2022 for evaluation of increasing shortness of breath cough and congestion symptom has been going on for about 3 days before presentation to the hospital the patient also have a cough which is moderate intensity has been bringing up some sputum however no sputum has been collected during this hospital stay patient denies having any hemoptysis or any pleuritic chest pain patient presentation to the hospital was afebrile and no fever has been recorded subsequently patient did have white count of 10.9 subsequent white was 12.9 with a left shift patient did have a normal creatinine influenza and dominguez PCR was negative patient did have a chest x-ray no evidence of acute pulmonary disease patient has been admitted to hospital and has been treated for COPD exacerbation patient did have blood cultures drawn on admission that has been finalized with Staphylococcus auricularis patient has been treated with vancomycin infectious disease was consulted because of positive blood culture patient currently do not have any open wounds and mostly respiratory symptoms as mentioned above seem to be slightly improving Past Medical History Past Medical History: COPD, Diabetes Mellitus Additional Past Medical History / Comment(s): pneumonia History of Any Multi-Drug Resistant Organisms: MRSA Year Discovered:: 2011 MDRO Source:: sputum Past Surgical History: Orthopedic Surgery Additional Past Surgical History / Comment(s): trachesotmy 2011 Past Anesthesia/Blood Transfusion Reactions: No Reported Reaction Past Psychological History: Anxiety, Depression Smoking Status: Former smoker Past Alcohol Use History: None Reported Additional Past Alcohol Use History / Comment(s): quit drinking in 2008, was a heavy drinker bottle of vodka daily for 10 years Past Drug Use History: None Reported - Past Family History Father Family Medical History: Osteoarthritis (OA) Mother Family Medical History: Congestive Heart Failure (CHF), Diabetes Mellitus, Osteoarthritis (OA) Brother(s) Family Medical History: Myocardial Infarction ([place]) Additional Family Medical History / Comment(s): One brother of drowning, One of suicide, One of a heart attack at the age of 52 or 54 Medications and Allergies Home Medications Medication Instructions Recorded Confirmed Type ALPRAZolam [Xanax] 0.5 mg PO BID PRN 03/16/19 10/28/22 History Albuterol Inhaler [Ventolin Hfa 2 puff INHALATION RT-Q6H PRN 02/06/19 09/20/22 History Inhaler] Atorvastatin [Lipitor] 20 mg PO HS 02/06/19 09/20/22 History Diltiazem Cd [Cardizem CD] 120 mg PO DAILY 02/06/19 09/20/22 History Fluticasone Nasal [place] [Flonase 1 spr EA NOSTRIL DAILY 02/06/19 09/20/22 History Nasal [place]] Ipratropium-Albuterol Nebulize 3 ml INHALATION RT-Q4H PRN 02/06/19 09/20/22 History [Duoneb 0.5 mg-3 mg/3 ml Soln] ALPRAZolam [Xanax] 0.5 mg PO HS 09/20/22 09/20/22 History Azithromycin [Zithromax Z Pack] See Taper PO DIRECTED 09/20/22 09/20/22 History Fluticasone/Umeclidin/Vilanter 1 puff INHALATION RT-DAILY 09/20/22 09/20/22 History [Trelegy Ellipta 100-62.5-25] metFORMIN HCL ER [Glucophage XR] 500 mg PO BID-W/MEALS 09/20/22 09/20/22 History predniSONE 5 mg PO HS 09/20/22 09/20/22 History predniSONE 10 mg PO DAILY 09/20/22 09/20/22 History Allergies Allergy/AdvReac Type Severity Reaction Status Date / Time No Known Allergies Allergy Verified 09/20/22 17:06 Physical Exam Vitals: Vital Signs Temp Pulse Pulse Resp BP Pulse Ox 09/25/22 12:09 98 18 09/25/22 11:57 99 18 09/25/22 09:21 99 18 09/25/22 09:15 94 18 09/25/22 09:14 94 18 09/25/22 09:02 96 18 95 09/25/22 07:57 101 H 14 09/25/22 07:56 97.8 F 101 H 14 129/62 95 09/25/22 04:00 97.5 F L 86 12 115/62 96 09/24/22 20:58 94 09/24/22 20:47 96 09/24/22 20:46 96 09/24/22 20:34 92 09/24/22 20:00 98 F 81 14 133/61 97 09/24/22 15:47 96 09/24/22 15:08 98.3 F 77 15 139/63 94 L 09/24/22 13:57 98 15 09/24/22 12:29 97.0 F L 98 15 141/62 94 L Intake and Output 09/24/22 09/25/22 09/25/22 22:59 06:59 14:59 Output Total 250 Balance -250 Output: Urine 250 Other: Voiding Method Urinal Urinal Results CBC & Chem 7: 09/23/22 07:21 09/24/22 09:27 Labs: Abnormal Lab Results - Last 24 Hours (Table) 09/24/22 09/24/22 09/25/22 Range/Units 16:38 20:17 06:12 POC Glucose (mg/dL) 167 H 192 H 183 H (70-110) mg/dL 09/25/22 Range/Units 11:36 POC Glucose (mg/dL) 210 H (70-110) mg/dL Microbiology - Last 24 Hours (Table) 09/20/22 15:01 Blood Culture Gram Stain - Final Blood Blood Culture - Final Staphylococcus auricularis 09/23/22 14:47 Blood Culture - Preliminary Blood No Growth after 24 hours 09/23/22 14:47 Blood Culture - Preliminary Blood No Growth after 24 hours 09/22/22 12:09 Blood Culture - Preliminary Blood No Growth after 48 hours 09/23/22 20:36 Gram Stain - Preliminary Sputum Sputum Culture - Preliminary Assessment and Plan Plan: 1patient with a positive blood culture with Staphylococcus auricularis in this patient presented to hospital predominantly with respiratory symptoms and was concern for possible tracheobronchitis patient did not have any fever or elevated white count on admission chest x-ray was negative question of possible skin contamination versus related to possible pneumonia. 2blood cultures will be repeated document clearance of bacteremia. 3we will obtain a sputum for gram stain and culture. 4we will repeat his inflammatory markers. 5repeat a chest x-ray PA and lateral. We will follow on clinical condition and cultures to further adjust medication if needed Thank you for this consultation will follow this patient along with you
[2022-09-26] MEDS: FORMOTEROL FUMARATE 20 MCG/2 ML NEBU INHALATION SCH ×2 (08:25→19:40)
[2022-09-26] MEDS: BUDESONIDE 1 MG/2 ML NEBU INHALATION SCH ×2 (08:25→19:40)
[2022-09-26] MEDS: DILTIAZEM CD 120 MG CAP.ER.24H PO SCH (09:05)
[2022-09-26] MEDS: predniSONE 20 MG TAB PO SCH (09:05)
[2022-09-26] MEDS: ENOXAPARIN 40 MG/0.4 ML SYRINGE SQ SCH (09:05)
--- NOTE | 2022-09-26 10:07 | CONS ---
CONSULTATION REASON FOR CONSULTATION: Consultation was performed per the request of Dr. Lizama regarding involved nails. HISTORY OF PRESENT ILLNESS: This patient is a pleasant 77-year-old male, who follows with Dr. Valiente as his primary care physician and Dr. 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 The patient has advanced COPD with home oxygen 3 L and steroid dependent. The patient was able to get around the house without any support. The patient presented with 4 days of worsening shortness of breath, slight cough, which is quite baseline, little phlegm if any. No fever or chills. No edema. Appetite is fair. The patient states that he is tired and run down. He is admitted with COPD exacerbation. REVIEW OF SYSTEMS: GENERAL: Tired. EYES: None. HEENT: None. RESPIRATORY: As above. CARDIOVASCULAR: No chest pain. GASTROINTESTINAL: None. EXTREMITIES: The patient had palpable pedal pulses rated at +1/4 with regard to the dorsalis pedis and posterior tibial arteries of both feet. Range of motion; ankle, subtalar, midtarsal, metatarsophalangeal joints were free and unrestricted. Babinski and clonus signs were negative. IMPRESSION: 1. Chronic obstructive pulmonary disease. 2. History of anxiety. 3. History of hyperlipidemia. 4. Diabetes mellitus. 5. Hypertension. 6. Onychomycosis. I reduced the patient's nails 1 through 5 bilaterally. was performed. Antiseptic was applied. Thank you for consulting me in the care of your patient. MMODL / IJN: [id number] /
[2022-09-26 11:41] LABS: Glucose,Whole Blood 70 mg/dL (70-110)
--- NOTE | 2022-09-26 12:07 | XR ---
EXAMINATION TYPE: XR chest 2V DATE OF EXAM: 09/26/2022 COMPARISON: 09/20/2022 INDICATION: Pneumonia TECHNIQUE: Frontal and lateral views of the chest are obtained. FINDINGS: The heart size is normal. The pulmonary vasculature is normal. Mild right lower lobe infiltrate is present. This is nonspecific. Correlate for atelectasis. Pneumoni a could be considered. Small right pleural effusion is present. There is hyperinflation flattening th e diaphragms compatible with COPD.. IMPRESSION: 1. Right lower lobe atelectasis. Pneumonia should be considered. 2. Small right pleural effusion, developing from comparison.
[2022-09-26] MEDS: ALPRAZolam 0.5 MG TAB PO PRN (12:59)
--- NOTE | 2022-09-26 13:11 | P.PN ---
Subjective Progress Note Date: 09/26/22 Principal diagnosis: Shortness of breath. This is a 77-year-old male patient with a history of diabetes mellitus, general anxiety disorder, obesity, previous pseudomonas pneumonias with previous ventilatory dependent respiratory failure requiring tracheostomy and subsequent removal in 2011. He also has severe oxygen dependent chronic obstructive pulmonary disease maintained on home oxygen at 3 L. He is Trelegy, DuoNeb inhalations and albuterol HFA. He is also steroid dependent and is on 5 mg daily. He does have been required transcutaneous fistula with a dressing over his anterior neck. He was a heavy smoker for many years starting at the age of 10. Quit about 10 years ago. He presented to the emergency room with a three- day history of increasing shortness of breath cough or congestion. He had titrated up his oxygen to 5 L without much improvement. His saturations were still in the 80s. Denied any sick contacts. No known exposure to cold or flu. Chest x-ray shows no acute pulmonary process. White count 10.9. Hemoglobin 13.2. Sodium 139. Potassium 4.6. Bicarb 41. BUN 22. Creatinine 0.58. Glucose 247. AST 20. ALT 16. Troponin negative 1. Yao virus not detected. Influenza screen negative. He's been initiated on theophylline, DuoNeb inhalations, Pulmicort and Perforomist inhalations, Solu-Medrol. He is seen today in consultation on the selective care unit. He is currently resting comfortably in bed. Awake and alert in no acute distress. Maintaining O2 saturations in the 90s on 3 L/m per nasal cannula. He's been afebrile. H emodynamically stable. Progress note dated 09/22/2022. The patient is seen today in room 382. We saw the patient yesterday in consultation. He was minute with a diagnosis of COPD exacerbation. He has an extensive history including diabetes, anxiety, obesity, pseudomonas pneumonia, ventilator dependent respiratory failure, tracheostomy, and subsequent decannulation. He also has chronic hypoxemic respiratory failure, and uses home oxygen at 3 L, 16/06. Currently, he is on 4 L of oxygen. He is not receiving any IV fluids. He actually states that he's feeling a bit better today. He was placed on usual medications. No new labs today other than a creatinine 0.64, and a glucose of 172. Blood cultures are positive for coag-negative staph. This is likely a contaminant. Progress note dated 09/26/2022. 77-year-old male seen a few days ago in consultation. He has a history of diabetes, anxiety, obesity, pseudomonas pneumonia, and previous ventilator dependent respiratory failure requiring tracheostomy and its subsequent removal. He was admitted with a diagnosis of COPD exacerbation. Currently, the patient's on 3 L of oxygen. He's not receiving any IV fluids and he is laying i n bed sleeping on his right side. No recent blood work ordered. Sputum showing evidence of Pseudomonas. In addition, blood cultures from September 20 showed evidence of Staphylococcus auricularis. The patient continues on vancomycin. The recent chest x-ray shows some right lower lobe atelectasis or infiltrate, and a small right-sided pleural effusion. Objective - Vital Signs Vital signs: Vital Signs Temp 98.0 F 09/26/22 08:00 Pulse 101 H 09/26/22 08:41 Resp 20 09/26/22 08:00 BP 139/73 09/26/22 08:00 Pulse Ox 97 09/26/22 08:26 FiO2 Intake & Output 09/25/22 09/26/22 09/26/22 18:59 06:59 18:59 Intake Total 236 Output Total 250 Balance -250 236 Weight 77.111 kg Intake: Oral 236 Output: Urine 250 Other: Voiding Method Urinal Urinal Urinal - Exam No acute distress, oriented 3. No audible wheezing, or use of accessory muscles. Nasal O2 noted. HEENT examination is grossly unremarkable. Neck supple. Full range of motion. No adenopathy thyromegaly or neck vein distention. Cardiovascular examination reveals regular rhythm rate. S1-S2 normal. No S3 or S4. No discernible murmur noted. Heart rate 92 bpm. Lungs reveal scattered bilateral expiratory wheezes. Breath sounds are equal bilaterally. Breath sounds are severely diminished throughout. No crackles. Abdomen soft bowel sounds are heard. No masses or tenderness. Extremities are intact. No cyanosis or clubbing. Trace edema present. Skin is without rash or lesion. Neurologic examination is brief but nonfocal. - Labs CBC & Chem 7: 09/23/22 07:21 09/24/22 09:27 Labs: Abnormal Lab Results - Last 24 Hours (Table) 09/25/22 09/25/22 09/26/22 Range/Units 16:20 20:05 06:17 POC Glucose (mg/dL) 193 H 195 H 136 H (70-110) mg/dL Microbiology - Last 24 Hours (Table) 09/23/22 20:36 Gram Stain - Preliminary Sputum Sputum Culture - Preliminary Pseudomonas aeruginosa 09/23/22 14:47 Blood Culture - Preliminary Blood No Growth after 48 hours 09/23/22 14:47 Blood Culture - Preliminary Blood No Growth after 48 hours 09/22/22 12:09 Blood Culture - Preliminary Blood No Growth after 72 hours 09/20/22 15:01 Blood Culture Gram Stain - Final Blood Blood Culture - Final Staphylococcus auricularis Assessment and Plan Assessment: Acute on chronic hypoxemic respiratory failure secondary to an acute exacerbation of chronic obstructive pulmonary disease. Possible pseudomonas aeruginosa pneumonia, right lower lobe. Severe oxygen dependent chronic obstructive pulmonary disease. History of heavy tobacco dependence. History of pseudomonas pneumonia requiring mechanical ventilation with inability to wean and subsequent tracheostomy tube placement and removal. Acquired tracheocutaneous fistula. History of general anxiety disorder. Diabetes mellitus, type II. Plan: Plan dated 09/22/2022. The patient's on 4 L of oxygen. He looks well comfortable. The patient states that he is feeling better. He was placed on albuterol sulfate, and ipratropium bromide, 4 times a day and when necessary. In addition, he is receiving formoterol 20 g, and budesonide 1 mg, twice a day. Also, the patient is on Solu-Medrol, 60 mg IV push, every 6 hours. He also continues on theophylline. We will continue to follow the patient make recommendations along the way. Prognosis is guarded. Labs, x-rays, and medications are all reviewed. Plan dated 09/26/2022. Given the results of the sputum on September 23, and his prior history of pseudomonas pneumonia, infectious diseases should be consulted for advice as to proper antibiotic treatment. The patient continues on vancomycin at the current time. He is on 3 L of oxygen. He looks relatively comfortable. His other medications are appropriate. Labs, x-rays, medications are reviewed. Prognosis is guarded. Time with Patient: Less than 30
[2022-09-26 16:24] LABS: Glucose,Whole Blood 149 mg/dL (70-110)
--- NOTE | 2022-09-26 17:40 | P.PN ---
Progress Note - Text Progress Note Date: 09/26/22 Chief Complaint: Short of breath This is a pleasant 77-year-old patient who follows with Dr. 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 Patient able to get around the house without any shaw pport. Patient presents with 4 days of worsening shortness of breath. Slight cough which is quite his baseline. Little phlegm if any. No fever no chills. No edema. Appetite is fair. Tired. Rundown. Admitted with COPD exacerbation. Admitted with COPD exacerbation and acute hypoxic/hypercapnic respiratory failure. 09/21/2022: Sitting at the edge bed. Remains short of breath. Coughing or sp utum. Oral intake fair. Awaiting input from pulmonary. Add theophylline 300 mg daily at bedtime 09/22/2022: Sitting at the edge of the bed.started on theophylline last night. Breathing Dose of IV Solu-Medrol increased yesterday. better. Some sputum. Oral intake fair. 09/23/2022: Sitting at edge bed. Breathing slowly improving. Better short of breath. On IV Solu-Medrol. Eating well. September 24 2022: Breathing better. Less cough. Cutback IV Solu-Medrol to 40 mg every 8. Continue other medications. Discussed with the patient and onsite case manager. They'll arrange for transport to go home tomorrow. 09/25/2022: Patient blood cultures have been positive for Staphylococcus auricularis-possibly contaminant. On IV vancomycin. Consult ID. Hold off discharge for now. Breathing better. 09/26/2022: Patient's repeat blood cultures are negative. Sputum culture growing Pseudomonas from his tracheostomy site.. Starting IV cefepime. Vancomycin discontinued. Eating fair. Active Medications Acetaminophen (Acetaminophen Tab 325 Mg Tab) 650 mg PO Q6HR PRN PRN Reason: Mild Pain or Fever > 100.5 Albuterol/Ipratropium (Ipratropium-Albuterol 3 Ml Neb) 3 ml INHALATION RT-Q4H AKIKO Last Admin: 09/26/22 15:50 Dose: Not Given Alprazolam (Alprazolam 0.5 Mg Tab) 0.5 mg PO BID PRN PRN Reason: Anxiety Last Admin: 09/26/22 12:59 Dose: 0.5 mg Alprazolam (Alprazolam 0.5 Mg Tab) 0.5 mg PO HS [facility] Last Admin: 09/25/22 20:52 Dose: 0.5 mg Atorvastatin Calcium (Atorvastatin 20 Mg Tab) 20 mg PO HS [facility] Last Admin: 09/25/22 20:52 Dose: 20 mg Budesonide (Budesonide 1 Mg/2 Ml Nebu) 1 mg INHALATION RT-BID [facility] Last Admin: 09/26/22 08:25 Dose: 1 mg Calcium Carbonate/Glycine (Calcium Carbonate 500 Mg Chewable) 1,000 mg PO Q4HR PRN PRN Reason: Dyspepsia Dextrose/Water (Dextrose 50% Syringe 50 Ml) 25 ml IVP PER PROTOCOL PRN; Protocol PRN Reason: Hypoglycemia Dextrose/Water (Dextrose 50% Syringe 50 Ml) 50 ml IVP PER PROTOCOL PRN; Protocol PRN Reason: Hypoglycemia Diltiazem HCl (Diltiazem Cd 120 Mg Cap.Er.24h) 120 mg PO DAILY [facility] Last Admin: 09/26/22 09:05 Dose: 120 mg Enoxaparin Sodium (Enoxaparin 40 Mg/0.4 Ml Syringe) 40 mg SQ DAILY [facility] Last Admin: 09/26/22 09:05 Dose: 40 mg Formoterol Fumarate (Formoterol Fumarate 20 Mcg/2 Ml Nebu) 20 mcg INHALATION RT-BID [facility] Last Admin: 09/26/22 08:25 Dose: 20 mcg Cefepime HCl 2 gm/ Sodium (Chloride) 100 mls @ 25 mls/hr IVPB Q8HR [facility]; Protocol Insulin Aspart (Insulin Aspart (Novolog) 100 Unit/Ml Vial) 0 unit SQ AC-TID [facility]; Protocol Last Admin: 09/26/22 17:18 Dose: Not Given Insulin Detemir (Insulin Detemir (Levemir) 100 Unit/Ml Syr) 16 unit SQ DAILY@0700 [facility] Last Admin: 09/26/22 06:31 Dose: 16 unit Lactulose (Lactulose 20 Gm/30 Ml Cup) 20 gm PO DAILY PRN PRN Reason: Constipation Metformin HCl (Metformin 500 Mg Tab) 500 mg PO BID-W/MEALS [facility] Last Admin: 09/26/22 06:32 Dose: 500 mg Naloxone HCl (Naloxone 0.4 Mg/Ml 1 Ml Vial) 0.2 mg IV Q2M PRN PRN Reason: Opioid Reversal Ondansetron HCl (Ondansetron 4 Mg/2 Ml Vial) 4 mg IVP Q8HR PRN PRN Reason: Nausea And Vomiting Prednisone (Prednisone 20 Mg Tab) 40 mg PO DAILY [facility] Last Admin: 09/26/22 09:05 Dose: 40 mg Theophylline (Theophylline 24 Hour 300 Mg Cap.Er.24h) 300 mg PO HS [facility] Last Admin: 09/25/22 20:52 Dose: 300 mg Past medical history to include: Anxiety, COPD, hyperlipidemia, diabetes, hypertension Social history: This is his brother. Stop smoking 7 years ago, smoked for about 60 years was smoking up to 3 packs a day. 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 Physical examination: VITAL SIGNS: Afebrile, 102, 18, 136.77, 96% on 3 L GENERAL: He planning breathing better, tattoos EYES: Pupils equal. Conjunctiva normal. HEENT: External appearance of nose and ears normal, oral cavity grossly normal. Tracheostomy site covered with gauze NECK: JVD not raised; masses not palpable. HEART: First and second heart sounds are normal; no edema. LUNGS:Respiratory rate increased diminished breath sounds ABDOMEN: Soft, nontender, liver spleen not palpable, no masses palpable. PSYCH: Alert and oriented x3; mood and affect slightly anxious MUSCULOSKELETAL:No Clubbing/cyanosis;muscles-grossly intact, evidence of OA INVESTIGATIONS, reviewed in the clinical context: Sputum culture: Pseudomonas Blood culture [September 20]: Staphylococcus auricularis, September 23: WBC 12.9 hemoglobin 11.6 potassium 4.6 creatinine 0.67 Venous gases: PCO2 is 76 bicarbonate 43 pH 7.36 WBC 10.9 hemoglobin 13.2 platelets 240 sodium 139 potassium 4.6 bicarbonate 41 BUN 22 creatinine 0.58 lactic acid 3.8 Troponin I less than 0.012 COVID 19/influenza type A/influenza type B: Not detected EKG tracing personally reviewed by me: Normal sinus rhythm. Chest x-ray film personally reviewed by me-hyperinflation, prominent pulmonary artery Assessment and plan: -Acute exacerbation of severe steroid-dependent COPD in a previous smoker: Better DuoNeb every 4, IV Solu-Medrol, changed to oral prednisone, nebulized Perforomist and nebulized steroids. theophylline 300 mg daily at bedtime -Pseudomonas pneumonia Started IV cefepime -Acute on chronic hypoxic and hypercapnic type II respiratory failure from COPD Baseline oxygen is 3 L, -Blood culture positive for Staphylococcus auricularis, possibly contaminant. *Vancomycin. Seen by ID -Anxiety not otherwise specified Xanax when necessary -Hyperlipidemia Lipitor -Diabetes mellitus type 2, chronically on oral hypoglycemic, uncontrolled with hyperglycemia secondary to steroids Follow Accu-Cheks with sliding scale. Decrease Levemir 8 units subcu daily. Metformin -Essential hypertension Cardizem -Full code Oral prednisone. Pseudomonas in the sputum. Started on IV cefepime. Vancomycin discontinued. Cutback dose of Levemir. Follow with ID and pulmonary.
[2022-09-26] MEDS: CEFEPIME 2 GM in SODIUM CHLORIDE 0.9% 100 ML IVPB SCH (17:55)
[2022-09-26 20:12] LABS: Glucose,Whole Blood 243 mg/dL (70-110)
[2022-09-26] MEDS: ALPRAZolam 0.5 MG TAB PO SCH (20:30)
[2022-09-26] MEDS: THEOPHYLLINE 24 HOUR 300 MG CAP.ER.24H PO SCH (20:30)
[2022-09-26] MEDS: ATORVASTATIN 20 MG TAB PO SCH (20:30)
[2022-09-27] MEDS: CEFEPIME 2 GM in SODIUM CHLORIDE 0.9% 100 ML IVPB SCH ×3 (01:09→15:03)
[2022-09-27] MEDS: IPRATROPIUM-ALBUTEROL 3 ML NEB INHALATION SCH ×7 (03:51→23:57)
[2022-09-27 06:12] LABS: African American GFR (CKD) >90 (>60 ml/min/1.73 sqM); Blood Urea Nitrogen 27 mg/dL (9-20); Chloride 92 mmol/L (98-107); Glucose 109 mg/dL (74-99); Non-African American GFR(CKD) >90 (>60 ml/min/1.73 sqM); Potassium 4.6 mmol/L (3.5-5.1); Sodium 138 mmol/L (137-145)
[2022-09-27 06:19] LABS: Anion Gap 4 mmol/L
[2022-09-27 06:25] LABS: Carbon Dioxide 42 mmol/L (22-30)
[2022-09-27] MEDS ORDERED: INSULIN DETEMIR (LEVEMIR) 100 UNIT/ML SYR SQ SCH (07:00)
[2022-09-27 07:46] LABS: Glucose,Whole Blood 81 mg/dL (70-110)
[2022-09-27] MEDS: FORMOTEROL FUMARATE 20 MCG/2 ML NEBU INHALATION SCH (07:59)
[2022-09-27] MEDS: BUDESONIDE 1 MG/2 ML NEBU INHALATION SCH (07:59)
[2022-09-27] MEDS: DILTIAZEM CD 120 MG CAP.ER.24H PO SCH (09:17)
[2022-09-27] MEDS: predniSONE 20 MG TAB PO SCH (09:18)
[2022-09-27] MEDS: ENOXAPARIN 40 MG/0.4 ML SYRINGE SQ SCH (09:18)
[2022-09-27] MEDS: metFORMIN 500 MG TAB PO SCH ×2 (09:19→19:19)
[2022-09-27] MEDS: INSULIN ASPART (NovoLOG) 100 UNIT/ML VIAL SQ SCH ×7 (09:21→21:02)
[2022-09-27] MEDS: ALPRAZolam 0.5 MG TAB PO PRN (09:23)
--- NOTE | 2022-09-27 12:16 | P.PN ---
Subjective Progress Note Date: 09/27/22 Principal diagnosis: Shortness of breath. This is a 77-year-old male patient with a history of diabetes mellitus, general anxiety disorder, obesity, previous pseudomonas pneumonias with previous ventilatory dependent respiratory failure requiring tracheostomy and subsequent removal in 2011. He also has severe oxygen dependent chronic obstructive pulmonary disease maintained on home oxygen at 3 L. He is Trelegy, DuoNeb inhalations and albuterol HFA. He is also steroid dependent and is on 5 mg daily. He does have been required transcutaneous fistula with a dressing over his anterior neck. He was a heavy smoker for many years starting at the age of 10. Quit about 10 years ago. He presented to the emergency room with a three- day history of increasing shortness of breath cough or congestion. He had titrated up his oxygen to 5 L without much improvement. His saturations were still in the 80s. Denied any sick contacts. No known exposure to cold or flu. Chest x-ray shows no acute pulmonary process. White count 10.9. Hemoglobin 13.2. Sodium 139. Potassium 4.6. Bicarb 41. BUN 22. Creatinine 0.58. Glucose 247. AST 20. ALT 16. Troponin negative 1. Yao virus not detected. Influenza screen negative. He's been initiated on theophylline, DuoNeb inhalations, Pulmicort and Perforomist inhalations, Solu-Medrol. He is seen today in consultation on the selective care unit. He is currently resting comfortably in bed. Awake and alert in no acute distress. Maintaining O2 saturations in the 90s on 3 L/m per nasal cannula. He's been afebrile. H emodynamically stable. Progress note dated 09/22/2022. The patient is seen today in room 382. We saw the patient yesterday in consultation. He was minute with a diagnosis of COPD exacerbation. He has an extensive history including diabetes, anxiety, obesity, pseudomonas pneumonia, ventilator dependent respiratory failure, tracheostomy, and subsequent decannulation. He also has chronic hypoxemic respiratory failure, and uses home oxygen at 3 L, 16/06. Currently, he is on 4 L of oxygen. He is not receiving any IV fluids. He actually states that he's feeling a bit better today. He was placed on usual medications. No new labs today other than a creatinine 0.64, and a glucose of 172. Blood cultures are positive for coag-negative staph. This is likely a contaminant. Progress note dated 09/26/2022. 77-year-old male seen a few days ago in consultation. He has a history of diabetes, anxiety, obesity, pseudomonas pneumonia, and previous ventilator dependent respiratory failure requiring tracheostomy and its subsequent removal. He was admitted with a diagnosis of COPD exacerbation. Currently, the patient's on 3 L of oxygen. He's not receiving any IV fluids and he is laying i n bed sleeping on his right side. No recent blood work ordered. Sputum showing evidence of Pseudomonas. In addition, blood cultures from September 20 showed evidence of Staphylococcus auricularis. The patient continues on vancomycin. The recent chest x-ray shows some right lower lobe atelectasis or infiltrate, and a small right-sided pleural effusion. Progress note dated 09/27/2022. 77-year-old male seen in room 637. Currently, he's on 3 L of oxygen. He looks about the same today as he did yesterday. The patient is not receiving any IV fluids. He was initially sleeping when I entered the room. He is not manifesting any signs or symptoms of respiratory distress. There is no convers ational dyspnea, use of accessory muscles, or audible wheezing. Sodium 138, potassium 4.6, chlorides 92, CO2 42, BUN 27, creatinine 0.62. Sputum showing evidence of Pseudomonas aeruginosa, and Pseudomonas fluorescens. The patient was started on cefepime as per infectious diseases. Objective - Vital Signs Vital signs: Vital Signs Temp 98.0 F 09/27/22 07:22 Pulse 84 09/27/22 12:09 Resp 20 09/27/22 07:22 BP 130/61 09/27/22 07:22 Pulse Ox 95 09/27/22 07:22 FiO2 Intake & Output 09/26/22 09/27/22 09/27/22 18:59 06:59 18:59 Intake Total 354 Output Total 275 Balance 354 -275 Intake: Oral 354 Output: Urine 275 Other: Voiding Method Urinal Urinal - Exam No acute distress, oriented 3. No audible wheezing, or use of accessory muscles. Nasal O2 noted. HEENT examination is grossly unremarkable. Neck supple. Full range of motion. No adenopathy thyromegaly or neck vein distention. Cardiovascular examination reveals regular rhythm rate. S1-S2 normal. No S3 or S4. No discernible murmur noted. Heart rate 84 bpm. Lungs reveal scattered bilateral expiratory wheezes. Breath sounds are equal bilaterally. Breath sounds are severely diminished throughout. No crackles. Abdomen soft bowel sounds are heard. No masses or tenderness. Extremities are intact. No cyanosis or clubbing. Trace edema present. Skin is without rash or lesion. Neurologic examination is brief but nonfocal. - Labs CBC & Chem 7: 09/23/22 07:21 09/27/22 05:14 Labs: Abnormal Lab Results - Last 24 Hours (Table) 09/26/22 09/26/22 09/27/22 Range/Units 16:23 20:10 05:14 Chloride 92 L (98-107) mmol/L Carbon Dioxide 42 H* (22-30) mmol/L BUN 27 H (9-20) mg/dL Creatinine 0.62 L (0.66-1.25) mg/dL Glucose 109 H (74-99) mg/dL POC Glucose (mg/dL) 149 H 243 H (70-110) mg/dL Calcium 8.0 L (8.4-10.2) mg/dL Microbiology - Last 24 Hours (Table) 09/23/22 20:36 Gram Stain - Final Sputum Sputum Culture - Final Pseudomonas aeruginosa Pseudomonas fluorescens/putida 09/23/22 14:47 Blood Culture - Preliminary Blood No Growth after 72 hours 09/23/22 14:47 Blood Culture - Preliminary Blood No Growth after 72 hours 09/22/22 12:09 Blood Culture - Preliminary Blood No Growth after 96 hours Assessment and Plan Assessment: Acute on chronic hypoxemic respiratory failure secondary to an acute exacerbation of chronic obstructive pulmonary disease. Possible pseudomonas aeruginosa pneumonia, right lower lobe. Severe oxygen dependent chronic obstructive pulmonary disease. History of heavy tobacco dependence. History of pseudomonas pneumonia requiring mechanical ventilation with inability to wean and subsequent tracheostomy tube placement and removal. Acquired tracheocutaneous fistula. History of general anxiety disorder. Diabetes mellitus, type II. Plan: Plan dated 09/22/2022. The patient's on 4 L of oxygen. He looks well comfortable. The patient states that he is feeling better. He was placed on albuterol sulfate, and ipratropium bromide, 4 times a day and when necessary. In addition, he is receiving formoterol 20 g, and budesonide 1 mg, twice a day. Also, the patient is on Solu-Medrol, 60 mg IV push, every 6 hours. He also continues on theophylline. We will continue to follow the patient make recommendations along the way. Prognosis is guarded. Labs, x-rays, and medications are all reviewed. Plan dated 09/26/2022. Given the results of the sputum on September 23, and his prior history of pseudomonas pneumonia, infectious diseases should be consulted for advice as to proper antibiotic treatment. The patient continues on vancomycin at the current time. He is on 3 L of oxygen. He looks relatively comfortable. His other medications are appropriate. Labs, x-rays, medications are reviewed. Prognosis is guarded. Plan dated 09/27/2022. The patient has evidence of Pseudomonas, 2 different species in his sputum. The patient is currently on cefepime as per infectious diseases. Clinically, the p atient is stable. The patient remains on 3 L. The patient should be treated in outpatient, and a PICC line/midline should be inserted as soon as possible. The longer he stays in the hospital, the more likely he is going to have a nosocomial complication. Additional recommendations and suggestions are forthcoming. Time with Patient: Less than 30
[2022-09-27 12:19] LABS: Glucose,Whole Blood 111 mg/dL (70-110)
--- NOTE | 2022-09-27 16:57 | P.PN ---
Progress Note - Text Progress Note Date: 09/27/22 Chief Complaint: Short of breath This is a pleasant 77-year-old patient who follows with Dr. 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 Patient able to get around the house without any shaw pport. Patient presents with 4 days of worsening shortness of breath. Slight cough which is quite his baseline. Little phlegm if any. No fever no chills. No edema. Appetite is fair. Tired. Rundown. Admitted with COPD exacerbation. Admitted with COPD exacerbation and acute hypoxic/hypercapnic respiratory failure. 09/21/2022: Sitting at the edge bed. Remains short of breath. Coughing or sp utum. Oral intake fair. Awaiting input from pulmonary. Add theophylline 300 mg daily at bedtime 09/22/2022: Sitting at the edge of the bed.started on theophylline last night. Breathing Dose of IV Solu-Medrol increased yesterday. better. Some sputum. Oral intake fair. 09/23/2022: Sitting at edge bed. Breathing slowly improving. Better short of breath. On IV Solu-Medrol. Eating well. September 24 2022: Breathing better. Less cough. Cutback IV Solu-Medrol to 40 mg every 8. Continue other medications. Discussed with the patient and correctional case manager. They'll arrange for transport to go home tomorrow. 09/25/2022: Patient blood cultures have been positive for Staphylococcus auricularis-possibly contaminant. On IV vancomycin. Consult ID. Hold off discharge for now. Breathing better. 09/26/2022: Patient's repeat blood cultures are negative. Sputum culture growing Pseudomonas from his tracheostomy site.. Starting IV cefepime. Vancomycin discontinued. Eating fair. 09/27/2022: Patient was seen this morning. Getting IV cefepime. Comfortable. Oral intake good. Active Medications Acetaminophen (Acetaminophen Tab 325 Mg Tab) 650 mg PO Q6HR PRN PRN Reason: Mild Pain or Fever > 100.5 Albuterol/Ipratropium (Ipratropium-Albuterol 3 Ml Neb) 3 ml INHALATION RT-Q4H AKIKO Last Admin: 09/27/22 16:15 Dose: 3 ml Alprazolam (Alprazolam 0.5 Mg Tab) 0.5 mg PO BID PRN PRN Reason: Anxiety Last Admin: 09/27/22 09:23 Dose: 0.5 mg Alprazolam (Alprazolam 0.5 Mg Tab) 0.5 mg PO HS [facility] Last Admin: 09/26/22 20:30 Dose: 0.5 mg Atorvastatin Calcium (Atorvastatin 20 Mg Tab) 20 mg PO HS [facility] Last Admin: 09/26/22 20:30 Dose: 20 mg Budesonide/Formoterol Fumarate (Symbicort 160-4.5 Mcg Inhaler) 2 puff INHALATION RT-BID [facility] Calcium Carbonate/Glycine (Calcium Carbonate 500 Mg Chewable) 1,000 mg PO Q4HR PRN PRN Reason: Dyspepsia Dextrose/Water (Dextrose 50% Syringe 50 Ml) 25 ml IVP PER PROTOCOL PRN; Protocol PRN Reason: Hypoglycemia Dextrose/Water (Dextrose 50% Syringe 50 Ml) 50 ml IVP PER PROTOCOL PRN; Protocol PRN Reason: Hypoglycemia Diltiazem HCl (Diltiazem Cd 120 Mg Cap.Er.24h) 120 mg PO DAILY [facility] Last Admin: 09/27/22 09:17 Dose: 120 mg Enoxaparin Sodium (Enoxaparin 40 Mg/0.4 Ml Syringe) 40 mg SQ DAILY [facility] Last Admin: 09/27/22 09:18 Dose: 40 mg Cefepime HCl 2 gm/ Sodium (Chloride) 100 mls @ 25 mls/hr IVPB Q8HR [facility]; Protocol Last Admin: 09/27/22 15:03 Dose: 25 mls/hr Insulin Aspart (Insulin Aspart (Novolog) 100 Unit/Ml Vial) 0 unit SQ AC-TID [facility]; Protocol Last Admin: 09/27/22 12:21 Dose: Not Given Insulin Aspart (Insulin Aspart (Novolog) 100 Unit/Ml Vial) 0 unit SQ ACHS [facility]; Protocol Last Admin: 09/27/22 12:22 Dose: Not Given Insulin Detemir (Insulin Detemir (Levemir) 100 Unit/Ml Syr) 8 unit SQ DAILY@0700 [facility] Last Admin: 09/27/22 09:18 Dose: 8 unit Lactulose (Lactulose 20 Gm/30 Ml Cup) 20 gm PO DAILY PRN PRN Reason: Constipation Metformin HCl (Metformin 500 Mg Tab) 500 mg PO BID-W/MEALS [facility] Last Admin: 09/27/22 09:19 Dose: 500 mg Naloxone HCl (Naloxone 0.4 Mg/Ml 1 Ml Vial) 0.2 mg IV Q2M PRN PRN Reason: Opioid Reversal Ondansetron HCl (Ondansetron 4 Mg/2 Ml Vial) 4 mg IVP Q8HR PRN PRN Reason: Nausea And Vomiting Prednisone (Prednisone 20 Mg Tab) 40 mg PO DAILY [facility] Last Admin: 09/27/22 09:18 Dose: 40 mg Theophylline (Theophylline 24 Hour 300 Mg Cap.Er.24h) 300 mg PO HS [facility] Last Admin: 09/26/22 20:30 Dose: 300 mg Past medical history to include: Anxiety, COPD, hyperlipidemia, diabetes, hypertension Social history: This is his brother. Stop smoking 7 years ago, smoked for about 60 years was smoking up to 3 packs a day. 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 Physical examination: VITAL SIGNS: 98, 83, 20, 1:30/61, 95% on 2.5 L GENERAL: Declining, comfortable tattoos EYES: Pupils equal. Conjunctiva normal. HEENT: External appearance of nose and ears normal, oral cavity grossly normal. Tracheostomy site covered with gauze NECK: JVD not raised; masses not palpable. HEART: First and second heart sounds are normal; no edema. LUNGS:Respiratory rate normal diminished breath sounds ABDOMEN: Soft, nontender, liver spleen not palpable, no masses palpable. PSYCH: Alert and oriented x3; mood and affect slightly anxious MUSCULOSKELETAL:No Clubbing/cyanosis;muscles-grossly intact, evidence of OA INVESTIGATIONS, reviewed in the clinical context: 09/27/2022: Potassium 4.6 bicarbonate 42 creatinine 0.62 Sputum culture: Pseudomonas Blood culture [September 20]: Staphylococcus auricularis, September 23: WBC 12.9 hemoglobin 11.6 potassium 4.6 creatinine 0.67 Venous gases: PCO2 is 76 bicarbonate 43 pH 7.36 WBC 10.9 hemoglobin 13.2 platelets 240 sodium 139 potassium 4.6 bicarbonate 41 BUN 22 creatinine 0.58 lactic acid 3.8 Troponin I less than 0.012 COVID 19/influenza type A/influenza type B: Not detected EKG tracing personally reviewed by me: Normal sinus rhythm. Chest x-ray film personally reviewed by me-hyperinflation, prominent pulmonary artery Assessment and plan: -Acute exacerbation of severe steroid-dependent COPD in a previous smoker: Better DuoNeb every 4, IV Solu-Medrol, changed to oral prednisone, nebulized Perf oromist and nebulized steroids. theophylline 300 mg daily at bedtime -Pseudomonas pneumonia IV cefepime -Acute on chronic hypoxic and hypercapnic type II respiratory failure from COPD Baseline oxygen is 3 L, -Blood culture positive for Staphylococcus auricularis, possibly contaminant. *Vancomycin. Seen by ID -Anxiety not otherwise specified Xanax when necessary -Hyperlipidemia Lipitor -Diabetes mellitus type 2, chronically on oral hypoglycemic, uncontrolled with hyperglycemia secondary to steroids Follow Accu-Cheks with sliding scale. Decrease Levemir 8 units subcu daily. Metformin -Essential hypertension Cardizem -Full code Oral prednisone. Pseudomonas in the sputum. IV cefepime. Will DC Levemir. Discharged either today or tomorrow.
[2022-09-27 17:26] LABS: Glucose,Whole Blood 285 mg/dL (70-110)
[2022-09-27 20:25] LABS: Glucose,Whole Blood 260 mg/dL (70-110)
[2022-09-27] MEDS: THEOPHYLLINE 24 HOUR 300 MG CAP.ER.24H PO SCH (21:02)
[2022-09-27] MEDS: ALPRAZolam 0.5 MG TAB PO SCH (21:02)
[2022-09-27] MEDS: ATORVASTATIN 20 MG TAB PO SCH (21:02)
[2022-09-27] MEDS: SYMBICORT 160-4.5 MCG INHALER INHALATION SCH ×2 (21:12→23:57)
[2022-09-28] MEDS: CEFEPIME 2 GM in SODIUM CHLORIDE 0.9% 100 ML IVPB SCH ×3 (00:30→18:03)
[2022-09-28] MEDS: IPRATROPIUM-ALBUTEROL 3 ML NEB INHALATION SCH ×5 (09:47→19:08)
[2022-09-28] MEDS: SYMBICORT 160-4.5 MCG INHALER INHALATION SCH ×2 (09:48→19:08)
[2022-09-28] MEDS: INSULIN ASPART (NovoLOG) 100 UNIT/ML VIAL SQ SCH ×7 (10:51→20:54)
[2022-09-28] MEDS: metFORMIN 500 MG TAB PO SCH ×2 (10:51→17:51)
[2022-09-28] MEDS: DILTIAZEM CD 120 MG CAP.ER.24H PO SCH (10:52)
[2022-09-28] MEDS: ENOXAPARIN 40 MG/0.4 ML SYRINGE SQ SCH (10:52)
[2022-09-28] MEDS: predniSONE 20 MG TAB PO SCH (10:52)
[2022-09-28 11:37] LABS: Glucose,Whole Blood 85 mg/dL (70-110)
[2022-09-28 11:37] LABS: Glucose,Whole Blood 75 mg/dL (70-110)
--- NOTE | 2022-09-28 12:00 | P.PN ---
Subjective Progress Note Date: 09/28/22 Principal diagnosis: Shortness of breath. This is a 77-year-old male patient with a history of diabetes mellitus, general anxiety disorder, obesity, previous pseudomonas pneumonias with previous ventilatory dependent respiratory failure requiring tracheostomy and subsequent removal in 2011. He also has severe oxygen dependent chronic obstructive pulmonary disease maintained on home oxygen at 3 L. He is Trelegy, DuoNeb inhalations and albuterol HFA. He is also steroid dependent and is on 5 mg daily. He does have been required transcutaneous fistula with a dressing over his anterior neck. He was a heavy smoker for many years starting at the age of 10. Quit about 10 years ago. He presented to the emergency room with a three- day history of increasing shortness of breath cough or congestion. He had titrated up his oxygen to 5 L without much improvement. His saturations were still in the 80s. Denied any sick contacts. No known exposure to cold or flu. Chest x-ray shows no acute pulmonary process. White count 10.9. Hemoglobin 13.2. Sodium 139. Potassium 4.6. Bicarb 41. BUN 22. Creatinine 0.58. Glucose 247. AST 20. ALT 16. Troponin negative 1. Yao virus not detected. Influenza screen negative. He's been initiated on theophylline, DuoNeb inhalations, Pulmicort and Perforomist inhalations, Solu-Medrol. He is seen today in consultation on the selective care unit. He is currently resting comfortably in bed. Awake and alert in no acute distress. Maintaining O2 saturations in the 90s on 3 L/m per nasal cannula. He's been afebrile. H emodynamically stable. Progress note dated 09/22/2022. The patient is seen today in room 382. We saw the patient yesterday in consultation. He was minute with a diagnosis of COPD exacerbation. He has an extensive history including diabetes, anxiety, obesity, pseudomonas pneumonia, ventilator dependent respiratory failure, tracheostomy, and subsequent decannulation. He also has chronic hypoxemic respiratory failure, and uses home oxygen at 3 L, 16/06. Currently, he is on 4 L of oxygen. He is not receiving any IV fluids. He actually states that he's feeling a bit better today. He was placed on usual medications. No new labs today other than a creatinine 0.64, and a glucose of 172. Blood cultures are positive for coag-negative staph. This is likely a contaminant. Progress note dated 09/26/2022. 77-year-old male seen a few days ago in consultation. He has a history of diabetes, anxiety, obesity, pseudomonas pneumonia, and previous ventilator dependent respiratory failure requiring tracheostomy and its subsequent removal. He was admitted with a diagnosis of COPD exacerbation. Currently, the patient's on 3 L of oxygen. He's not receiving any IV fluids and he is laying i n bed sleeping on his right side. No recent blood work ordered. Sputum showing evidence of Pseudomonas. In addition, blood cultures from September 20 showed evidence of Staphylococcus auricularis. The patient continues on vancomycin. The recent chest x-ray shows some right lower lobe atelectasis or infiltrate, and a small right-sided pleural effusion. Progress note dated 09/27/2022. 77-year-old male seen in room 637. Currently, he's on 3 L of oxygen. He looks about the same today as he did yesterday. The patient is not receiving any IV fluids. He was initially sleeping when I entered the room. He is not manifesting any signs or symptoms of respiratory distress. There is no convers ational dyspnea, use of accessory muscles, or audible wheezing. Sodium 138, potassium 4.6, chlorides 92, CO2 42, BUN 27, creatinine 0.62. Sputum showing evidence of Pseudomonas aeruginosa, and Pseudomonas fluorescens. The patient was started on cefepime as per infectious diseases. Progress note dated 09/26/2022. 77-year-old male seen again in room 637. He remains on 3 L of oxygen. The bronwyn ent is not receiving any IV fluids. He is hoping to be discharged home soon. He denies any worsening shortness of breath, cough, wheezing, or phlegm production. No new labs today other glucose 75. Sputum sampling from September 23 shows 2 different species of Pseudomonas. Chest x-ray from September 26 has been reviewed. The patient remains on cefepime as per infectious diseases. Objective - Vital Signs Vital signs: Vital Signs Temp 98.1 F 09/28/22 08:10 Pulse 90 09/28/22 08:10 Resp 20 09/28/22 08:10 BP 129/75 09/28/22 08:10 Pulse Ox 93 L 09/28/22 08:10 FiO2 Intake & Output 09/27/22 09/28/22 09/28/22 18:59 06:59 18:59 Other: Voiding Method Urinal Urinal - Exam No acute distress, oriented 3. No audible wheezing, or use of accessory muscles. Currently, patient on 3 L. Saturation is 93%. HEENT examination is grossly unremarkable. Neck supple. Full range of motion. No adenopathy thyromegaly or neck vein distention. Cardiovascular examination reveals regular rhythm rate. S1-S2 normal. No S3 or S4. No discernible murmur noted. Heart rate 90 bpm. Lungs reveal scattered bilateral expiratory wheezes. Breath sounds are equal bilaterally. Breath sounds are severely diminished throughout. No crackles. Abdomen soft bowel sounds are heard. No masses or tenderness. Extremities are intact. No cyanosis or clubbing. Trace edema present. Skin is without rash or lesion. Neurologic examination is brief but nonfocal. - Labs CBC & Chem 7: 09/23/22 07:21 09/27/22 05:14 Labs: Abnormal Lab Results - Last 24 Hours (Table) 09/27/22 09/27/22 09/27/22 Range/Units 12:15 17:24 20:24 POC Glucose (mg/dL) 111 H 285 H 260 H (70-110) mg/dL Microbiology - Last 24 Hours (Table) 09/23/22 14:47 Blood Culture - Preliminary Blood No Growth after 96 hours 09/23/22 14:47 Blood Culture - Preliminary Blood No Growth after 96 hours 09/22/22 12:09 Blood Culture - Preliminary Blood No Growth after 120 hours 09/23/22 20:36 Gram Stain - Final Sputum Sputum Culture - Final Pseudomonas aeruginosa Pseudomonas fluorescens/putida Assessment and Plan Assessment: Acute on chronic hypoxemic respiratory failure secondary to an acute exacerbation of chronic obstructive pulmonary disease. Possible pseudomonas aeruginosa pneumonia, right lower lobe. Severe oxygen dependent chronic obstructive pulmonary disease. History of heavy tobacco dependence. History of pseudomonas pneumonia requiring mechanical ventilation with inability to wean and subsequent tracheostomy tube placement and removal. Acquired tracheocutaneous fistula. History of general anxiety disorder. Diabetes mellitus, type II. Plan: Plan dated 09/22/2022. The patient's on 4 L of oxygen. He looks well comfortable. The patient states that he is feeling better. He was placed on albuterol sulfate, and ipratropium bromide, 4 times a day and when necessary. In addition, he is receiving formoterol 20 g, and budesonide 1 mg, twice a day. Also, the patient is on Solu-Medrol, 60 mg IV push, every 6 hours. He also continues on theophylline. We will continue to follow the patient make recommendations along the way. Prognosis is guarded. Labs, x-rays, and medications are all reviewed. Plan dated 09/26/2022. Given the results of the sputum on September 23, and his prior history of pseudomonas pneumonia, infectious diseases should be consulted for advice as to proper antibiotic treatment. The patient continues on vancomycin at the current time. He is on 3 L of oxygen. He looks relatively comfortable. His other medications are appropriate. Labs, x-rays, medications are reviewed. Prognosis is guarded. Plan dated 09/27/2022. The patient has evidence of Pseudomonas, 2 different species in his sputum. The patient is currently on cefepime as per infectious diseases. Clinically, the patient is stable. The patient remains on 3 L. The patient should be treated in outpatient, and a PICC line/midline should be inserted as soon as possible. The longer he stays in the hospital, the more likely he is going to have a nosocomial complication. Additional recommendations and suggestions are f orthcoming. Plan dated 09/28/2022. The patient remains on cefepime for his Pseudomonas pulmonary infection. He is on 3 L. Appears very stable. He would like to be discharged home if possible. We'll leave that up to the primary service. The patient will need a prednisone burst and taper on discharge, likely 40 or 50 mg a day, for 4 or 5 days, reducing the dose by 10 mg after the fourth or fifth day. Additional recommendations and suggestions are forthcoming. Vancomycin was discontinued. Labs, x-rays and medications are reviewed. Prognosis is very guarded. Time with Patient: Less than 30
[2022-09-28 12:47] LABS: Glucose,Whole Blood 120 mg/dL (70-110)
[2022-09-28 17:11] LABS: Glucose,Whole Blood 203 mg/dL (70-110)
--- NOTE | 2022-09-28 18:30 | P.PN ---
Progress Note - Text Progress Note Date: 09/28/22 Chief Complaint: Short of breath This is a pleasant 77-year-old patient who follows with Dr. Valiente as his PCP and Dr. Raymond as his platform stapler. 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 Patient able to get around the house without any shaw pport. Patient presents with 4 days of worsening shortness of breath. Slight cough which is quite his baseline. Little phlegm if any. No fever no chills. No edema. Appetite is fair. Tired. Rundown. Admitted with COPD exacerbation. Admitted with COPD exacerbation and acute hypoxic/hypercapnic respiratory failure. 09/21/2022: Sitting at the edge bed. Remains short of breath. Coughing or sp utum. Oral intake fair. Awaiting input from pulmonary. Add theophylline 300 mg daily at bedtime 09/22/2022: Sitting at the edge of the bed.started on theophylline last night. Breathing Dose of IV Solu-Medrol increased yesterday. better. Some sputum. Oral intake fair. 09/23/2022: Sitting at edge bed. Breathing slowly improving. Better short of breath. On IV Solu-Medrol. Eating well. September 24 2022: Breathing better. Less cough. Cutback IV Solu-Medrol to 40 mg every 8. Continue other medications. Discussed with the patient and bilingual patient support caseworker. They'll arrange for transport to go home tomorrow. 09/25/2022: Patient blood cultures have been positive for Staphylococcus auricularis-possibly contaminant. On IV vancomycin. Consult ID. Hold off discharge for now. Breathing better. 09/26/2022: Patient's repeat blood cultures are negative. Sputum culture growing Pseudomonas from his tracheostomy site.. Starting IV cefepime. Vancomycin discontinued. Eating fair. 09/27/2022: Patient was seen this morning. Getting IV cefepime. Comfortable. Oral intake good. 09/28/2022: Tolerating diet. Breathing stable. There was a problem with patient's pharmacy and transport has discharg could not occur Active Medications Acetaminophen (Acetaminophen Tab 325 Mg Tab) 650 mg PO Q6HR PRN PRN Reason: Mild Pain or Fever > 100.5 Albuterol/Ipratropium (Ipratropium-Albuterol 3 Ml Neb) 3 ml INHALATION RT-Q4H AKIKO Last Admin: 09/28/22 15:13 Dose: Not Given Alprazolam (Alprazolam 0.5 Mg Tab) 0.5 mg PO BID PRN PRN Reason: Anxiety Last Admin: 09/27/22 09:23 Dose: 0.5 mg Alprazolam (Alprazolam 0.5 Mg Tab) 0.5 mg PO HS [facility] Last Admin: 09/27/22 21:02 Dose: 0.5 mg Atorvastatin Calcium (Atorvastatin 20 Mg Tab) 20 mg PO HS [facility] Last Admin: 09/27/22 21:02 Dose: 20 mg Budesonide/Formoterol Fumarate (Symbicort 160-4.5 Mcg Inhaler) 2 puff INHALATION RT-BID [facility] Last Admin: 09/28/22 09:48 Dose: Not Given Calcium Carbonate/Glycine (Calcium Carbonate 500 Mg Chewable) 1,000 mg PO Q4HR PRN PRN Reason: Dyspepsia Dextrose/Water (Dextrose 50% Syringe 50 Ml) 25 ml IVP PER PROTOCOL PRN; Protocol PRN Reason: Hypoglycemia Dextrose/Water (Dextrose 50% Syringe 50 Ml) 50 ml IVP PER PROTOCOL PRN; Protocol PRN Reason: Hypoglycemia Diltiazem HCl (Diltiazem Cd 120 Mg Cap.Er.24h) 120 mg PO DAILY [facility] Last Admin: 09/28/22 10:52 Dose: Not Given Enoxaparin Sodium (Enoxaparin 40 Mg/0.4 Ml Syringe) 40 mg SQ DAILY [facility] Last Admin: 09/28/22 10:52 Dose: Not Given Cefepime HCl 2 gm/ Sodium (Chloride) 100 mls @ 25 mls/hr IVPB Q8HR AKIKO; Prot ocol Last Admin: 09/28/22 18:03 Dose: 25 mls/hr Insulin Aspart (Insulin Aspart (Novolog) 100 Unit/Ml Vial) 0 unit SQ AC-TID [facility]; Protocol Last Admin: 09/28/22 17:52 Dose: 4 unit Insulin Aspart (Insulin Aspart (Novolog) 100 Unit/Ml Vial) 0 unit SQ ACHS [facility]; Protocol Last Admin: 09/28/22 13:43 Dose: Not Given Lactulose (Lactulose 20 Gm/30 Ml Cup) 20 gm PO DAILY PRN PRN Reason: Constipation Metformin HCl (Metformin 500 Mg Tab) 500 mg PO BID-W/MEALS [facility] Last Admin: 09/28/22 17:51 Dose: 500 mg Naloxone HCl (Naloxone 0.4 Mg/Ml 1 Ml Vial) 0.2 mg IV Q2M PRN PRN Reason: Opioid Reversal Ondansetron HCl (Ondansetron 4 Mg/2 Ml Vial) 4 mg IVP Q8HR PRN PRN Reason: Nausea And Vomiting Prednisone (Prednisone 20 Mg Tab) 40 mg PO DAILY [facility] Last Admin: 09/28/22 10:52 Dose: Not Given Theophylline (Theophylline 24 Hour 300 Mg Cap.Er.24h) 300 mg PO HS [facility] Last Admin: 09/27/22 21:02 Dose: 300 mg Past medical history to include: Anxiety, COPD, hyperlipidemia, diabetes, hypertension Social history: This is his brother. Stop smoking 7 years ago, smoked for about 60 years was smoking up to 3 packs a day. 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 Physical examination: VITAL SIGNS: 97.8, 92, 18, 119/61, 94% on 3 daughters GENERAL: Sitting up comfortable tattoos EYES: Pupils equal. Conjunctiva normal. HEENT: External appearance of nose and ears normal, oral cavity grossly normal. Tracheostomy site covered with gauze NECK: JVD not raised; masses not palpable. HEART: First and second heart sounds are normal; no edema. LUNGS:Respiratory rate normal diminished breath sounds ABDOMEN: Soft, nontender, liver spleen not palpable, no masses palpable. PSYCH: Alert and oriented x3; mood and affect slightly anxious MUSCULOSKELETAL:No Clubbing/cyanosis;muscles-grossly intact, evidence of OA INVESTIGATIONS, reviewed in the clinical context: 09/27/2022: Potassium 4.6 bicarbonate 42 creatinine 0.62 Sputum culture: Pseudomonas Blood culture [September 20]: Staphylococcus auricularis, September 23: WBC 12.9 hemoglobin 11.6 potassium 4.6 creatinine 0.67 Venous gases: PCO2 is 76 bicarbonate 43 pH 7.36 WBC 10.9 hemoglobin 13.2 platelets 240 sodium 139 potassium 4.6 bicarbonate 41 BUN 22 creatinine 0.58 lactic acid 3.8 Troponin I less than 0.012 COVID 19/influenza type A/influenza type B: Not detected EKG tracing personally reviewed by me: Normal sinus rhythm. Chest x-ray film personally reviewed by me-hyperinflation, prominent pulmonary artery Assessment and plan: -Acute exacerbation of severe steroid-dependent COPD in a previous smoker: Better DuoNeb every 6, oral prednisone, Symbicort theophylline 300 mg daily at bedtime -Pseudomonas aeruginosa pneumonia IV cefepime. To be discharged on ciprofloxacin. -Acute on chronic hypoxic and hypercapnic type II respiratory failure from COPD: Better Baseline oxygen is 3 L, -Blood culture positive for Staphylococcus auricularis, - contaminant. *Vancomycin. Seen by ID -Anxiety not otherwise specified Xanax when necessary -Hyperlipidemia Lipitor -Diabetes mellitus type 2, chronically on oral hypoglycemic, Follow Accu-Cheks with sliding scale. Stop Levemir. Metformin -Essential hypertension Cardizem -Full code Oral prednisone. Pseudomonas in the sputum. IV cefepime. Discharge was held as there is a problem with patient's pharmacy in transport. As a nurse informed me.
[2022-09-28 20:16] LABS: Glucose,Whole Blood 149 mg/dL (70-110)
[2022-09-28] MEDS: ATORVASTATIN 20 MG TAB PO SCH (20:56)
[2022-09-28] MEDS: THEOPHYLLINE 24 HOUR 300 MG CAP.ER.24H PO SCH (20:56)
[2022-09-28] MEDS: ALPRAZolam 0.5 MG TAB PO SCH (20:56)
[2022-09-29] MEDS: CEFEPIME 2 GM in SODIUM CHLORIDE 0.9% 100 ML IVPB SCH ×3 (00:35→15:36)
--- NOTE | 2022-09-29 00:36 | P.PN ---
Subjective Progress Note Date: 09/26/22 Principal diagnosis: Positive blood culture and a question of pneumonia Patient is a 77 year male with multiple comorbidities including COPD presented to hospital because of shortness of breath patient did have a positive blood culture finalized as coagulase negative staph sputum is now showing gram- negative. On today's evaluation that is 09/26/2022, the patient denies having any fever or discomfort has been complaining of some right lower chest pain the patient con tinued to have a cough with occasional sputum and no nausea no vomiting no abdominal pain or diarrhea Objective - Vital Signs Vital signs: Vital Signs Temp 98.0 F 09/26/22 08:00 Pulse 101 H 09/26/22 08:41 Resp 20 09/26/22 08:00 BP 139/73 09/26/22 08:00 Pulse Ox 97 09/26/22 08:26 FiO2 Intake & Output 09/25/22 09/26/22 09/26/22 18:59 06:59 18:59 Intake Total 236 Output Total 250 Balance -250 236 Weight 77.111 kg Intake: Oral 236 Output: Urine 250 Other: Voiding Method Urinal Urinal Urinal - Exam GENERAL DESCRIPTION: An elderly male lying in bed in no distress RESPIRATORY SYSTEM: Unlabored breathing , decreased breath sounds at bases HEART: S1 S2 regular rate and rhythm , ABDOMEN: Soft , no tenderness EXTREMITIES: No edema feet - Labs CBC & Chem 7: 09/23/22 07:21 09/27/22 05:14 Labs: Abnormal Lab Results - Last 24 Hours (Table) 09/25/22 09/25/22 09/26/22 Range/Units 16:20 20:05 06:17 POC Glucose (mg/dL) 193 H 195 H 136 H (70-110) mg/dL Microbiology - Last 24 Hours (Table) 09/23/22 20:36 Gram Stain - Preliminary Sputum Sputum Culture - Preliminary Pseudomonas aeruginosa 09/23/22 14:47 Blood Culture - Preliminary Blood No Growth after 48 hours 09/23/22 14:47 Blood Culture - Preliminary Blood No Growth after 48 hours 09/22/22 12:09 Blood Culture - Preliminary Blood No Growth after 72 hours 09/20/22 15:01 Blood Culture Gram Stain - Final Blood Blood Culture - Final Staphylococcus auricularis Assessment and Plan (1) Positive blood culture Current Visit: Yes Status: Acute Code(s): R78.81 - BACTEREMIA SNOMED C ode(s): 285734856 (2) Pneumonia Current Visit: No Status: Acute Code(s): J18.9 - PNEUMONIA, UNSPECIFIED ORGANISM SNOMED Code(s): 167941920 Plan: 1patient with a positive blood culture with Staphylococcus auricularis in this patient presented to hospital predominantly with respiratory symptoms and was concern for possible tracheobronchitis patient did not have any fever or elevated white count on admission chest x-ray was negative question of possible skin contamination . 2blood cultures has been repeated document clearance of bacteremia. 3sputum is showing gram-negative chest x-ray sputum is growing gram-negative, chest x-ray with a right lower lobe infiltrate question of pneumonia 4we will discontinue vancomycin start the patient on cefepime while waiting for the ID sensitivity on the gram-negative Time with Patient: Less than 30
--- NOTE | 2022-09-29 00:44 | P.PN ---
Subjective Progress Note Date: 09/27/22 Principal diagnosis: Positive blood culture and a question of pneumonia Patient is a 77 year male with multiple comorbidities including COPD presented to hospital because of shortness of breath patient did have a positive blood culture finalized as coagulase negative staph sputum is now showing gram- negative. On today's evaluation that is 09/27/2022, the patient continues to be afebrile, patient complaining of right lower chest pain the patient continued to have a c ough with occasional sputum production the patient denies nausea no vomiting no abdominal pain or diarrhea Objective - Vital Signs Vital signs: Vital Signs Temp 98.0 F 09/27/22 07:22 Pulse 84 09/27/22 12:09 Resp 20 09/27/22 07:22 BP 130/61 09/27/22 07:22 Pulse Ox 95 09/27/22 07:22 FiO2 Intake & Output 09/26/22 09/27/22 09/27/22 18:59 06:59 18:59 Intake Total 354 Output Total 275 Balance 354 -275 Intake: Oral 354 Output: Urine 275 Other: Voiding Method Urinal Urinal - Exam GENERAL DESCRIPTION: An elderly male lying in bed in no distress RESPIRATORY SYSTEM: Unlabored breathing , decreased breath sounds at bases HEART: S1 S2 regular rate and rhythm , ABDOMEN: Soft , no tenderness EXTREMITIES: No edema feet - Labs CBC & Chem 7: 09/23/22 07:21 09/27/22 05:14 Labs: Abnormal Lab Results - Last 24 Hours (Table) 09/26/22 09/26/22 09/27/22 Range/Units 16:23 20:10 05:14 Chloride 92 L (98-107) mmol/L Carbon Dioxide 42 H* (22-30) mmol/L BUN 27 H (9-20) mg/dL Creatinine 0.62 L (0.66-1.25) mg/dL Glucose 109 H (74-99) mg/dL POC Glucose (mg/dL) 149 H 243 H (70-110) mg/dL Calcium 8.0 L (8.4-10.2) mg/dL 09/27/22 Range/Units 12:15 Chloride (98-107) mmol/L Carbon Dioxide (22-30) mmol/L BUN (9-20) mg/dL Creatinine (0.66-1.25) mg/dL Glucose (74-99) mg/dL POC Glucose (mg/dL) 111 H (70-110) mg/dL Calcium (8.4-10.2) mg/dL Microbiology - Last 24 Hours (Table) 09/23/22 20:36 Gram Stain - Final Sputum Sputum Culture - Final Pseudomonas aeruginosa Pseudomonas fluorescens/putida 09/23/22 14:47 Blood Culture - Preliminary Blood No Growth after 72 hours 09/23/22 14:47 Blood Culture - Preliminary Blood No Growth after 72 hours 09/22/22 12:09 Blood Culture - Preliminary Blood No Growth after 96 hours Assessment and Plan (1) Positive blood culture Current Visit: Yes Status: Acute Code(s): R78.81 - BACTEREMIA SNOMED Code(s): 747755574 (2) Pneumonia Current Visit: No Status: Acute Code(s): J18.9 - PNEUMONIA, UNSPECIFIED ORGANISM SNOMED Code(s): 476580845 Plan: 1patient with a positive blood culture with Staphylococcus auricularis in this patient presented to hospital predominantly with respiratory symptoms and was concern for possible tracheobronchitis patient did not have any fever or elevated white count on admission chest x-ray was negative question of possible skin contamination . 2blood cultures has been repeated which has been negative so far. 3sputum has been finalized with Pseudomonas chest x-ray sputum is growing gram- negative, chest x-ray with a right lower lobe infiltrate question of pneumonia 4patient to continue with the cefepime finishing therapy with a short course of oral Cipro Time with Patient: Less than 30
--- NOTE | 2022-09-29 00:46 | P.PN ---
Subjective Progress Note Date: 09/28/22 Principal diagnosis: Positive blood culture and a question of pneumonia Patient is a 77 year male with multiple comorbidities including COPD presented to hospital because of shortness of breath patient did have a positive blood culture finalized as coagulase negative staph sputum is now showing gram- negative. On today's evaluation that is 09/28/2022, the patient remains to be afebrile, patient right lower chest pain has decreased in intensity, the patient cough Is also decreased intensity and less productive no nausea no vomiting no abdominal pain no urinary Objective - Vital Signs Vital signs: Vital Signs Temp 97.8 F 09/28/22 14:21 Pulse 92 09/28/22 14:21 Resp 18 09/28/22 14:21 BP 119/61 09/28/22 14:21 Pulse Ox 94 L 09/28/22 14:21 FiO2 Intake & Output 09/27/22 09/28/22 09/28/22 18:59 06:59 18:59 Other: Voiding Method Urinal Urinal - Exam GENERAL DESCRIPTION: An elderly male lying in bed in no distress RESPIRATORY SYSTEM: Unlabored breathing , decreased breath sounds at bases HEART: S1 S2 regular rate and rhythm , ABDOMEN: Soft , no tenderness EXTREMITIES: No edema feet - Labs CBC & Chem 7: 09/23/22 07:21 09/27/22 05:14 Labs: Abnormal Lab Results - Last 24 Hours (Table) 09/27/22 09/27/22 09/28/22 Range/Units 17:24 20:24 12:36 POC Glucose (mg/dL) 285 H 260 H 120 H (70-110) mg/dL Microbiology - Last 24 Hours (Table) 09/22/22 12:09 Blood Culture - Final Blood No Growth after 144 hours 09/23/22 14:47 Blood Culture - Preliminary Blood No Growth after 96 hours 09/23/22 14:47 Blood Culture - Preliminary Blood No Growth after 96 hours Assessment and Plan (1) Positive blood culture Current Visit: Yes Status: Acute Code(s): R78.81 - BACTEREMIA SNOMED Code(s): 420735129 (2) Pneumonia Current Visit: No Status: Acute Code(s): J18.9 - PNEUMONIA, UNSPECIFIED ORGANISM SNOMED Code(s): 139853073 Plan: 1patient with a positive blood culture with Staphylococcus auricularis in this patient presented to hospital predominantly with respiratory symptoms and likely skin contamination . 2blood cultures has been repeated which has been negative so far. 3sputum has been finalized with Pseudomonas chest x-ray with a right lower lobe infiltrate question of pneumonia 4patient seemed show some clinical improvement and will continue with the cefepime finishing therapy with a short course of oral Cipro, prescription sent to the pharmacy discussed with the admitting physician Time with Patient: Less than 30
[2022-09-29] MEDS: INSULIN ASPART (NovoLOG) 100 UNIT/ML VIAL SQ SCH ×4 (06:25→21:26)
[2022-09-29 06:26] LABS: Glucose,Whole Blood 76 mg/dL (70-110)
[2022-09-29] MEDS: IPRATROPIUM-ALBUTEROL 3 ML NEB INHALATION SCH ×4 (07:50→19:12)
[2022-09-29] MEDS: SYMBICORT 160-4.5 MCG INHALER INHALATION SCH ×2 (07:50→19:12)
[2022-09-29] MEDS: metFORMIN 500 MG TAB PO SCH ×2 (09:08→17:58)
[2022-09-29] MEDS: predniSONE 20 MG TAB PO SCH (09:15)
[2022-09-29] MEDS: ENOXAPARIN 40 MG/0.4 ML SYRINGE SQ SCH (09:15)
[2022-09-29] MEDS: DILTIAZEM CD 120 MG CAP.ER.24H PO SCH (09:15)
--- NOTE | 2022-09-29 11:38 | P.PN ---
Subjective Progress Note Date: 09/29/22 Principal diagnosis: Shortness of breath. This is a 77-year-old male patient with a history of diabetes mellitus, general anxiety disorder, obesity, previous pseudomonas pneumonias with previous ventilatory dependent respiratory failure requiring tracheostomy and subsequent removal in 2011. He also has severe oxygen dependent chronic obstructive pulmonary disease maintained on home oxygen at 3 L. He is Trelegy, DuoNeb inhalations and albuterol HFA. He is also steroid dependent and is on 5 mg daily. He does have been required transcutaneous fistula with a dressing over his anterior neck. He was a heavy smoker for many years starting at the age of 10. Quit about 10 years ago. He presented to the emergency room with a three- day history of increasing shortness of breath cough or congestion. He had titrated up his oxygen to 5 L without much improvement. His saturations were still in the 80s. Denied any sick contacts. No known exposure to cold or flu. Chest x-ray shows no acute pulmonary process. White count 10.9. Hemoglobin 13.2. Sodium 139. Potassium 4.6. Bicarb 41. BUN 22. Creatinine 0.58. Glucose 247. AST 20. ALT 16. Troponin negative 1. Yao virus not detected. Influenza screen negative. He's been initiated on theophylline, DuoNeb inhalations, Pulmicort and Perforomist inhalations, Solu-Medrol. He is seen today in consultation on the selective care unit. He is currently resting comfortably in bed. Awake and alert in no acute distress. Maintaining O2 saturations in the 90s on 3 L/m per nasal cannula. He's been afebrile. H emodynamically stable. Progress note dated 09/22/2022. The patient is seen today in room 382. We saw the patient yesterday in consultation. He was minute with a diagnosis of COPD exacerbation. He has an extensive history including diabetes, anxiety, obesity, pseudomonas pneumonia, ventilator dependent respiratory failure, tracheostomy, and subsequent decannulation. He also has chronic hypoxemic respiratory failure, and uses home oxygen at 3 L, 16/06. Currently, he is on 4 L of oxygen. He is not receiving any IV fluids. He actually states that he's feeling a bit better today. He was placed on usual medications. No new labs today other than a creatinine 0.64, and a glucose of 172. Blood cultures are positive for coag-negative staph. This is likely a contaminant. Progress note dated 09/26/2022. 77-year-old male seen a few days ago in consultation. He has a history of diabetes, anxiety, obesity, pseudomonas pneumonia, and previous ventilator dependent respiratory failure requiring tracheostomy and its subsequent removal. He was admitted with a diagnosis of COPD exacerbation. Currently, the patient's on 3 L of oxygen. He's not receiving any IV fluids and he is laying i n bed sleeping on his right side. No recent blood work ordered. Sputum showing evidence of Pseudomonas. In addition, blood cultures from September 20 showed evidence of Staphylococcus auricularis. The patient continues on vancomycin. The recent chest x-ray shows some right lower lobe atelectasis or infiltrate, and a small right-sided pleural effusion. Progress note dated 09/27/2022. 77-year-old male seen in room 637. Currently, he's on 3 L of oxygen. He looks about the same today as he did yesterday. The patient is not receiving any IV fluids. He was initially sleeping when I entered the room. He is not manifesting any signs or symptoms of respiratory distress. There is no convers ational dyspnea, use of accessory muscles, or audible wheezing. Sodium 138, potassium 4.6, chlorides 92, CO2 42, BUN 27, creatinine 0.62. Sputum showing evidence of Pseudomonas aeruginosa, and Pseudomonas fluorescens. The patient was started on cefepime as per infectious diseases. Progress note dated 09/26/2022. 77-year-old male seen again in room 637. He remains on 3 L of oxygen. The bronwyn ent is not receiving any IV fluids. He is hoping to be discharged home soon. He denies any worsening shortness of breath, cough, wheezing, or phlegm production. No new labs today other glucose 75. Sputum sampling from September 23 shows 2 different species of Pseudomonas. Chest x-ray from September 26 has been reviewed. The patient remains on cefepime as per infectious diseases. Progress note dated 09/29/2022. 77-year-old male seen in room 637. He remains on 3 L of oxygen. The patient is being treated with cefepime, for pseudomonas infection. The patient is on saline at 20 mL an hour. He is receiving oxygen at 3.5 L. The patient was to be discharged yesterday, but, that did not happen. He had an uneventful night. There are no new labs. Sodium from September 23 shows evidence of both pseudomonas aeruginosa, and Pseudomonas fluorescens. Objective - Vital Signs Vital signs: Vital Signs Temp 98.0 F 09/29/22 08:00 Pulse 103 H 09/29/22 08:00 Resp 16 09/29/22 08:00 BP 120/67 09/29/22 08:00 Pulse Ox 97 09/29/22 08:00 FiO2 Intake & Output 09/28/22 09/29/22 09/29/22 19:59 06:59 18:59 Intake Total Balance Intake: Oral Other: Voiding Method Urinal - Exam No acute distress, oriented 3. No audible wheezing, or use of accessory muscles. Currently, patient on 3 L. Saturation is 97%. HEENT examination is grossly unremarkable. Neck supple. Full range of motion. No adenopathy thyromegaly or neck vein distention. Cardiovascular examination reveals regular rhythm rate. S1-S2 normal. No S3 or S4. No discernible murmur noted. Heart rate 93 bpm. Lungs reveal scattered bilateral expiratory wheezes. Breath sounds are equal bilaterally. Breath sounds are severely diminished throughout. No crackles. Abdomen soft bowel sounds are heard. No masses or tenderness. Extremities are intact. No cyanosis or clubbing. Trace edema present. Skin is without rash or lesion. Neurologic examination is brief but nonfocal. - Labs CBC & Chem 7: 09/23/22 07:21 09/27/22 05:14 Labs: Abnormal Lab Results - Last 24 Hours (Table) 09/28/22 09/28/22 09/28/22 Range/Units 12:36 17:09 20:14 POC Glucose (mg/dL) 120 H 203 H 149 H (70-110) mg/dL Microbiology - Last 24 Hours (Table) 09/23/22 14:47 Blood Culture - Preliminary Blood No Growth after 120 hours 09/23/22 14:47 Blood Culture - Preliminary Blood No Growth after 120 hours 09/22/22 12:09 Blood Culture - Final Blood No Growth after 144 hours Assessment and Plan Assessment: Acute on chronic hypoxemic respiratory failure secondary to an acute exacerbation of chronic obstructive pulmonary disease. Possible pseudomonas aeruginosa pneumonia, right lower lobe. Severe oxygen dependent chronic obstructive pulmonary disease. History of heavy tobacco dependence. History of pseudomonas pneumonia requiring mechanical ventilation with inability to wean and subsequent tracheostomy tube placement and removal. Acquired tracheocutaneous fistula. History of general anxiety disorder. Diabetes mellitus, type II. Plan: Plan dated 09/22/2022. The patient's on 4 L of oxygen. He looks well comfortable. The patient states that he is feeling better. He was placed on albuterol sulfate, and ipratropium bromide, 4 times a day and when necessary. In addition, he is receiving formoterol 20 g, and budesonide 1 mg, twice a day. Also, the patient is on Solu-Medrol, 60 mg IV push, every 6 hours. He also continues on theophylline. We will continue to follow the patient make recommendations along the way. P rognosis is guarded. Labs, x-rays, and medications are all reviewed. Plan dated 09/26/2022. Given the results of the sputum on September 23, and his prior history of pseudomonas pneumonia, infectious diseases should be consulted for advice as to proper antibiotic treatment. The patient continues on vancomycin at the current time. He is on 3 L of oxygen. He looks relatively comfortable. His other medications are appropriate. Labs, x-rays, medications are reviewed. Prognosis is guarded. Plan dated 09/27/2022. The patient has evidence of Pseudomonas, 2 different species in his sputum. The patient is currently on cefepime as per infectious diseases. Clinically, the patient is stable. The patient remains on 3 L. The patient should be treated in outpatient, and a PICC line/midline should be inserted as soon as possible. The longer he stays in the hospital, the more likely he is going to have a nosocomial complication. Additional recommendations and suggestions are forthcoming. Plan dated 09/28/2022. The patient remains on cefepime for his Pseudomonas pulmonary infection. He is on 3 L. Appears very stable. He would like to be discharged home if possible. We'll leave that up to the primary service. The patient will need a prednisone burst and taper on discharge, likely 40 or 50 mg a day, for 4 or 5 days, reducing the dose by 10 mg after the fourth or fifth day. Additional recommendations and suggestions are forthcoming. Vancomycin was discontinued. Labs, x-rays and medications are reviewed. Prognosis is very guarded. Plan dated 09/29/2022. The patient is currently on cefepime IV. He likely be discharged home on an oral antibiotic for Pseudomonas infections. Remains on oxygen at 3-1/2 L. Saturations are 97%. The patient was quite upset today as he was supposed to be discharged home yesterday. Unfortunately, there was some sort of a screw up, an d he could not be discharged in time. Today, he does not have a ride back home. Labs, x-rays, and medications are reviewed. Prognosis is guarded. Time with Patient: Less than 30
[2022-09-29 12:10] LABS: Glucose,Whole Blood 137 mg/dL (70-110)
[2022-09-29 17:13] LABS: Glucose,Whole Blood 259 mg/dL (70-110)
--- NOTE | 2022-09-29 19:59 | P.PN ---
Progress Note - Text Progress Note Date: 09/29/22 Chief Complaint: Short of breath This is a pleasant 77-year-old patient who follows with Dr. 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 Patient able to get around the house without any shaw pport. Patient presents with 4 days of worsening shortness of breath. Slight cough which is quite his baseline. Little phlegm if any. No fever no chills. No edema. Appetite is fair. Tired. Rundown. Admitted with COPD exacerbation. Admitted with COPD exacerbation and acute hypoxic/hypercapnic respiratory failure. 09/21/2022: Sitting at the edge bed. Remains short of breath. Coughing or sp utum. Oral intake fair. Awaiting input from pulmonary. Add theophylline 300 mg daily at bedtime 09/22/2022: Sitting at the edge of the bed.started on theophylline last night. Breathing Dose of IV Solu-Medrol increased yesterday. better. Some sputum. Oral intake fair. 09/23/2022: Sitting at edge bed. Breathing slowly improving. Better short of breath. On IV Solu-Medrol. Eating well. September 24 2022: Breathing better. Less cough. Cutback IV Solu-Medrol to 40 mg every 8. Continue other medications. Discussed with the patient and manager case. They'll arrange for transport to go home tomorrow. 09/25/2022: Patient blood cultures have been positive for Staphylococcus auricularis-possibly contaminant. On IV vancomycin. Consult ID. Hold off discharge for now. Breathing better. 09/26/2022: Patient's repeat blood cultures are negative. Sputum culture growing Pseudomonas from his tracheostomy site.. Starting IV cefepime. Vancomycin discontinued. Eating fair. 09/27/2022: Patient was seen this morning. Getting IV cefepime. Comfortable. Oral intake good. 09/28/2022: Tolerating diet. Breathing stable. There was a problem with patient's pharmacy and transport has discharg could not occur 09/29/2022: Breathing stable. Oral intake fair. Discharged tomorrow. Active Medications Acetaminophen (Acetaminophen Tab 325 Mg Tab) 650 mg PO Q6HR PRN PRN Reason: Mild Pain or Fever > 100.5 Albuterol/Ipratropium (Ipratropium-Albuterol 3 Ml Neb) 3 ml INHALATION RT-QID [facility] Last Admin: 09/29/22 19:12 Dose: Not Given Alprazolam (Alprazolam 0.5 Mg Tab) 0.5 mg PO BID PRN PRN Reason: Anxiety Last Admin: 09/27/22 09:23 Dose: 0.5 mg Alprazolam (Alprazolam 0.5 Mg Tab) 0.5 mg PO HS [facility] Last Admin: 09/28/22 20:56 Dose: 0.5 mg Atorvastatin Calcium (Atorvastatin 20 Mg Tab) 20 mg PO HS [facility] Last Admin: 09/28/22 20:56 Dose: 20 mg Budesonide/Formoterol Fumarate (Symbicort 160-4.5 Mcg Inhaler) 2 puff INHALATION RT-BID [facility] Last Admin: 09/29/22 19:12 Dose: Not Given Calcium Carbonate/Glycine (Calcium Carbonate 500 Mg Chewable) 1,000 mg PO Q4HR PRN PRN Reason: Dyspepsia Dextrose/Water (Dextrose 50% Syringe 50 Ml) 25 ml IVP PER PROTOCOL PRN; Protocol PRN Reason: Hypoglycemia Dextrose/Water (Dextrose 50% Syringe 50 Ml) 50 ml IVP PER PROTOCOL PRN; Protocol PRN Reason: Hypoglycemia Diltiazem HCl (Diltiazem Cd 120 Mg Cap.Er.24h) 120 mg PO DAILY [facility] Last Admin: 09/29/22 09:15 Dose: 120 mg Enoxaparin Sodium (Enoxaparin 40 Mg/0.4 Ml Syringe) 40 mg SQ DAILY [facility] Last Admin: 09/29/22 09:15 Dose: 40 mg Cefepime HCl 2 gm/ Sodium (Chloride) 100 mls @ 25 mls/hr IVPB Q8HR [facility]; Protocol Last Admin: 09/29/22 15:36 Dose: 25 mls/hr Insulin Aspart (Insulin Aspart (Novolog) 100 Unit/Ml Vial) 0 unit SQ ACHS [facility]; Protocol Last Admin: 09/29/22 17:58 Dose: 6 unit Lactulose (Lactulose 20 Gm/30 Ml Cup) 20 gm PO DAILY PRN PRN Reason: Constipation Metformin HCl (Metformin 500 Mg Tab) 500 mg PO BID-W/MEALS [facility] Last Admin: 09/29/22 17:58 Dose: 500 mg Naloxone HCl (Naloxone 0.4 Mg/Ml 1 Ml Vial) 0.2 mg IV Q2M PRN PRN Reason: Opioid Reversal Ondansetron HCl (Ondansetron 4 Mg/2 Ml Vial) 4 mg IVP Q8HR PRN PRN Reason: Nausea And Vomiting Prednisone (Prednisone 20 Mg Tab) 40 mg PO DAILY [facility] Last Admin: 09/29/22 09:15 Dose: 40 mg Theophylline (Theophylline 24 Hour 300 Mg Cap.Er.24h) 300 mg PO HS [facility] Last Admin: 09/28/22 20:56 Dose: 300 mg Past medical history to include: Anxiety, COPD, hyperlipidemia, diabetes, hypertension Social history: This is his brother. Stop smoking 7 years ago, smoked for about 60 years was smoking up to 3 packs a day. 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 Physical examination: VITAL SIGNS: 98.4, 92, 18, 115/70, 97% on 3 L GENERAL: Laying in bed, comfortable tattoos EYES: Pupils equal. Conjunctiva normal. HEENT: External appearance of nose and ears normal, oral cavity grossly normal. Tracheostomy site covered with gauze NECK: JVD not raised; masses not palpable. HEART: First and second heart sounds are normal; no edema. LUNGS:Respiratory rate normal diminished breath sounds ABDOMEN: Soft, nontender, liver spleen not palpable, no masses palpable. PSYCH: Alert and oriented x3; mood and affect slightly anxious MUSCULOSKELETAL:No Clubbing/cyanosis;muscles-grossly intact, evidence of OA INVESTIGATIONS, reviewed in the clinical context: 09/27/2022: Potassium 4.6 bicarbonate 42 creatinine 0.62 Sputum culture: Pseudomonas Blood culture [September 20]: Staphylococcus auricularis, September 23: WBC 12.9 hemoglobin 11.6 potassium 4.6 creatinine 0.67 Venous gases: PCO2 is 76 bicarbonate 43 pH 7.36 WBC 10.9 hemoglobin 13.2 platelets 240 sodium 139 potassium 4.6 bicarbonate 41 BUN 22 creatinine 0.58 lactic acid 3.8 Troponin I less than 0.012 COVID 19/influenza type A/influenza type B: Not detected EKG tracing personally reviewed by me: Normal sinus rhythm. Chest x-ray film personally reviewed by me-hyperinflation, prominent pulmonary artery Assessment and plan: -Acute exacerbation of severe steroid-dependent COPD in a previous smoker: Better DuoNeb every 6, oral prednisone, Symbicort theophylline 300 mg daily at bedtime -Pseudomonas aeruginosa pneumonia IV cefepime. To be discharged on ciprofloxacin. -Acute on chronic hypoxic and hypercapnic type II respiratory failure from COPD: Better Baseline oxygen is 3 L, -Blood culture positive for Staphylococcus auricularis, - contaminant. *Vancomycin. Seen by ID -Anxiety not otherwise specified Xanax when necessary -Hyperlipidemia Lipitor -Diabetes mellitus type 2, chronically on oral hypoglycemic, Follow Accu-Cheks with sliding scale. Stop Levemir. Metformin -Essential hypertension Cardizem -Full code Discussed with patient. Continue current medications. Discharged tomorrow.
[2022-09-29 20:28] LABS: Glucose,Whole Blood 193 mg/dL (70-110)
[2022-09-29] MEDS: THEOPHYLLINE 24 HOUR 300 MG CAP.ER.24H PO SCH (21:26)
[2022-09-29] MEDS: ATORVASTATIN 20 MG TAB PO SCH (21:26)
[2022-09-29] MEDS: ALPRAZolam 0.5 MG TAB PO SCH (21:26)
[2022-09-30] MEDS: CEFEPIME 2 GM in SODIUM CHLORIDE 0.9% 100 ML IVPB SCH ×2 (00:57→07:45)
[2022-09-30] MEDS: INSULIN ASPART (NovoLOG) 100 UNIT/ML VIAL SQ SCH ×4 (06:37→21:26)
[2022-09-30] MEDS: metFORMIN 500 MG TAB PO SCH ×2 (06:37→16:30)
[2022-09-30 06:38] LABS: Glucose,Whole Blood 98 mg/dL (70-110)
[2022-09-30] MEDS: DILTIAZEM CD 120 MG CAP.ER.24H PO SCH (07:46)
[2022-09-30] MEDS: predniSONE 20 MG TAB PO SCH (07:46)
[2022-09-30] MEDS: ENOXAPARIN 40 MG/0.4 ML SYRINGE SQ SCH (07:46)
--- NOTE | 2022-09-30 08:50 | XR ---
EXAMINATION TYPE: XR chest 1V portable DATE OF EXAM: 09/30/2022 8:38 AM COMPARISON: Chest radiographs from 09/26/2022. TECHNIQUE: XR chest 1V portable Frontal view of the chest. CLINICAL INDICATION:Male, 77 years old with history of Pleural effusions; FINDINGS: Lungs/Pleura: No pneumothorax. Hyperinflation with flattening of the diaphragms consistent with COPD. Right basilar patchy airspace opacity. Small right pleural effusion is unchanged. Pulmonary vascularity: Unremarkable. Heart/mediastinum: Cardiomediastinal silhouette is unremarkable. Musculoskeletal: No acute osseous pathology. IMPRESSION: Unchanged small right pleural effusion with adjacent airspace opacity which may represent atelectasis and/or infiltrate.
[2022-09-30] MEDS: SYMBICORT 160-4.5 MCG INHALER INHALATION SCH ×2 (09:31→20:36)
[2022-09-30] MEDS: IPRATROPIUM-ALBUTEROL 3 ML NEB INHALATION SCH ×4 (09:31→20:36)
--- NOTE | 2022-09-30 11:58 | P.PN ---
Subjective Progress Note Date: 09/30/22 The patient is seen today 09/30/2022 in follow-up on the regular medical floor. He is currently sitting up at the bedside. Awake and alert in no acute distress. Maintaining O2 saturations in the 90s on 3 L/m per nasal cannula. Static x-ray continues to show a small right pleural effusion with adjacent airspace opacity. No significant change. Sputum culture was positive for pseudomonas aeruginosa and Pseudomonas fluorescens/putida. Follow-up blood cultures reveal no growth. Glucose 98. He is continued on Symbicort, DuoNeb inhalations, prednisone taper. He remains on theophylline. He is on antibiotics in the form of cefepime. Lovenox for DVT prophylaxis. Objective - Vital Signs Vital signs: Vital Signs Temp 98.1 F 09/30/22 06:13 Pulse 108 H 09/30/22 09:44 Resp 19 09/30/22 06:13 BP 133/79 09/30/22 06:13 Pulse Ox 99 09/30/22 06:13 FiO2 Intake & Output 09/29/22 09/30/22 09/30/22 18:59 06:59 18:59 Output Total 350 Balance -350 Output: Urine 350 Other: Voiding Method Urinal Urinal Urinal - Exam GENERAL EXAM: Alert, active, in the 7-year-old male, on 3 L, comfortable in no apparent distress. HEAD: Normocephalic. EYES: Normal reaction of pupils, equal size. NOSE: Clear with pink turbinates. THROAT: No erythema or exudates. NECK: Dressing covering tracheostomy fistula. No masses, no JVD. CHEST: No chest wall deformity. LUNGS: Equal air entry with few scattered rhonchi, crackles in the right.. Diminished. CVS: S1 and S2 normal with no audible murmur, regular rhythm. ABDOMEN: No hepatosplenomegaly, normal bowel sounds, no guarding or rigidity. SPINE: No scoliosis or deformity SKIN: No rashes CENTRAL NERVOUS SYSTEM: No focal deficits, tone is normal in all 4 extremities. EXTREMITIES: There is no peripheral edema. No clubbing, no cyanosis. Peripheral pulses are intact. - Labs CBC & Chem 7: 09/23/22 07:21 09/27/22 05:14 Labs: Abnormal Lab Results - Last 24 Hours (Table) 09/29/22 09/29/22 09/29/22 Range/Units 12:07 17:11 20:27 POC Glucose (mg/dL) 137 H 259 H 193 H (70-110) mg/dL Microbiology - Last 24 Hours (Table) 09/23/22 14:47 Blood Culture - Final Blood No Growth after 144 hours 09/23/22 14:47 Blood Culture - Final Blood No Growth after 144 hours Assessment and Plan Assessment: Acute on chronic hypoxemic respiratory failure secondary to an acute exacerbation of chronic obstructive pulmonary disease. Suspected right lower lobe pneumonia. Sputum culture positive for pseudomonas. Severe oxygen dependent chronic obstructive pulmonary disease History of heavy tobacco dependence History of pseudomonas pneumonia requiring mechanical ventilation with inability to wean and subsequent tracheostomy tube placement and removal Acquired tracheal cutaneous fistula History of general anxiety disorder Diabetes mellitus, type II Plan: The patient was seen and evaluated Chest x-ray, labs and medications reviewed Continue DuoNeb inhalations, Symbicort Continue prednisone taper Continue theophylline Cleared for discharge from pulmonary standpoint Antibiotics per ID services I have personally seen and examined the patient, performed the documentation and the assessment and plan as written. Number of minutes spent on the visit: 10.
[2022-09-30 12:38] LABS: Glucose,Whole Blood 227 mg/dL (70-110)
--- NOTE | 2022-09-30 13:15 | CDI ---
Documentation Clarification Form Date: 09/30/2022 01:06:17 PM From: Lynette Baez CCS, CCDS Admit Date: 09/20/2022 04:00:00 PM Patient Name: Mauro Schwab Visit Number: [id number] Discharge Date: ATTENTION: The Clinical Documentation Specialists (CDI) and [facility] Coding Staff appreciate your assistance in clarifying documentation. Please respond to the clarification below the line at the bottom and electronically sign. The CDI & [facility] Coding staff will review the response and follow-up if needed. Please note: Queries are made part of the Legal Health Record. If you have any questions, please contact the author of this message via ITS. Dr. Manjit Lizama: The patient presented with the following clinical indicators. Additional clarification regarding the etiology/cause of the clinical indicators is requested. History/Risk Factors per the 09/20 H/P: Anxiety, COPD, Hyperlipidemia, Diabetes, Hypertension, Former smoker. Clinical Indicators: Presented to the ED on 09/20 with SOB. EMS, typically on 3L nc, increased to 5L to maintain sats above 87%, cough with sputum production. Admit with COPD exacerbation. 09/20 VS: T 98.1, P 94, R 18 - 22 (SOB, labored), BPB 112/52, BMI: 26.6 09/20 LAB: WBC 10.9, Neutrophils 9.5; APTT 21.0; VBG pH 7.36, pCO2 76, HCO3 43; Chloride 90, CO2 41, BUN 22, Cr 0.58, Glucose 371, Lactic Acid 3.8, 2.6; Total protein 6.2. 09/20 Blood culture: Staphylococcus auricularis x2. 09/23 Sputum culture: Pseudomonas aeruginosa, Pseudomonas fluorescens/putida 09/20 CXR: No evidence of acute pulmonary disease. Treatment 09/20: Fall precautions, Hypoglycemia protocol, O2 5Lnc, INH Duoneb 3 ml x1, IV solumedrol 125 mg x1, IV Dextrose 25 ml prn, Insulin sq TID, IV zofran 4 mg q8H/prn, Lovenox 40 mg sq Daily, INH Pulmicort BID, INH Perforomist 20 mcg BID. 09/21: IV Vancomycin 500 mls @ 167 mls/hr q12H. 09/26 IV Cefepime 100 mls @ 25 mls/hr q8H. In your professional opinion, please clarify if these findings signify one of the following conditions: [ ] Sepsis POA [ ] Sepsis, Not POA [ ] Severe Sepsis with organ failure [ ] Other, please specify [ ] Unable to determine No sepsis (Template Last Reviewed: December 2020) JACQUI
--- NOTE | 2022-09-30 15:04 | P.PN ---
Progress Note - Text Progress Note Date: 09/30/22 Chief Complaint: Short of breath This is a pleasant 77-year-old patient who follows with Dr. Valiente as his PCP and Dr. Raymond as his structural worker. 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 Patient able to get around the house without any shaw pport. Patient presents with 4 days of worsening shortness of breath. Slight cough which is quite his baseline. Little phlegm if any. No fever no chills. No edema. Appetite is fair. Tired. Rundown. Admitted with COPD exacerbation. Admitted with COPD exacerbation and acute hypoxic/hypercapnic respiratory failure. 09/21/2022: Sitting at the edge bed. Remains short of breath. Coughing or sp utum. Oral intake fair. Awaiting input from pulmonary. Add theophylline 300 mg daily at bedtime 09/22/2022: Sitting at the edge of the bed.started on theophylline last night. Breathing Dose of IV Solu-Medrol increased yesterday. better. Some sputum. Oral intake fair. 09/23/2022: Sitting at edge bed. Breathing slowly improving. Better short of breath. On IV Solu-Medrol. Eating well. September 24 2022: Breathing better. Less cough. Cutback IV Solu-Medrol to 40 mg every 8. Continue other medications. Discussed with the patient and case fitter. They'll arrange for transport to go home tomorrow. 09/25/2022: Patient blood cultures have been positive for Staphylococcus auricularis-possibly contaminant. On IV vancomycin. Consult ID. Hold off discharge for now. Breathing better. 09/26/2022: Patient's repeat blood cultures are negative. Sputum culture growing Pseudomonas from his tracheostomy site.. Starting IV cefepime. Vancomycin discontinued. Eating fair. 09/27/2022: Patient was seen this morning. Getting IV cefepime. Comfortable. Oral intake good. 09/28/2022: Tolerating diet. Breathing stable. There was a problem with patient's pharmacy and transport has discharg could not occur 09/29/2022: Breathing stable. Oral intake fair. Discharged tomorrow. 09/30/2022: Patient feels he cannot manage at home. PTOT consulted. manager erp consulted. Breathing stable. On oxygen. Active Medications Acetaminophen (Acetaminophen Tab 325 Mg Tab) 650 mg PO Q6HR PRN PRN Reason: Mild Pain or Fever > 100.5 Albuterol/Ipratropium (Ipratropium-Albuterol 3 Ml Neb) 3 ml INHALATION RT-QID [facility] Last Admin: 09/30/22 12:21 Dose: 3 ml Alprazolam (Alprazolam 0.5 Mg Tab) 0.5 mg PO BID PRN PRN Reason: Anxiety Last Admin: 09/27/22 09:23 Dose: 0.5 mg Alprazolam (Alprazolam 0.5 Mg Tab) 0.5 mg PO HS [facility] Last Admin: 09/29/22 21:26 Dose: 0.5 mg Atorvastatin Calcium (Atorvastatin 20 Mg Tab) 20 mg PO HS [facility] Last Admin: 09/29/22 21:26 Dose: 20 mg Budesonide/Formoterol Fumarate (Symbicort 160-4.5 Mcg Inhaler) 2 puff INHALATION RT-BID [facility] Last Admin: 09/30/22 09:31 Dose: Not Given Calcium Carbonate/Glycine (Calcium Carbonate 500 Mg Chewable) 1,000 mg PO Q4HR PRN PRN Reason: Dyspepsia Dextrose/Water (Dextrose 50% Syringe 50 Ml) 25 ml IVP PER PROTOCOL PRN; Protocol PRN Reason: Hypoglycemia Dextrose/Water (Dextrose 50% Syringe 50 Ml) 50 ml IVP PER PROTOCOL PRN; Protocol PRN Reason: Hypoglycemia Diltiazem HCl (Diltiazem Cd 120 Mg Cap.Er.24h) 120 mg PO DAILY [facility] Last Admin: 09/30/22 07:46 Dose: 120 mg Enoxaparin Sodium (Enoxaparin 40 Mg/0.4 Ml Syringe) 40 mg SQ DAILY [facility] Last Admin: 09/30/22 07:46 Dose: 40 mg Cefepime HCl 2 gm/ Sodium (Chloride) 100 mls @ 25 mls/hr IVPB Q8HR [facility]; Protocol Last Admin: 09/30/22 07:45 Dose: 25 mls/hr Insulin Aspart (Insulin Aspart (Novolog) 100 Unit/Ml Vial) 0 unit SQ ACHS [facility]; Protocol Last Admin: 09/30/22 13:15 Dose: 4 unit Lactulose (Lactulose 20 Gm/30 Ml Cup) 20 gm PO DAILY PRN PRN Reason: Constipation Metformin HCl (Metformin 500 Mg Tab) 500 mg PO BID-W/MEALS [facility] Last Admin: 09/30/22 06:37 Dose: 500 mg Naloxone HCl (Naloxone 0.4 Mg/Ml 1 Ml Vial) 0.2 mg IV Q2M PRN PRN Reason: Opioid Reversal Ondansetron HCl (Ondansetron 4 Mg/2 Ml Vial) 4 mg IVP Q8HR PRN PRN Reason: Nausea And Vomiting Prednisone (Prednisone 20 Mg Tab) 40 mg PO DAILY [facility] Last Admin: 09/30/22 07:46 Dose: 40 mg Theophylline (Theophylline 24 Hour 300 Mg Cap.Er.24h) 300 mg PO HS [facility] Last Admin: 09/29/22 21:26 Dose: 300 mg Past medical history to include: Anxiety, COPD, hyperlipidemia, diabetes, hypertension Social history: This is his brother. Stop smoking 7 years ago, smoked for about 60 years was smoking up to 3 packs a day. 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 Physical examination: VITAL SIGNS: Afebrile, 78, 19, 133 with 79, 99% on 3.5 L GENERAL: Laying in bed, comfortable tattoos EYES: Pupils equal. Conjunctiva normal. HEENT: External appearance of nose and ears normal, oral cavity grossly normal. Tracheostomy site covered with gauze NECK: JVD not raised; masses not palpable. HEART: First and second heart sounds are normal; no edema. LUNGS:Respiratory rate normal diminished breath sounds ABDOMEN: Soft, nontender, liver spleen not palpable, no masses palpable. PSYCH: Alert and oriented x3; mood and affect slightly anxious MUSCULOSKELETAL:No Clubbing/cyanosis;muscles-grossly intact, evidence of OA INVESTIGATIONS, reviewed in the clinical context: 09/27/2022: Potassium 4.6 bicarbonate 42 creatinine 0.62 Sputum culture: Pseudomonas Blood culture [September 20]: Staphylococcus auricularis, September 23: WBC 12.9 hemoglobin 11.6 potassium 4.6 creatinine 0.67 Venous gases: PCO2 is 76 bicarbonate 43 pH 7.36 WBC 10.9 hemoglobin 13.2 platelets 240 sodium 139 potassium 4.6 bicarbonate 41 BUN 22 creatinine 0.58 lactic acid 3.8 Troponin I less than 0.012 COVID 19/influenza type A/influenza type B: Not detected EKG tracing personally reviewed by me: Normal sinus rhythm. Chest x-ray film personally reviewed by me-hyperinflation, prominent pulmonary artery Assessment and plan: -Acute exacerbation of severe steroid-dependent COPD in a previous smoker: Better DuoNeb every 6, oral prednisone, Symbicort theophylline 300 mg daily at bedtime -Pseudomonas aeruginosa pneumonia IV cefepime. Changed to ciprofloxacin 5 mg twice a day -Acute on chronic hypoxic and hypercapnic type II respiratory failure from COPD: Better Baseline oxygen is 3 L, -Blood culture positive for Staphylococcus auricularis, - contaminant. *Vancomycin. Seen by ID -Anxiety not otherwise specified Xanax when necessary -Hyperlipidemia Lipitor -Diabetes mellitus type 2, chronically on oral hypoglycemic, Follow Accu-Cheks with sliding scale. Stop Levemir. Metformin -Essential hypertension Cardizem -Full code PT OT consulted. Discussed with case fitter. Discussed with nurse. Discussed with the patient. Looking into rehab evaluation. Change antibiotic to oral ciprofloxacin. Total spent today about 40 minutes with over 25 minutes of discussion.
[2022-09-30] MEDS: ALPRAZolam 0.5 MG TAB PO PRN (16:36)
[2022-09-30 17:53] LABS: Glucose,Whole Blood 235 mg/dL (70-110)
[2022-09-30 21:20] LABS: Glucose,Whole Blood 202 mg/dL (70-110)
[2022-09-30] MEDS: CIPROFLOXACIN HCL 500 MG TAB PO SCH (21:25)
[2022-09-30] MEDS: ATORVASTATIN 20 MG TAB PO SCH (21:25)
[2022-09-30] MEDS: THEOPHYLLINE 24 HOUR 300 MG CAP.ER.24H PO SCH (21:26)
[2022-09-30] MEDS: ALPRAZolam 0.5 MG TAB PO SCH (21:26)
--- NOTE | 2022-09-30 23:11 | P.PN ---
Subjective Progress Note Date: 09/29/22 Principal diagnosis: Positive blood culture and a question of pneumonia Patient is a 77 year male with multiple comorbidities including COPD presented to hospital because of shortness of breath patient did have a positive blood culture finalized as coagulase negative staph sputum is now showing gram- negative. On today's evaluation that is 09/29/2022, the patient continues to be afebrile, patient right lower chest pain has decreased in intensity, the patient cough has decreased intensity and less productive, the patient denies nausea no vomiting no abdominal pain no urinary symptoms Objective - Vital Signs Vital signs: Vital Signs Temp 98.4 F 09/29/22 14:00 Pulse 82 09/29/22 14:00 Resp 18 09/29/22 14:00 BP 115/70 09/29/22 14:00 Pulse Ox 97 09/29/22 14:00 FiO2 Intake & Output 09/28/22 09/29/22 09/29/22 19:59 06:59 18:59 Intake Total Output Total 350 Balance -350 Intake: Oral Output: Urine 350 Other: Voiding Method Urinal - Exam GENERAL DESCRIPTION: An elderly male lying in bed in no distress RESPIRATORY SYSTEM: Unlabored breathing , decreased breath sounds at bases HEART: S1 S2 regular rate and rhythm , ABDOMEN: Soft , no tenderness EXTREMITIES: No edema feet - Labs CBC & Chem 7: 09/23/22 07:21 09/27/22 05:14 Labs: Abnormal Lab Results - Last 24 Hours (Table) 09/28/22 09/28/22 09/29/22 Range/Units 17:09 20:14 12:07 POC Glucose (mg/dL) 203 H 149 H 137 H (70-110) mg/dL Microbiology - Last 24 Hours (Table) 09/23/22 14:47 Blood Culture - Preliminary Blood No Growth after 120 hours 09/23/22 14:47 Blood Culture - Preliminary Blood No Growth after 120 hours 09/22/22 12:09 Blood Culture - Final Blood No Growth after 144 hours Assessment and Plan (1) Positive blood culture Current Visit: Yes Status: Acute Code(s): R78.81 - BACTEREMIA SNOMED Code(s): 835946267 (2) Pneumonia Current Visit: No Status: Acute Code(s): J18.9 - PNEUMONIA, UNSPECIFIED ORGANISM SNOMED Code(s): 948176397 Plan: 1patient with a positive blood culture with Staphylococcus auricularis in this patient presented to hospital predominantly with respiratory symptoms and likely skin contamination . 2blood cultures has been repeated which has been negative so far. 3sputum has been finalized with Pseudomonas chest x-ray with a right lower lobe infiltrate question of pneumonia 4patient has shown some clinical improvement and will continue with the cef epime finishing therapy with a short course of oral Cipro and close outpatient follow-up Time with Patient: Less than 30
--- NOTE | 2022-09-30 23:13 | P.PN ---
Subjective Progress Note Date: 09/30/22 Principal diagnosis: Positive blood culture and a question of pneumonia Patient is a 77 year male with multiple comorbidities including COPD presented to hospital because of shortness of breath patient did have a positive blood culture finalized as coagulase negative staph sputum is now showing gram- negative. On today's evaluation that is 09/30/2022, the patient is afebrile, patient right lower chest pain has decreased in intensity, the patient did have occasional c ough and less productive, the patient denies nausea no vomiting no abdominal pain no new symptoms Objective - Vital Signs Vital signs: Vital Signs Temp 98 F 09/30/22 14:00 Pulse 101 H 09/30/22 15:55 Resp 20 09/30/22 14:00 BP 118/75 09/30/22 14:00 Pulse Ox 99 09/30/22 06:13 FiO2 Intake & Output 09/29/22 09/30/22 09/30/22 18:59 06:59 18:59 Output Total 350 Balance -350 Output: Urine 350 Other: Voiding Method Urinal Urinal Urinal - Exam GENERAL DESCRIPTION: An elderly male lying in bed in no distress RESPIRATORY SYSTEM: Unlabored breathing , decreased breath sounds at bases HEART: S1 S2 regular rate and rhythm , ABDOMEN: Soft , no tenderness EXTREMITIES: No edema feet - Labs CBC & Chem 7: 09/23/22 07:21 09/27/22 05:14 Labs: Abnormal Lab Results - Last 24 Hours (Table) 09/29/22 09/29/22 09/30/22 Range/Units 17:11 20:27 12:27 POC Glucose (mg/dL) 259 H 193 H 227 H (70-110) mg/dL Microbiology - Last 24 Hours (Table) 09/23/22 14:47 Blood Culture - Final Blood No Growth after 144 hours 09/23/22 14:47 Blood Culture - Final Blood No Growth after 144 hours Assessment and Plan (1) Positive blood culture Current Visit: Yes Status: Acute Code(s): R78.81 - BACTEREMIA SNOMED Code(s): 060705182 (2) Pneumonia Current Visit: No Status: Acute Code(s): J18.9 - PNEUMONIA, UNSPECIFIED ORGANISM SNOMED Code(s): 386863820 Plan: 1patient with a positive blood culture with Staphylococcus auricularis in this patient presented to hospital predominantly with respiratory symptoms and likely skin contamination . 2blood cultures has been repeated which has been negative so far. 3sputum has been finalized with Pseudomonas chest x-ray with a right lower lobe infiltrate question of pneumonia 4patient slowly clinical improvement and is currently being treated with the cefepime finishing therapy with a short course of oral Cipro on discharge Time with Patient: Less than 30
[2022-10-01] MEDS: INSULIN ASPART (NovoLOG) 100 UNIT/ML VIAL SQ SCH ×2 (06:21→12:20)
[2022-10-01 06:22] LABS: Glucose,Whole Blood 88 mg/dL (70-110)
[2022-10-01] MEDS: metFORMIN 500 MG TAB PO SCH (06:33)
[2022-10-01] MEDS: IPRATROPIUM-ALBUTEROL 3 ML NEB INHALATION SCH ×2 (08:09→12:32)
[2022-10-01] MEDS: SYMBICORT 160-4.5 MCG INHALER INHALATION SCH (08:09)
[2022-10-01 08:22] VITALS: BP 128/69; PULSE 88; RESP 20; TEMP 98.2
[2022-10-01] MEDS: predniSONE 20 MG TAB PO SCH (09:03)
[2022-10-01] MEDS: DILTIAZEM CD 120 MG CAP.ER.24H PO SCH (09:03)
[2022-10-01] MEDS: ENOXAPARIN 40 MG/0.4 ML SYRINGE SQ SCH (09:03)
[2022-10-01] MEDS: CIPROFLOXACIN HCL 500 MG TAB PO SCH (09:03)
[2022-10-01] MEDS: ALPRAZolam 0.5 MG TAB PO PRN (09:09)
--- NOTE | 2022-10-01 11:40 | P.PN ---
Subjective Progress Note Date: 10/01/22 The patient is seen today 09/30/2022 in follow-up on the regular medical floor. He is currently sitting up at the bedside. Awake and alert in no acute distress. Maintaining O2 saturations in the 90s on 3 L/m per nasal cannula. Static x-ray continues to show a small right pleural effusion with adjacent airspace opacity. No significant change. Sputum culture was positive for pseudomonas aeruginosa and Pseudomonas fluorescens/putida. Follow-up blood cultures reveal no growth. Glucose 98. He is continued on Symbicort, DuoNeb inhalations, prednisone taper. He remains on theophylline. He is on antibiotics in the form of cefepime. Lovenox for DVT prophylaxis. The patient is seen today 10/01/2022 in follow-up on the regular medical floor. He is currently sitting up at the bedside. We'll and alert in no acute distress. Currently maintaining O2 saturations in the mid 90s on 3.5 L/m per n charles cannula. He is afebrile. Hemodynamically stable. Sputum culture was positive for pseudomonas. Follow-up blood cultures revealed no growth. Blood glucose 88. He remains on DuoNeb inhalations, Symbicort, prednisone taper and theophylline. Antibiotics in the order of ciprofloxacin. Lovenox for DVT prophylaxis. Objective - Vital Signs Vital signs: Vital Signs Temp 98.2 F 10/01/22 08:00 Pulse 96 10/01/22 08:20 Resp 20 10/01/22 08:00 BP 128/69 10/01/22 08:00 Pulse Ox 96 10/01/22 08:00 FiO2 Intake & Output 09/30/22 10/01/22 10/01/22 18:59 06:59 18:59 Intake Total 120 Output Total 500 Balance 120 -500 Intake: Oral 120 Output: Urine 500 Other: Voiding Method Urinal Urinal Urinal # Voids 1 - Exam GENERAL EXAM: Alert, pleasant 77-year-old male, on 3.5 L, comfortable in no apparent distress. HEAD: Normocephalic. EYES: Normal reaction of pupils, equal size. NOSE: Clear with pink turbinates. THROAT: No erythema or exudates. NECK: Dressing covering tracheostomy fistula. No masses, no JVD. CHEST: No chest wall deformity. LUNGS: Equal air entry with few scattered rhonchi, crackles in the right. Di minished. CVS: S1 and S2 normal with no audible murmur, regular rhythm. ABDOMEN: No hepatosplenomegaly, normal bowel sounds, no guarding or rigidity. SPINE: No scoliosis or deformity SKIN: No rashes CENTRAL NERVOUS SYSTEM: No focal deficits, tone is normal in all 4 extremities. EXTREMITIES: There is no peripheral edema. No clubbing, no cyanosis. Peripheral pulses are intact. - Labs CBC & Chem 7: 09/23/22 07:21 09/27/22 05:14 Labs: Abnormal Lab Results - Last 24 Hours (Table) 09/30/22 09/30/22 09/30/22 Range/Units 12:27 17:50 21:18 POC Glucose (mg/dL) 227 H 235 H 202 H (70-110) mg/dL Assessment and Plan Assessment: Acute on chronic hypoxemic respiratory failure secondary to an acute exacerbation of chronic obstructive pulmonary disease. Suspected right lower lobe pneumonia. Sputum culture positive for pseudomonas. Currently on Ciprofloxaciin Severe oxygen dependent chronic obstructive pulmonary disease History of heavy tobacco dependence History of pseudomonas pneumonia requiring mechanical ventilation with inability to wean and subsequent tracheostomy tube placement and removal Acquired tracheal cutaneous fistula History of general anxiety disorder Diabetes mellitus, type II Plan: The patient was seen and evaluated Labs and medications reviewed Continue DuoNeb inhalations, Symbicort Continue prednisone taper Continue theophylline Complete a course of antibiotics in the form of ciprofloxacin Plan is for transfer to [facility] for subacute rehabilitation Cleared for discharge from pulmonary standpoint I have personally seen and examined the patient, performed the documentation and the assessment and plan as written. Number of minutes spent on the visit: 10.
[2022-10-01 11:55] LABS: Glucose,Whole Blood 141 mg/dL (70-110)
--- NOTE | 2022-10-01 12:35 | P.DS ---
Providers Date of admission: 09/20/22 16:00 Expected date of discharge: 10/01/22 Attending physician: Manjit Lizama Consults: 09/20/22 16:00 Consult Physician Routine Consulting Provider: Kal Raymond Consult Reason/Comments: COPD exacerbation Do you want consulting provider notified?: Yes 09/22/22 11:20 Consult Physician Routine Consulting Provider: Eugenio Garcias Consult Reason/Comments: needs toe nails cut Do you want consulting provider notified?: Yes 09/25/22 11:05 Consult Physician Routine Consulting Provider: Cezar Mari Consult Reason/Comments: Positive blood cultures Do you want consulting provider notified?: Yes Primary care physician: [facility] Course: Chief Complaint: Short of breath This is a pleasant 77-year-old patient who follows with Dr. Valiente as his PCP and Dr. 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 Patient able to get around the house without any support. Patient presents with 4 days of worsening shortness of breath. Slight cough which is quite his baseline. Little phlegm if any. No fever no chills. No edema. Appetite is fair. Tired. Rundown. Admitted with COPD exacerbation. Admitted with COPD exacerbation and acute hypoxic/hypercapnic respiratory failure. 09/21/2022: Sitting at the edge bed. Remains short of breath. Coughing or sputum. Oral intake fair. Awaiting input from pulmonary. Add theophylline 300 mg daily at bedtime 09/22/2022: Sitting at the edge of the bed.started on theophylline last night. Breathing Dose of IV Solu-Medrol increased yesterday. better. Some sputum. Oral intake fair. 09/23/2022: Sitting at edge bed. Breathing slowly improving. Better short of breath. On IV Solu-Medrol. Eating well. September 24 2022: Breathing better. Less cough. Cutback IV Solu-Medrol to 40 mg every 8. Continue other medications. Discussed with the patient and onsite case manager. They'll arrange for transport to go home tomorrow. 09/25/2022: Patient blood cultures have been positive for Staphylococcus auricularis-possibly contaminant. On IV vancomycin. Consult ID. Hold off discharge for now. Breathing better. 09/26/2022: Patient's repeat blood cultures are negative. Sputum culture growing Pseudomonas from his tracheostomy site.. Starting IV cefepime. Vancomycin discontinued. Eating fair. 09/27/2022: Patient was seen this morning. Getting IV cefepime. Comfortable. Oral intake good. 09/28/2022: Tolerating diet. Breathing stable. There was a problem with patient's pharmacy and transport has discharg could not occur 09/29/2022: Breathing stable. Oral intake fair. Discharged tomorrow. 09/30/2022: Patient feels he cannot manage at home. PTOT consulted. coating manager consulted. Breathing stable. On oxygen. 10/01/2022: Discussed with onsite case manager. Relevant to [place] today. Discussed with patient. Complete a course of ciprofloxacin outpatient. Follow-up with pulmonary outpatient. Discussed with patient. Eating well Discussion and discharge planning more than 35 minutes Past medical history to include: Anxiety, COPD, hyperlipidemia, diabetes, hypertension Social history: This is his brother. Stop smoking 7 years ago, smoked for about 60 years was smoking up to 3 packs a day. 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 Physical examination: VITAL SIGNS: 98.2, 92, 20, 120/69, 96% on 3.5 L GENERAL: Laying in bed, comfortable tattoos EYES: Pupils equal. Conjunctiva normal. HEENT: External appearance of nose and ears normal, oral cavity grossly normal. Tracheostomy site covered with gauze NECK: JVD not raised; masses not palpable. HEART: First and second heart sounds are normal; no edema. LUNGS:Respiratory rate normal diminished breath sounds ABDOMEN: Soft, nontender, liver spleen not palpable, no masses palpable. PSYCH: Alert and oriented x3; mood and affect slightly anxious MUSCULOSKELETAL:No Clubbing/cyanosis;muscles-grossly intact, evidence of OA INVESTIGATIONS, reviewed in the clinical context: COVID 19: Not detected 09/27/2022: Potassium 4.6 bicarbonate 42 creatinine 0.62 Sputum culture: Pseudomonas Blood culture [September 20]: Staphylococcus auricularis, September 23: WBC 12.9 hemoglobin 11.6 potassium 4.6 creatinine 0.67 Venous gases: PCO2 is 76 bicarbonate 43 pH 7.36 WBC 10.9 hemoglobin 13.2 platelets 240 sodium 139 potassium 4.6 bicarbonate 41 BUN 22 creatinine 0.58 lactic acid 3.8 Troponin I less than 0.012 COVID 19/influenza type A/influenza type B: Not detected EKG tracing personally reviewed by me: Normal sinus rhythm. Chest x-ray film personally reviewed by me-hyperinflation, prominent pulmonary artery Assessment and plan: -Acute exacerbation of severe steroid-dependent COPD in a previous smoker: [place] DuoNeb 3 times a day, oral prednisone decreased to home dose, Symbicort theophylline 300 mg daily at bedtime -Pseudomonas aeruginosa pneumonia IV cefepime. Changed to ciprofloxacin 5 mg twice a day-4 days -Acute on chronic hypoxic and hypercapnic type II respiratory failure from COPD: Better Baseline oxygen is 3 L, -Blood culture positive for Staphylococcus auricularis, - contaminant. *Vancomycin. Seen by ID -Anxiety not otherwise specified Xanax when necessary -Hyperlipidemia Lipitor -Diabetes mellitus type 2, chronically on oral hypoglycemic, Follow Accu-Cheks with sliding scale. Stop Levemir. Metformin -Essential hypertension Cardizem -Full code Disposition: [place] to rehab Plan - Discharge Summary Discharge Rx Participant: No New Discharge Prescriptions: New Theophylline 24 Hour [Frantz-24] 300 mg PO HS #30 cap Ciprofloxacin HCl [Cipro] 500 mg PO BID #8 tab Ipratropium-Albuterol Nebulize [Duoneb 0.5 mg-3 mg/3 ml Soln] 3 ml INHALATION TID each ALPRAZolam [Xanax] 0.5 mg PO BID PRN #6 tab PRN Reason: Anxiety Continue Fluticasone Nasal [place] [Flonase Nasal [place]] 1 spr EA NOSTRIL DAILY Diltiazem Cd [Cardizem CD] 120 mg PO DAILY Albuterol Inhaler [Ventolin Hfa Inhaler] 2 puff INHALATION RT-Q6H PRN PRN Reason: Shortness Of Breath Atorvastatin [Lipitor] 20 mg PO HS Ipratropium-Albuterol Nebulize [Duoneb 0.5 mg-3 mg/3 ml Soln] 3 ml INHALATION RT-Q4H PRN PRN Reason: Shortness Of Breath predniSONE 5 mg PO HS metFORMIN HCL ER [Glucophage XR] 500 mg PO BID-W/MEALS predniSONE 10 mg PO DAILY Fluticasone/Umeclidin/Vilanter [Trelegy Ellipta 100-62.5-25] 1 puff INHALATION RT-DAILY Discontinued ALPRAZolam [Xanax] 0.5 mg PO BID PRN PRN Reason: Anxiety Azithromycin [Zithromax Z Pack] See Taper PO DIRECTED ALPRAZolam [Xanax] 0.5 mg PO HS Discharge Medication List Albuterol Inhaler [Ventolin Hfa Inhaler] 2 puff INHALATION RT-Q6H PRN 02/06/19 [History] Atorvastatin [Lipitor] 20 mg PO HS 02/06/19 [History] Diltiazem Cd [Cardizem CD] 120 mg PO DAILY 02/06/19 [History] Fluticasone Nasal [place] [Flonase Nasal [place]] 1 spr EA NOSTRIL DAILY 02/06/19 [History] Ipratropium-Albuterol Nebulize [Duoneb 0.5 mg-3 mg/3 ml Soln] 3 ml INHALATION RT-Q4H PRN 02/06/19 [History] Fluticasone/Umeclidin/Vilanter [Trelegy Ellipta 100-62.5-25] 1 puff INHALATION RT-DAILY 09/20/22 [History] metFORMIN HCL ER [Glucophage XR] 500 mg PO BID-W/MEALS 09/20/22 [History] predniSONE 5 mg PO HS 09/20/22 [History] predniSONE 10 mg PO DAILY 09/20/22 [History] Theophylline 24 Hour [Frantz-24] 300 mg PO HS #30 cap 09/28/22 [Rx] ALPRAZolam [Xanax] 0.5 mg PO BID PRN #6 tab 10/01/22 [Rx] Ciprofloxacin HCl [Cipro] 500 mg PO BID #8 tab 10/01/22 [Rx] Ipratropium-Albuterol Nebulize [Duoneb 0.5 mg-3 mg/3 ml Soln] 3 ml INHALATION TID each 10/01/22 [Rx] Follow up Appointment(s)/Referral(s): [facility] [NON-STAFF] - Prasanna Valiente MD [Primary Care Provider] - 1-2 Days Kal Raymond MD [STAFF PHYSICIAN] - 10/07/22 2:30 pm Discharge/Stand Alone Forms: Who Do I Call?, Community Resources, Personal Store Operations Specialist
== END 2022-10-01 13:10 | DRG 190 ==
LOC: EC 13:41 → 5NMEDONC 16:00 → 3SCARD 18:08 → 6NMEDSUR 09-26 21:45
PROVIDERS: ADMIT Hospitalist; ATTEND Hospitalist
PROC: 0HBRXZZ Excision of Toe Nail, External Approach (ICD-10-PCS; 2022-09-26)
PROC: 0HBRXZZ Excision of Toe Nail, External Approach (ICD-10-PCS; 2022-09-26)
PROC: 0HBRXZZ Excision of Toe Nail, External Approach (ICD-10-PCS; 2022-09-26)
PROC: 0HBRXZZ Excision of Toe Nail, External Approach (ICD-10-PCS; 2022-09-26)
PROC: 0HBRXZZ Excision of Toe Nail, External Approach (ICD-10-PCS; 2022-09-26)
PROC: 0HBRXZZ Excision of Toe Nail, External Approach (ICD-10-PCS; 2022-09-26)
PROC: 0HBRXZZ Excision of Toe Nail, External Approach (ICD-10-PCS; 2022-09-26)
PROC: 0HBRXZZ Excision of Toe Nail, External Approach (ICD-10-PCS; 2022-09-26)
PROC: 0HBRXZZ Excision of Toe Nail, External Approach (ICD-10-PCS; principal; 2022-09-26 14:05)
PROC: 0HBRXZZ Excision of Toe Nail, External Approach (ICD-10-PCS; 2022-09-26 14:05)
DX: J44.1 Chronic obstructive pulmonary disease with (acute) exacerbation (principal); J15.1 Pneumonia due to Pseudomonas; J96.21 Acute and chronic respiratory failure with hypoxia; J96.22 Acute and chronic respiratory failure with hypercapnia; R78.81 Bacteremia; J95.09 Other tracheostomy complication; E11.65 Type 2 diabetes mellitus with hyperglycemia; J44.0 Chronic obstructive pulmonary disease with (acute) lower respiratory infection; I10 Essential (primary) hypertension; Z99.81 Dependence on supplemental oxygen; B35.1 Tinea unguium; B95.7 Other staphylococcus as the cause of diseases classified elsewhere; R79.89 Other specified abnormal findings of blood chemistry; F41.1 Generalized anxiety disorder; T38.0X5A Adverse effect of glucocorticoids and synthetic analogues, initial encounter; E78.5 Hyperlipidemia, unspecified; Z20.822 Contact with and (suspected) exposure to COVID-19; Z79.52 Long term (current) use of systemic steroids; Z87.891 Personal history of nicotine dependence; Z79.84 Long term (current) use of oral hypoglycemic drugs; Z79.82 Long term (current) use of aspirin; Z79.51 Long term (current) use of inhaled steroids; Z86.14 Personal history of Methicillin resistant Staphylococcus aureus infection; Z28.310 Unvaccinated for COVID-19; Z87.01 Personal history of pneumonia (recurrent); Z79.899 Other long term (current) drug therapy
CPT/HCPCS: 36410; 36415; 71045; 71046; 76937; 80048; 80053; 80202; 82565; 82803; 83605; 84145; 84484; 85025; 85610; 85730; 86140; 87040; 87070; 87077; 87186; 87205; 87502; 87635; 93005; 94640; 94760; 96374; 99285